=== PATIENT | male | born 1955 | race American Indian/Alaskan Native ===

== ENCOUNTER 2016-04-11 12:55 | Inpatient (IN) | payer MEDICARE ==
--- NOTE | 2016-04-11 15:21 | Admit Criteria Form ---
Admission Criteria Documentation: FEBRILE ILLNESS, WITHOUT FOCAL INFECTION Clinical Indications for Admission to Inpatient Care (Place 'X' for any and all applicable criteria): Admission is indicated for ANY ONE of the following (1)(2)(3): [ ] I. Bacteremia [ X]II. Suspected or identified specific infection requiring hospitalization (eg, meningitis, endocarditis) [ ]III. Hemodynamic instability [ ]IV. Altered mental status [ ]V. Failure or unavailability of outpatient antimicrobial treatment [ ]. Hypoxemia [ ]VII. Seizures [ ]VIII. High-risk febrile neutropenia [ ]IX. Need for parenteral antibiotic in patient who is likely to abuse vascular access device (eg, injection drug user) [A](7) [ ]X. Temperature greater than 104.9 degrees F (40.5 degrees C) (oral) [X ]XI. Inpatient admission required rather than observation care because of ANY ONE of the following: [X ]a) Specific infection identified that is too severe for outpatient treatment or observation care trial [ ]b) Metabolic disorder (eg, hypoglycemia, hyperglycemia, metabolic acidosis) that is severe or persistent [ ]c) Temperature greater than 103.1 degrees F (39.5 degrees C) ( oral) that is not responsive to observation care treatment [ ]d) IV fluid to replace significant ongoing (eg, for over 24 hours) losses (> 3 L/m2 per day) [ ]e) Supplemental oxygen or respiratory treatments for over 24 hours that is performable only in acute inpatient setting [ ]f) Parenteral nutrition regimen need that must be implemented on inpatient basis [ ]g) Strict or protective (eg, laminar flow) isolation [X ]h) Other condition, treatment or monitoring requiring inpatient admission Extended stay beyond goal length of stay may be needed for(1)(3) [ ]a) Sepsis or septic shock(22) [ ]b) Positive blood cultures [ ]c) Insufficient oral intake [ ]d) High-risk febrile neutropenia(29)(30) [ ]e) Continued fever and clinical instability [ ]f) Clinically active comorbid illness (e.g,heart failure, renal failure , diabetes) The [facility] content created by [facility] has been revised. The portions of the content which have been revised are identified through the use of italic text or in bold, and Celia Bojorquez has neither reviewed nor approved the modified material. All other unmodified content is copyright [facility]. Please see references footnoted in the original [facility] edition 2016 Admission Criteria Met: Yes
[2016-04-11] MEDS ORDERED: NACL 0.9% 1000 ML 1,000 ML IV ONE (15:35)
[2016-04-11] MEDS ORDERED: ROCEPHIN/NS 1 GM/50 ML 1 GM/50 ML BAG IV ONE (15:36)
[2016-04-11 16:07] LABS: Bacteria,Urine 1+ /HPF (Negative); Bilirubin,Urine NEG (Negative); Blood,Urine MOD (Negative); Ketones,Urine NEG (Negative); Leukocyte Esterase,Urine NEG (Negative); Nitrite,Urine NEG (Negative); Urobilinogen,Urine < 2.0 mg/dL (<2.0)
[2016-04-11 16:41] LABS: INR 1.8 (0.87-1.13)
[2016-04-11 16:42] LABS: Partial Thromboplastin Time 38.2 Sec. (24.2-36.6)
[2016-04-11] MEDS ORDERED: TYLENOL PO ONE (16:55)
--- NOTE | 2016-04-11 17:09 | XRay Report ---
PORTABLE CHEST: An AP portable view of the chest demonstrates a normal cardiac contour considering the limits of this technique. The lungs are clear with no evidence of infiltrate, fluid or failure. No change compared to November 25, 2009. IMPRESSION: Normal portable chest.
[2016-04-11 17:16] LABS: Hematocrit 36.4 % (35.5-45.6); Hemoglobin 12.4 gm/dl (11.8-15.2); Mean Corpuscular HGB Conc 34 % (32-34); Mean Corpuscular Hemoglobin 30 pg (28-32); Mean Corpuscular Volume 88 fl (84-94); Platelet Count 109 K/mm3 (140-440); Red Blood Count 4.14 M/mm3 (3.65-5.03); Red Cell Distribution Width 14.2 % (13.2-15.2); White Blood Count 27.9 K/mm3 (4.5-11.0)
[2016-04-11 17:57] LABS: Anisocytosis 1+; Blastocytes % (Manual) 0 %; Target Cells Few
[2016-04-11 17:58] LABS: Diff Status Complete; Platelet Estimate Appears Decreased
--- NOTE | 2016-04-11 18:01 | Emergency Department Report ---
ED General Adult HPI - General Chief complaint: Fall Stated complaint: FELL OUT OF BED/LAC TO HEAD Time Seen by Provider: 04/11/16 15:09 Source: patient Mode of arrival: Stretcher Limitations: No Limitations - History of Present Illness Initial comments: The patient is sent from a detention after falling and of a bed. Apparently he sustained a head avulsion. He is not complaining of any headache. He is persistently perseverating about having the nurse bring him to the bathroom. He is obviously a bit delirious. He is unable to give any significant history. However he can respond to questions. He denies any weakness or numbness in the extremities. Apparently he is on oral anticoagulation. He has a chronically swollen and somewhat deformed left leg. He is able to deny chest pain abdominal plain leg pain. Really has no specific complaints other than wanting to go to the bathroom. -: hour(s) Location: head - Related Data Home Medications Medication Instructions Recorded Confirmed Last Taken Citalopram [celeXA] 10 mg PO QDAY 04/11/16 04/11/16 Unknown Furosemide [Lasix TAB] 80 mg PO QDAY 04/11/16 04/11/16 Unknown Gabapentin [Neurontin] 800 mg PO BID 04/11/16 04/11/16 Unknown HYDROcodone/APAP 7.5-325 [Ramona 1 each PO Q8HR PRN 04/11/16 04/11/16 Unknown 7.5/325] Hydralazine HCl [Apresoline TAB] 50 mg PO Q8HR 04/11/16 04/11/16 Unknown Isosorbide Dinitrate [Isordil 20 mg PO TID 04/11/16 04/11/16 Unknown Titradose] Labetalol HCl 200 mg PO Q12H 04/11/16 04/11/16 Unknown Multivit-Min/Iron Fum/Folic AC 1 each PO DAILY 04/11/16 04/11/16 Unknown [Drsfg-Peppsji-Fiombjkg Tablet] Omeprazole 20.6 mg PO DAILY 04/11/16 04/11/16 Unknown Phenytoin [Dilantin] 100 mg PO QID 04/11/16 04/11/16 Unknown Potassium Chloride [Klor-Con 10] 10 meq PO DAILY 04/11/16 04/11/16 Unknown Protein Supplement [Promod] 30 ml PO BID 04/11/16 04/11/16 Unknown Spironolactone [Aldactone] 25 mg PO BID 04/11/16 04/11/16 Unknown Tamsulosin [Flomax] 0.4 mg PO QDAY 04/11/16 04/11/16 Unknown Warfarin Sodium [Coumadin] 4 mg PO QDAY 04/11/16 04/11/16 Unknown cloNIDine [Catapres] 0.2 mg PO QHS 04/11/16 04/11/16 Unknown Allergies Allergy/AdvReac Type Severity Reaction Status Date / Time No Known Allergies Allergy Unverified 04/04/13 21:52 ED Review of Systems ROS: Stated complaint: FELL OUT OF BED/LAC TO HEAD Other details as noted in HPI Comment: Unobtainable due to pts medical conditions ED Past Medical Hx - Past Medical History Previous Medical History?: Yes Hx Hypertension: Yes Hx CVA: Yes (IMPAIRED GAIT R/T CVA) Hx Seizures: Yes - Surgical History Past Surgical History?: Yes Additional Surgical History: hernia - Social History Smoking Status: Never Smoker Substance Use Type: None - Medications Home Medications: Home Medications Medication Instructions Recorded Confirmed Last Taken Type Citalopram [celeXA] 10 mg PO QDAY 04/11/16 04/11/16 Unknown History Furosemide [Lasix TAB] 80 mg PO QDAY 04/11/16 04/11/16 Unknown History Gabapentin [Neurontin] 800 mg PO BID 04/11/16 04/11/16 Unknown History HYDROcodone/APAP 7.5-325 [Ramona 1 each PO Q8HR PRN 04/11/16 04/11/16 Unknown History 7.5/325] Hydralazine HCl [Apresoline TAB] 50 mg PO Q8HR 04/11/16 04/11/16 Unknown History Isosorbide Dinitrate [Isordil 20 mg PO TID 04/11/16 04/11/16 Unknown History Titradose] Labetalol HCl 200 mg PO Q12H 04/11/16 04/11/16 Unknown History Multivit-Min/Iron Fum/Folic AC 1 each PO DAILY 04/11/16 04/11/16 Unknown History [Xzqfj-Csmfjna-Yjtfngmg Tablet] Omeprazole 20.6 mg PO DAILY 04/11/16 04/11/16 Unknown History Phenytoin [Dilantin] 100 mg PO QID 04/11/16 04/11/16 Unknown History Potassium Chloride [Klor-Con 10] 10 meq PO DAILY 04/11/16 04/11/16 Unknown History Protein Supplement [Promod] 30 ml PO BID 04/11/16 04/11/16 Unknown History Spironolactone [Aldactone] 25 mg PO BID 04/11/16 04/11/16 Unknown History Tamsulosin [Flomax] 0.4 mg PO QDAY 04/11/16 04/11/16 Unknown History Warfarin Sodium [Coumadin] 4 mg PO QDAY 04/11/16 04/11/16 Unknown History cloNIDine [Catapres] 0.2 mg PO QHS 04/11/16 04/11/16 Unknown History ED Physical Exam - General Limitations: No Limitations General appearance: other (febrile and somewhat agitated) - Head Head exam: Present: other (with a 2 cm anterior superficial forehead laceration) - Eye Eye exam: Absent: scleral icterus - ENT ENT exam: Present: normal exam - Neck Neck exam: Absent: tenderness, meningismus - Respiratory Respiratory exam: Present: normal lung sounds bilaterally. Absent: respiratory distress - Cardiovascular Cardiovascular Exam: Present: regular rate, normal rhythm. Absent: systolic murmur, diastolic murmur, rubs, gallop - GI/Abdominal GI/Abdominal exam: Present: soft. Absent: distended, tenderness, guarding, rebound - Extremities Exam Extremities exam: Present: other (cannot visualize patient's back substantial lymphedema of the left leg. Dressed ulcer. The right leg is wrapped tightly with an Krishna wrap. Externally rotated.). Absent: tenderness (acute tenderness to range of motion of the hip or lower extremity) - Back Exam Back exam: Present: other (cannot visualized asked nurses to inspect for decubiti) - Neurological Exam Neurological exam: Present: other (patient not moving left leg well history of functional quadriplegia). Absent: CN II-XII intact (no acute apparent cranial nerve deficit) - Psychiatric Psychiatric exam: Present: agitated - Skin Skin exam: Present: other (as above) - Other Other exam information: Popliteal pulses are present on Doppler both legs. Still pulses are negative per nurse bilaterally. ED Course Vital Signs 04/11/16 04/11/16 04/11/16 14:18 14:41 14:51 Temperature 98.1 F Pulse Rate 103 H 109 H Respiratory 16 23 Rate Blood Pressure 170/78 126/74 O2 Sat by Pulse 99 95 93 Oximetry 04/11/16 04/11/16 04/11/16 15:01 15:10 15:11 Temperature 103.1 F H Pulse Rate 111 H 113 H 116 H Respiratory 15 21 Rate Blood Pressure 126/74 106/70 O2 Sat by Pulse 86 89 Oximetry 04/11/16 04/11/16 04/11/16 15:21 15:30 15:41 Temperature Pulse Rate 110 H 107 H 106 H Respiratory 22 18 18 Rate Blood Pressure 106/70 102/46 102/46 O2 Sat by Pulse 94 90 90 Oximetry 04/11/16 04/11/16 04/11/16 15:51 16:00 16:02 Temperature Pulse Rate 107 H Respiratory 11 L 14 Rate Blood Pressure 102/46 102/46 O2 Sat by Pulse 95 93 98 Oximetry 04/11/16 04/11/16 04/11/16 16:11 16:21 16:30 Temperature Pulse Rate 104 H 102 H 101 H Respiratory 17 17 15 Rate Blood Pressure 90/51 90/51 94/51 O2 Sat by Pulse 90 94 89 Oximetry 04/11/16 04/11/16 04/11/16 16:41 16:51 16:52 Temperature 100.7 F H Pulse Rate 100 H 99 H Respiratory 13 15 Rate Blood Pressure 94/51 94/51 O2 Sat by Pulse 94 96 Oximetry 04/11/16 04/11/16 04/11/16 17:00 17:11 17:21 Temperature Pulse Rate 100 H 98 H 99 H Respiratory 14 13 16 Rate Blood Pressure 102/55 102/55 102/55 O2 Sat by Pulse 93 96 97 Oximetry 04/11/16 04/11/16 04/11/16 17:31 17:41 17:51 Temperature Pulse Rate 99 H 99 H 100 H Respiratory 15 14 18 Rate Blood Pressure 102/55 111/74 111/74 O2 Sat by Pulse 90 92 Oximetry 04/11/16 04/11/16 04/11/16 18:00 18:11 18:21 Temperature Pulse Rate 99 H 100 H 99 H Respiratory 16 14 17 Rate Blood Pressure 109/62 109/62 109/62 O2 Sat by Pulse 92 92 93 Oximetry 04/11/16 04/11/16 18:25 18:31 Temperature 100.6 F H Pulse Rate 100 H Respiratory 18 Rate Blood Pressure 109/62 O2 Sat by Pulse Oximetry - Reevaluation(s) Reevaluation #1: Currently the lab did not run the patient's chemistries. I have informed them of this. They're running now. Patient is very been admitted by Dr. Montalvo. He has had antibiotic coverage ordered. A bedside ultrasound was performed. This shows a DVT from the superficial femoral to popliteal vein of the left leg. Patient is partially anticoagulated. Dr. Montalvo is aware and will handle further anticoagulation requirements. The chest x-ray shows no acute process. EKG suggests no acute ischemia. 04/11/16 18:59 Reevaluation #2: Strays will be obtained of the lower extremities. Hospitalist was informed. 04/11/16 19:47 04/11/16 19:47 ED Medical Decision Making - Lab Data Result diagrams: 04/11/16 15:32 Laboratory Results - last 24 hr 04/11/16 04/11/16 04/11/16 15:32 15:32 15:32 WBC 27.9 H RBC 4.14 Hgb 12.4 Hct 36.4 MCV 88 MCH 30 MCHC 34 RDW 14.2 Plt Count 109 L Add Manual Diff Complete Total Counted 100 Seg Neuts % (Manual) 89.0 H Band Neutrophils % 10.0 Reactive Lymphs % (Man) 0 Monocytes % (Manual) 1.0 Metamyelocytes % 0 Myelocytes % 0 Promyelocytes % 0 Blast Cells % 0 Nucleated RBC % Not Reportable Seg Neutrophils # Man 24.8 H Band Neutrophils # 2.8 Lymphocytes # (Manual) 0.0 L Abs React Lymphs (Man) 0.0 Monocytes # (Manual) 0.3 Eosinophils # (Manual) 0.0 Basophils # (Manual) 0.0 Metamyelocytes # 0.0 Myelocytes # 0.0 Promyelocytes # 0.0 Blast Cells # 0.0 WBC Morphology Not Reportable Hypersegmented Neuts Not Reportable Hyposegmented Neuts Not Reportable Hypogranular Neuts Not Reportable Smudge Cells Not Reportable Toxic Granulation Not Reportable Toxic Vacuolation Not Reportable Dohle Bodies Not Reportable Pelger-Huet Anomaly Not Reportable Zonia Rods Not Reportable Platelet Estimate Appears decreased Clumped Platelets Not Reportable Plt Clumps, EDTA Not Reportable Large Platelets Not Reportable Giant Platelets Not Reportable Platelet Satelliting Not Reportable Plt Morphology Comment Not Reportable RBC Morphology Not Reportable Dimorphic RBCs Not Reportable Polychromasia Not Reportable Hypochromasia Not Reportable Poikilocytosis Not Reportable Anisocytosis 1+ Microcytosis Not Reportable Macrocytosis Not Reportable Spherocytes Not Reportable Pappenheimer Bodies Not Reportable Sickle Cells Not Reportable Target Cells Few Tear Drop Cells Not Reportable Ovalocytes Not Reportable Helmet Cells Not Reportable Crowell-Roca Bodies Not Reportable Gordon Rings Not Reportable [place] Cells Not Reportable Bite Cells Not Reportable Crenated Cell Not Reportable Elliptocytes Not Reportable Acanthocytes (Spur) Not Reportable Rouleaux Not Reportable Hemoglobin C Crystals Not Reportable Schistocytes Not Reportable Malaria parasites Not Reportable Wang Bodies Not Reportable Hem Pathologist Commnt No PT 20.9 H INR 1.80 H APTT 38.2 H Lactic Acid 1.9 Urine Color Urine Turbidity Urine pH Ur Specific [place] Urine Protein Urine Glucose (UA) Urine Ketones Urine Blood Urine Nitrite Urine Bilirubin Urine Urobilinogen Ur Leukocyte Esterase Urine WBC (Auto) Urine RBC (Auto) U Epithel Cells (Auto) Urine Bacteria (Auto) 04/11/16 15:38 WBC RBC Hgb Hct MCV MCH MCHC RDW Plt Count Add Manual Diff Total Counted Seg Neuts % (Manual) Band Neutrophils % Reactive Lymphs % (Man) Monocytes % (Manual) Metamyelocytes % Myelocytes % Promyelocytes % Blast Cells % Nucleated RBC % Seg Neutrophils # Man Band Neutrophils # Lymphocytes # (Manual) Abs React Lymphs (Man) Monocytes # (Manual) Eosinophils # (Manual) Basophils # (Manual) Metamyelocytes # Myelocytes # Promyelocytes # Blast Cells # WBC Morphology Hypersegmented Neuts Hyposegmented Neuts Hypogranular Neuts Smudge Cells Toxic Granulation Toxic Vacuolation Dohle Bodies Pelger-Huet Anomaly Zonia Rods Platelet Estimate Clumped Platelets Plt Clumps, EDTA Large Platelets Giant Platelets Platelet Satelliting Plt Morphology Comment RBC Morphology Dimorphic RBCs Polychromasia Hypochromasia Poikilocytosis Anisocytosis Microcytosis Macrocytosis Spherocytes Pappenheimer Bodies Sickle Cells Target Cells Tear Drop Cells Ovalocytes Helmet Cells Crowell-Roca Bodies Gordon Rings Susan Cells Bite Cells Crenated Cell Elliptocytes Acanthocytes (Spur) Rouleaux Hemoglobin C Crystals Schistocytes Malaria parasites Wang Bodies Hem Pathologist Commnt PT INR APTT Lactic Acid Urine Color Yellow Urine Turbidity Clear Urine pH 6.0 Ur Specific [place] 1.019 Urine Protein 30 mg/dl Urine Glucose (UA) Neg Urine Ketones Neg Urine Blood Mod Urine Nitrite Neg Urine Bilirubin Neg Urine Urobilinogen < 2.0 Ur Leukocyte Esterase Neg Urine WBC (Auto) 3.0 Urine RBC (Auto) 5.0 U Epithel Cells (Auto) < 1.0 Urine Bacteria (Auto) 1+ Laboratory Results - last 24 hr 04/11/16 04/11/16 04/11/16 15:32 15:32 15:32 WBC 27.9 H RBC 4.14 Hgb 12.4 Hct 36.4 MCV 88 MCH 30 MCHC 34 RDW 14.2 Plt Count 109 L Add Manual Diff Complete Total Counted 100 Seg Neuts % (Manual) 89.0 H Band Neutrophils % 10.0 Reactive Lymphs % (Man) 0 Monocytes % (Manual) 1.0 Metamyelocytes % 0 Myelocytes % 0 Promyelocytes % 0 Blast Cells % 0 Nucleated RBC % Not Reportable Seg Neutrophils # Man 24.8 H Band Neutrophils # 2.8 Lymphocytes # (Manual) 0.0 L Abs React Lymphs (Man) 0.0 Monocytes # (Manual) 0.3 Eosinophils # (Manual) 0.0 Basophils # (Manual) 0.0 Metamyelocytes # 0.0 Myelocytes # 0.0 Promyelocytes # 0.0 Blast Cells # 0.0 WBC Morphology Not Reportable Hypersegmented Neuts Not Reportable Hyposegmented Neuts Not Reportable Hypogranular Neuts Not Reportable Smudge Cells Not Reportable Toxic Granulation Not Reportable Toxic Vacuolation Not Reportable Dohle Bodies Not Reportable Pelger-Huet Anomaly Not Reportable Zonia Rods Not Reportable Platelet Estimate Appears decreased Clumped Platelets Not Reportable Plt Clumps, EDTA Not Reportable Large Platelets Not Reportable Giant Platelets Not Reportable Platelet Satelliting Not Reportable Plt Morphology Comment Not Reportable RBC Morphology Not Reportable Dimorphic RBCs Not Reportable Polychromasia Not Reportable Hypochromasia Not Reportable Poikilocytosis Not Reportable Anisocytosis 1+ Microcytosis Not Reportable Macrocytosis Not Reportable Spherocytes Not Reportable Pappenheimer Bodies Not Reportable Sickle Cells Not Reportable Target Cells Few Tear Drop Cells Not Reportable Ovalocytes Not Reportable Helmet Cells Not Reportable Crowell-Roca Bodies Not Reportable Gordon Rings Not Reportable [place] Cells Not Reportable Bite Cells Not Reportable Crenated Cell Not Reportable Elliptocytes Not Reportable Acanthocytes (Spur) Not Reportable Rouleaux Not Reportable Hemoglobin C Crystals Not Reportable Schistocytes Not Reportable Malaria parasites Not Reportable Wang Bodies Not Reportable Hem Pathologist Commnt No PT 20.9 H INR 1.80 H APTT 38.2 H Lactic Acid 1.9 Urine Color Urine Turbidity Urine pH Ur Specific [place] Urine Protein Urine Glucose (UA) Urine Ketones Urine Blood Urine Nitrite Urine Bilirubin Urine Urobilinogen Ur Leukocyte Esterase Urine WBC (Auto) Urine RBC (Auto) U Epithel Cells (Auto) Urine Bacteria (Auto) 04/11/16 15:38 WBC RBC Hgb Hct MCV MCH MCHC RDW Plt Count Add Manual Diff Total Counted Seg Neuts % (Manual) Band Neutrophils % Reactive Lymphs % (Man) Monocytes % (Manual) Metamyelocytes % Myelocytes % Promyelocytes % Blast Cells % Nucleated RBC % Seg Neutrophils # Man Band Neutrophils # Lymphocytes # (Manual) Abs React Lymphs (Man) Monocytes # (Manual) Eosinophils # (Manual) Basophils # (Manual) Metamyelocytes # Myelocytes # Promyelocytes # Blast Cells # WBC Morphology Hypersegmented Neuts Hyposegmented Neuts Hypogranular Neuts Smudge Cells Toxic Granulation Toxic Vacuolation Dohle Bodies Pelger-Huet Anomaly Zonia Rods Platelet Estimate Clumped Platelets Plt Clumps, EDTA Large Platelets Giant Platelets Platelet Satelliting Plt Morphology Comment RBC Morphology Dimorphic RBCs Polychromasia Hypochromasia Poikilocytosis Anisocytosis Microcytosis Macrocytosis Spherocytes Pappenheimer Bodies Sickle Cells Target Cells Tear Drop Cells Ovalocytes Helmet Cells Crowell-Roca Bodies Gordon Rings [place] Cells Bite Cells Crenated Cell Elliptocytes Acanthocytes (Spur) Rouleaux Hemoglobin C Crystals Schistocytes Malaria parasites Wang Bodies Hem Pathologist Commnt PT INR APTT Lactic Acid Urine Color Yellow Urine Turbidity Clear Urine pH 6.0 Ur Specific [place] 1.019 Urine Protein 30 mg/dl Urine Glucose (UA) Neg Urine Ketones Neg Urine Blood Mod Urine Nitrite Neg Urine Bilirubin Neg Urine Urobilinogen < 2.0 Ur Leukocyte Esterase Neg Urine WBC (Auto) 3.0 Urine RBC (Auto) 5.0 U Epithel Cells (Auto) < 1.0 Urine Bacteria (Auto) 1+ Laboratory Results - last 24 hr 04/11/16 04/11/16 04/11/16 15:32 15:32 15:32 WBC 27.9 H RBC 4.14 Hgb 12.4 Hct 36.4 MCV 88 MCH 30 MCHC 34 RDW 14.2 Plt Count 109 L Add Manual Diff Complete Total Counted 100 Seg Neuts % (Manual) 89.0 H Band Neutrophils % 10.0 Reactive Lymphs % (Man) 0 Monocytes % (Manual) 1.0 Metamyelocytes % 0 Myelocytes % 0 Promyelocytes % 0 Blast Cells % 0 Nucleated RBC % Not Reportable Seg Neutrophils # Man 24.8 H Band Neutrophils # 2.8 Lymphocytes # (Manual) 0.0 L Abs React Lymphs (Man) 0.0 Monocytes # (Manual) 0.3 Eosinophils # (Manual) 0.0 Basophils # (Manual) 0.0 Metamyelocytes # 0.0 Myelocytes # 0.0 Promyelocytes # 0.0 Blast Cells # 0.0 WBC Morphology Not Reportable Hypersegmented Neuts Not Reportable Hyposegmented Neuts Not Reportable Hypogranular Neuts Not Reportable Smudge Cells Not Reportable Toxic Granulation Not Reportable Toxic Vacuolation Not Reportable Dohle Bodies Not Reportable Pelger-Huet Anomaly Not Reportable Zonia Rods Not Reportable Platelet Estimate Appears decreased Clumped Platelets Not Reportable Plt Clumps, EDTA Not Reportable Large Platelets Not Reportable Giant Platelets Not Reportable Platelet Satelliting Not Reportable Plt Morphology Comment Not Reportable RBC Morphology Not Reportable Dimorphic RBCs Not Reportable Polychromasia Not Reportable Hypochromasia Not Reportable Poikilocytosis Not Reportable Anisocytosis 1+ Microcytosis Not Reportable Macrocytosis Not Reportable Spherocytes Not Reportable Pappenheimer Bodies Not Reportable Sickle Cells Not Reportable Target Cells Few Tear Drop Cells Not Reportable Ovalocytes Not Reportable Helmet Cells Not Reportable Crowell-Roca Bodies Not Reportable Gordon Rings Not Reportable Susan Cells Not Reportable Bite Cells Not Reportable Crenated Cell Not Reportable Elliptocytes Not Reportable Acanthocytes (Spur) Not Reportable Rouleaux Not Reportable Hemoglobin C Crystals Not Reportable Schistocytes Not Reportable Malaria parasites Not Reportable Wang Bodies Not Reportable Hem Pathologist Commnt No PT 20.9 H INR 1.80 H APTT 38.2 H Lactic Acid 1.9 Urine Color Urine Turbidity Urine pH Ur Specific [place] Urine Protein Urine Glucose (UA) Urine Ketones Urine Blood Urine Nitrite Urine Bilirubin Urine Urobilinogen Ur Leukocyte Esterase Urine WBC (Auto) Urine RBC (Auto) U Epithel Cells (Auto) Urine Bacteria (Auto) 04/11/16 15:38 WBC RBC Hgb Hct MCV MCH MCHC RDW Plt Count Add Manual Diff Total Counted Seg Neuts % (Manual) Band Neutrophils % Reactive Lymphs % (Man) Monocytes % (Manual) Metamyelocytes % Myelocytes % Promyelocytes % Blast Cells % Nucleated RBC % Seg Neutrophils # Man Band Neutrophils # Lymphocytes # (Manual) Abs React Lymphs (Man) Monocytes # (Manual) Eosinophils # (Manual) Basophils # (Manual) Metamyelocytes # Myelocytes # Promyelocytes # Blast Cells # WBC Morphology Hypersegmented Neuts Hyposegmented Neuts Hypogranular Neuts Smudge Cells Toxic Granulation Toxic Vacuolation Dohle Bodies Pelger-Huet Anomaly Zonia Rods Platelet Estimate Clumped Platelets Plt Clumps, EDTA Large Platelets Giant Platelets Platelet Satelliting Plt Morphology Comment RBC Morphology Dimorphic RBCs Polychromasia Hypochromasia Poikilocytosis Anisocytosis Microcytosis Macrocytosis Spherocytes Pappenheimer Bodies Sickle Cells Target Cells Tear Drop Cells Ovalocytes Helmet Cells Crowell-Roca Bodies Gordon Rings Susan Cells Bite Cells Crenated Cell Elliptocytes Acanthocytes (Spur) Rouleaux Hemoglobin C Crystals Schistocytes Malaria parasites Wang Bodies Hem Pathologist Commnt PT INR APTT Lactic Acid Urine Color Yellow Urine Turbidity Clear Urine pH 6.0 Ur Specific [place] 1.019 Urine Protein 30 mg/dl Urine Glucose (UA) Neg Urine Ketones Neg Urine Blood Mod Urine Nitrite Neg Urine Bilirubin Neg Urine Urobilinogen < 2.0 Ur Leukocyte Esterase Neg Urine WBC (Auto) 3.0 Urine RBC (Auto) 5.0 U Epithel Cells (Auto) < 1.0 Urine Bacteria (Auto) 1+ Laboratory Results - last 24 hr 04/11/16 04/11/16 04/11/16 15:32 15:32 15:32 WBC 27.9 H RBC 4.14 Hgb 12.4 Hct 36.4 MCV 88 MCH 30 MCHC 34 RDW 14.2 Plt Count 109 L Add Manual Diff Complete Total Counted 100 Seg Neuts % (Manual) 89.0 H Band Neutrophils % 10.0 Reactive Lymphs % (Man) 0 Monocytes % (Manual) 1.0 Metamyelocytes % 0 Myelocytes % 0 Promyelocytes % 0 Blast Cells % 0 Nucleated RBC % Not Reportable Seg Neutrophils # Man 24.8 H Band Neutrophils # 2.8 Lymphocytes # (Manual) 0.0 L Abs React Lymphs (Man) 0.0 Monocytes # (Manual) 0.3 Eosinophils # (Manual) 0.0 Basophils # (Manual) 0.0 Metamyelocytes # 0.0 Myelocytes # 0.0 Promyelocytes # 0.0 Blast Cells # 0.0 WBC Morphology Not Reportable Hypersegmented Neuts Not Reportable Hyposegmented Neuts Not Reportable Hypogranular Neuts Not Reportable Smudge Cells Not Reportable Toxic Granulation Not Reportable Toxic Vacuolation Not Reportable Dohle Bodies Not Reportable Pelger-Huet Anomaly Not Reportable Zonia Rods Not Reportable Platelet Estimate Appears decreased Clumped Platelets Not Reportable Plt Clumps, EDTA Not Reportable Large Platelets Not Reportable Giant Platelets Not Reportable Platelet Satelliting Not Reportable Plt Morphology Comment Not Reportable RBC Morphology Not Reportable Dimorphic RBCs Not Reportable Polychromasia Not Reportable Hypochromasia Not Reportable Poikilocytosis Not Reportable Anisocytosis 1+ Microcytosis Not Reportable Macrocytosis Not Reportable Spherocytes Not Reportable Pappenheimer Bodies Not Reportable Sickle Cells Not Reportable Target Cells Few Tear Drop Cells Not Reportable Ovalocytes Not Reportable Helmet Cells Not Reportable Crowell-Roca Bodies Not Reportable Gordon Rings Not Reportable [place] Cells Not Reportable Bite Cells Not Reportable Crenated Cell Not Reportable Elliptocytes Not Reportable Acanthocytes (Spur) Not Reportable Rouleaux Not Reportable Hemoglobin C Crystals Not Reportable Schistocytes Not Reportable Malaria parasites Not Reportable Wang Bodies Not Reportable Hem Pathologist Commnt No PT 20.9 H INR 1.80 H APTT 38.2 H Sodium Potassium Chloride Carbon Dioxide Anion Gap BUN Creatinine Estimated GFR BUN/Creatinine Ratio Glucose Lactic Acid 1.9 Calcium Urine Color Urine Turbidity Urine pH Ur Specific [place] Urine Protein Urine Glucose (UA) Urine Ketones Urine Blood Urine Nitrite Urine Bilirubin Urine Urobilinogen Ur Leukocyte Esterase Urine WBC (Auto) Urine RBC (Auto) U Epithel Cells (Auto) Urine Bacteria (Auto) 04/11/16 04/11/16 15:38 18:21 WBC RBC Hgb Hct MCV MCH MCHC RDW Plt Count Add Manual Diff Total Counted Seg Neuts % (Manual) Band Neutrophils % Reactive Lymphs % (Man) Monocytes % (Manual) Metamyelocytes % Myelocytes % Promyelocytes % Blast Cells % Nucleated RBC % Seg Neutrophils # Man Band Neutrophils # Lymphocytes # (Manual) Abs React Lymphs (Man) Monocytes # (Manual) Eosinophils # (Manual) Basophils # (Manual) Metamyelocytes # Myelocytes # Promyelocytes # Blast Cells # WBC Morphology Hypersegmented Neuts Hyposegmented Neuts Hypogranular Neuts Smudge Cells Toxic Granulation Toxic Vacuolation Dohle Bodies Pelger-Huet Anomaly Zonia Rods Platelet Estimate Clumped Platelets Plt Clumps, EDTA Large Platelets Giant Platelets Platelet Satelliting Plt Morphology Comment RBC Morphology Dimorphic RBCs Polychromasia Hypochromasia Poikilocytosis Anisocytosis Microcytosis Macrocytosis Spherocytes Pappenheimer Bodies Sickle Cells Target Cells Tear Drop Cells Ovalocytes Helmet Cells Crowell-Roca Bodies Gordon Rings Susan Cells Bite Cells Crenated Cell Elliptocytes Acanthocytes (Spur) Rouleaux Hemoglobin C Crystals Schistocytes Malaria parasites Wang Bodies Hem Pathologist Commnt PT INR APTT Sodium 141 Potassium 4.5 Chloride 102.0 Carbon Dioxide 25 Anion Gap 19 BUN 32 H Creatinine 1.8 H Estimated GFR 46 BUN/Creatinine Ratio 17.77 Glucose 71 L Lactic Acid Calcium 8.4 Urine Color Yellow Urine Turbidity Clear Urine pH 6.0 Ur Specific [place] 1.019 Urine Protein 30 mg/dl Urine Glucose (UA) Neg Urine Ketones Neg Urine Blood Mod Urine Nitrite Neg Urine Bilirubin Neg Urine Urobilinogen < 2.0 Ur Leukocyte Esterase Neg Urine WBC (Auto) 3.0 Urine RBC (Auto) 5.0 U Epithel Cells (Auto) < 1.0 Urine Bacteria (Auto) 1+ Laboratory Results - last 24 hr 04/11/16 04/11/16 04/11/16 15:32 15:32 15:32 WBC 27.9 H RBC 4.14 Hgb 12.4 Hct 36.4 MCV 88 MCH 30 MCHC 34 RDW 14.2 Plt Count 109 L Add Manual Diff Complete Total Counted 100 Seg Neuts % (Manual) 89.0 H Band Neutrophils % 10.0 Reactive Lymphs % (Man) 0 Monocytes % (Manual) 1.0 Metamyelocytes % 0 Myelocytes % 0 Promyelocytes % 0 Blast Cells % 0 Nucleated RBC % Not Reportable Seg Neutrophils # Man 24.8 H Band Neutrophils # 2.8 Lymphocytes # (Manual) 0.0 L Abs React Lymphs (Man) 0.0 Monocytes # (Manual) 0.3 Eosinophils # (Manual) 0.0 Basophils # (Manual) 0.0 Metamyelocytes # 0.0 Myelocytes # 0.0 Promyelocytes # 0.0 Blast Cells # 0.0 WBC Morphology Not Reportable Hypersegmented Neuts Not Reportable Hyposegmented Neuts Not Reportable Hypogranular Neuts Not Reportable Smudge Cells Not Reportable Toxic Granulation Not Reportable Toxic Vacuolation Not Reportable Dohle Bodies Not Reportable Pelger-Huet Anomaly Not Reportable Zonia Rods Not Reportable Platelet Estimate Appears decreased Clumped Platelets Not Reportable Plt Clumps, EDTA Not Reportable Large Platelets Not Reportable Giant Platelets Not Reportable Platelet Satelliting Not Reportable Plt Morphology Comment Not Reportable RBC Morphology Not Reportable Dimorphic RBCs Not Reportable Polychromasia Not Reportable Hypochromasia Not Reportable Poikilocytosis Not Reportable Anisocytosis 1+ Microcytosis Not Reportable Macrocytosis Not Reportable Spherocytes Not Reportable Pappenheimer Bodies Not Reportable Sickle Cells Not Reportable Target Cells Few Tear Drop Cells Not Reportable Ovalocytes Not Reportable Helmet Cells Not Reportable Crowell-[place] Bodies Not Reportable Gordon Rings Not Reportable Susan Cells Not Reportable Bite Cells Not Reportable Crenated Cell Not Reportable Elliptocytes Not Reportable Acanthocytes (Spur) Not Reportable Rouleaux Not Reportable Hemoglobin C Crystals Not Reportable Schistocytes Not Reportable Malaria parasites Not Reportable Wang Bodies Not Reportable Hem Pathologist Commnt No PT 20.9 H INR 1.80 H APTT 38.2 H Sodium Potassium Chloride Carbon Dioxide Anion Gap BUN Creatinine Estimated GFR BUN/Creatinine Ratio Glucose Lactic Acid 1.9 Calcium Urine Color Urine Turbidity Urine pH Ur Specific [place] Urine Protein Urine Glucose (UA) Urine Ketones Urine Blood Urine Nitrite Urine Bilirubin Urine Urobilinogen Ur Leukocyte Esterase Urine WBC (Auto) Urine RBC (Auto) U Epithel Cells (Auto) Urine Bacteria (Auto) 04/11/16 04/11/16 15:38 18:21 WBC RBC Hgb Hct MCV MCH MCHC RDW Plt Count Add Manual Diff Total Counted Seg Neuts % (Manual) Band Neutrophils % Reactive Lymphs % (Man) Monocytes % (Manual) Metamyelocytes % Myelocytes % Promyelocytes % Blast Cells % Nucleated RBC % Seg Neutrophils # Man Band Neutrophils # Lymphocytes # (Manual) Abs React Lymphs (Man) Monocytes # (Manual) Eosinophils # (Manual) Basophils # (Manual) Metamyelocytes # Myelocytes # Promyelocytes # Blast Cells # WBC Morphology Hypersegmented Neuts Hyposegmented Neuts Hypogranular Neuts Smudge Cells Toxic Granulation Toxic Vacuolation Dohle Bodies Pelger-Huet Anomaly Zonia Rods Platelet Estimate Clumped Platelets Plt Clumps, EDTA Large Platelets Giant Platelets Platelet Satelliting Plt Morphology Comment RBC Morphology Dimorphic RBCs Polychromasia Hypochromasia Poikilocytosis Anisocytosis Microcytosis Macrocytosis Spherocytes Pappenheimer Bodies Sickle Cells Target Cells Tear Drop Cells Ovalocytes Helmet Cells Crowell-[place] Bodies Gordon Rings Susan Cells Bite Cells Crenated Cell Elliptocytes Acanthocytes (Spur) Rouleaux Hemoglobin C Crystals Schistocytes Malaria parasites Wang Bodies Hem Pathologist Commnt PT INR APTT Sodium 141 Potassium 4.5 Chloride 102.0 Carbon Dioxide 25 Anion Gap 19 BUN 32 H Creatinine 1.8 H Estimated GFR 46 BUN/Creatinine Ratio 17.77 Glucose 71 L Lactic Acid Calcium 8.4 Urine Color Yellow Urine Turbidity Clear Urine pH 6.0 Ur Specific [place] 1.019 Urine Protein 30 mg/dl Urine Glucose (UA) Neg Urine Ketones Neg Urine Blood Mod Urine Nitrite Neg Urine Bilirubin Neg Urine Urobilinogen < 2.0 Ur Leukocyte Esterase Neg Urine WBC (Auto) 3.0 Urine RBC (Auto) 5.0 U Epithel Cells (Auto) < 1.0 Urine Bacteria (Auto) 1+ - EKG Data -: EKG Interpreted by Mn EKG shows normal: sinus rhythm, axis, intervals, ST-T waves Rate: normal - EKG Data Interpretation: other (old inferior wall qs noted nonspecific ST-T wave changes hold his oral Deltasone) - Radiology Data interpreted by me: X-ray no acute process A CT of head showed no acute process Critical care attestation.: If time is entered above; I have spent that time in minutes in the direct care of this critically ill patient, excluding procedure time. ED Disposition Clinical Impression: Febrile illness, acute, Peripheral vascular disease of lower extremity, Lymphedema of left leg, Infected stasis ulcer of left lower extremity Scalp laceration Qualifiers: Encounter type: initial encounter Qualified Code(s): S01.01XA - Laceration without foreign body of scalp, initial encounter Leukocytosis Qualifiers: Leukocytosis type: unspecified Qualified Code(s): D72.829 - Elevated white blood cell count, unspecified Acute deep vein thrombosis of left lower extremity Qualifiers: Affected thrombotic vein of extremity: femoral Qualified Code(s): I82.412 - Acute embolism and thrombosis of left femoral vein Disposition: OP ADMITTED IP TO THIS HOSP Is pt being admited?: Yes Does the pt Need Aspirin: Yes Condition: Stable Referrals: PRIMARY CARE, [Primary Care Provider] - 3-5 Days Time of Disposition: 19:04
--- NOTE | 2016-04-11 18:23 | History and Physical Report ---
History of Present Illness Date of examination: 04/11/16 Chief complaint: Fall History of present illness: Patient is a 61-year-old man from senior care with a history of functional quadriplegia, depression, Leg lymphedema, chronic venous stasis Leg ulcers, BPH , leg DVT on warfarin, seizure disorder and hypertension who presents with falling out of the causing laceration to his left upper forehead followed by confusion. He was found to be febrile in emergency department. 04/11/16 Venous leg Doppler shows CHRONIC DVT NOTED IN [employer], ACUTE DVT NOTED IN [facility], DR. BRODERICK INFORMED. pCxr: normal Past History Past Surgical History: Other (no answering) Social history: full code. denies: smoking, alcohol abuse, prescription drug abuse, IV drug use Family history: no significant family history Medications and Allergies Allergies Allergy/AdvReac Type Severity Reaction Status Date / Time No Known Allergies Allergy Unverified 04/04/13 21:52 Home Medications Medication Instructions Recorded Confirmed Last Taken Type Citalopram [celeXA] 10 mg PO QDAY 04/11/16 04/11/16 Unknown History Furosemide [Lasix TAB] 80 mg PO QDAY 04/11/16 04/11/16 Unknown History Gabapentin [Neurontin] 800 mg PO BID 04/11/16 04/11/16 Unknown History HYDROcodone/APAP 7.5-325 [[place] 1 each PO Q8HR PRN 04/11/16 04/11/16 Unknown History 7.5/325] Hydralazine HCl [Apresoline TAB] 50 mg PO Q8HR 04/11/16 04/11/16 Unknown History Isosorbide Dinitrate [Isordil 20 mg PO TID 04/11/16 04/11/16 Unknown History Titradose] Labetalol HCl 200 mg PO Q12H 04/11/16 04/11/16 Unknown History Multivit-Min/Iron Fum/Folic AC 1 each PO DAILY 04/11/16 04/11/16 Unknown History [Qjjrd-Hvxkrvj-Dikphcfm Tablet] Omeprazole 20.6 mg PO DAILY 04/11/16 04/11/16 Unknown History Phenytoin [Dilantin] 100 mg PO QID 04/11/16 04/11/16 Unknown History Potassium Chloride [Klor-Con 10] 10 meq PO DAILY 04/11/16 04/11/16 Unknown History Protein Supplement [Promod] 30 ml PO BID 04/11/16 04/11/16 Unknown History Spironolactone [Aldactone] 25 mg PO BID 04/11/16 04/11/16 Unknown History Tamsulosin [Flomax] 0.4 mg PO QDAY 04/11/16 04/11/16 Unknown History Warfarin Sodium [Coumadin] 4 mg PO QDAY 04/11/16 04/11/16 Unknown History cloNIDine [Catapres] 0.2 mg PO QHS 04/11/16 04/11/16 Unknown History Active Meds: Active Medications Acetaminophen/Hydrocodone Bitart ([place] 7.5/325) 1 each PO Q8HR PRN PRN Reason: Pain Citalopram Hydrobromide (Celexa) 10 mg PO QDAY DAVI Clonidine HCl (Catapres) 0.2 mg PO QHS [facility] Sodium Chloride (Nacl 0.9% 1000 Ml) 1,000 mls @ 125 mls/hr IV ONCE ONE Stop: 04/11/16 23:34 Last Admin: 04/11/16 16:24 Dose: 125 mls/hr Piperacillin Sod/Tazobactam Sod (Zosyn/Ns 4.5gm/100ml) 4.5 gm in 100 mls @ 200 mls/hr IV Q8H DAVI PRN Reason: Protocol Isosorbide Dinitrate (Isordil Titradose) 20 mg PO TID DAVI Miscellaneous Medication (Furosemide [Lasix Tab]) 80 mg PO QDAY [facility] Miscellaneous Medication (Gabapentin [Neurontin]) 800 mg PO BID DAVI Miscellaneous Medication (Hydralazine Hcl [Apresoline Tab]) 50 mg PO Q8HR [facility] Miscellaneous Medication (Multivit-Min/Iron Fum/Folic Ac [Multi-Vitamin- Minerals Tablet]) 1 each PO DAILY DAVI Phenytoin (Dilantin) 100 mg PO QID DAVI Tamsulosin HCl (Flomax) 0.4 mg PO QDAY DAVI Vancomycin HCl (Vancomycin Pharmacy To Dose) 1 each IV PKCONSULT DAVI PRN Reason: Protocol Review of Systems ROS unobtainable: due to mental status Exam - Physical Exam Narrative exam: GEN: WDWN, NAD, AWAKE, ALERT, ORIENTATED x 2 HEENT: No NCAT--?quarter size ulcer laceration with old blood left frontal above forehead on the hairline, PERRL, EOMI, OP CLEAR NECK: SUPPLE, NO THYROMEGALY, NO JVD, NO LAD CVS: regular tachycardia, NORMAL S1S2 LUNGS/CHEST: CTA B, NORMAL CHEST EXPANSION B, GOOD AIR ENTRY B ABD: SOFT NTND, GBS, NO REBOUND OR GUARDING EXT/SKIN: bilateral lymphedema, left leg > right leg. Both with chronic venous changes MSK: legs contracted NEURO: CN 2-12 GROSSLY INTACT, NO new FOCAL DEFICITS PSY: CALM - Constitutional Vitals: Temp Pulse Resp BP Pulse Ox 100.7 F H 99 H 16 109/62 92 04/11/16 16:52 04/11/16 18:00 04/11/16 18:00 04/11/16 18:00 04/11/16 18:00 Results - Labs CBC & Chem 7: 04/11/16 15:32 Labs: Abnormal lab results 04/11/16 04/11/16 Range/Units 15:32 15:32 WBC 27.9 H (4.5-11.0) K/mm3 Plt Count 109 L (140-440) K/mm3 Seg Neuts % (Manual) 89.0 H (40.0-70.0) % Seg Neutrophils # Man 24.8 H (1.8-7.7) K/mm3 Lymphocytes # (Manual) 0.0 L (1.2-5.4) K/mm3 PT 20.9 H (12.2-14.9) Sec. INR 1.80 H (0.87-1.13) APTT 38.2 H (24.2-36.6) Sec. Assessment and Plan Patient is a 61-year-old man from senior care with a history of functional quadriplegia, depression, Leg lymphedema, chronic venous stasis Leg ulcers, BPH , leg DVT on warfarin, seizure disorder and hypertension who presents with falling out of the causing laceration to his left upper forehead followed by confusion. He was found to be febrile in emergency department. 04/11/16 Venous leg Doppler shows CHRONIC DVT NOTED IN [employer], ACUTE DVT NOTED IN [facility] V, DR. MEGGAN GARCIA. pCxr: normal 1. Sepsis most likely from leg cellulitis: iv vanc and zosyn, consider ID consult, wound care. 2. Acute on chronic left leg DVT: He is already on Warfarin, not therapeutic, will address 3. Acute encephalopathy due to the above. 4. Fall and head trauma: get CT head, Physical therapy
[2016-04-11 18:57] LABS: BUN/Creatinine Ratio 17.77; Calcium 8.4 mg/dL (8.4-10.2); Potassium 4.5 mmol/L (3.6-5.0)
[2016-04-11] MEDS ORDERED: VANCOMYCIN PHARMACY TO DOSE IV SCH (19:00)
--- NOTE | 2016-04-11 19:16 | Cat Scan Report ---
FINAL REPORT PROCEDURE: CT HEAD/BRAIN WO CON TECHNIQUE: Computerized tomography of the head was performed without contrast material. HISTORY: head trauma pain COMPARISON: No prior studies are available for comparison. FINDINGS: Visualized portions of the paranasal sinuses and mastoid air cells are clear. No calvarial fracture is seen. Old lisa holes are seen in the frontal skull. Idiopathic calcifications are seen in the falx. Cerebral ventricles are normal in size. Moderate diffuse volume loss the brain is advanced for the patient's age. Moderate chronic small vessel ischemic changes are seen. No acute intracranial hemorrhage or mass effect is seen. IMPRESSION: Moderate chronic small vessel ischemic changes are seen without evidence of acute abnormality.
[2016-04-11 19:48] LABS: Alanine Aminotransferase 30 units/L (7-56); Albumin 3.7 g/dL (3.9-5); Albumin/Globulin Ratio 0.8 %; Alkaline Phosphatase 105 units/L (35-129); Anion Gap 20 mmol/L; BUN/Creatinine Ratio 17.22; Bilirubin,Total 0.5 mg/dL (0.1-1.2); Blood Urea Nitrogen 31 mg/dL (9-20); Calcium 8.7 mg/dL (8.4-10.2); Carbon Dioxide 25 mmol/L (22-30); Chloride 98.8 mmol/L (98-107); Glucose 71 mg/dL (75-100); Potassium 4.1 mmol/L (3.6-5.0); Sodium 140 mmol/L (137-145); Total Protein 8.1 g/dL (6.3-8.2)
[2016-04-11] MEDS ORDERED: BABY ASPIRIN PO ONE (19:48)
[2016-04-11 19:54] LABS: Bilirubin,Direct < 0.2 mg/dL (0-0.2); Bilirubin,Indirect 0.3 mg/dL
[2016-04-11 20:00] LABS: Cholesterol 135 mg/dL (50-199); Triglycerides 78 mg/dL (2-149)
[2016-04-11] MEDS ORDERED: VANCOMYCIN VIAL 1,250 MG in NACL 0.9% 250ML 250 ML IV ONE (20:00)
[2016-04-11 20:01] LABS: HDL Cholesterol 68 mg/dL (40-59); LDL Cholesterol,Direct 52 mg/dL (50-130)
[2016-04-11] MEDS ORDERED: TENIVAC IM ONE (21:00)
[2016-04-11] MEDS ORDERED: NON-FORMULARY (Hydralazine Hcl [Apresoline Tab] 50 MG) PO SCH (22:00)
[2016-04-11] MEDS ORDERED: NON-FORMULARY (Gabapentin [Neurontin] 800 MG) PO SCH (22:00)
[2016-04-11] MEDS: ISORDIL TITRADOSE PO SCH (23:07)
[2016-04-11] MEDS ORDERED: BABY ASPIRIN ONE (23:10)
[2016-04-11] MEDS: ZOSYN/NS 4.5GM/100ML 4.5 GM/100 ML VIAL IV SCH (23:14)
[2016-04-12] MEDS: CATAPRES PO SCH ×3 (04:59→23:31)
[2016-04-12] MEDS: DILANTIN PO SCH ×6 (05:00→23:30)
[2016-04-12] MEDS: APRESOLINE PO SCH ×5 (05:00→23:30)
[2016-04-12] MEDS: NEURONTIN PO SCH ×4 (05:00→23:31)
[2016-04-12] MEDS: ZOSYN/NS 4.5GM/100ML 4.5 GM/100 ML VIAL IV SCH ×3 (05:00→21:27)
[2016-04-12] MEDS: HEPARIN SUB-Q SCH ×5 (05:00→23:33)
[2016-04-12] MEDS: NORCO 7.5/325 PO PRN ×3 (05:19→23:30)
[2016-04-12 05:51] LABS: INR 2.18 (0.87-1.13)
--- NOTE | 2016-04-12 07:47 | Vascular Lab Report ---
Left Lower Extremity Venous Duplex Study: Reason for Exam: Swelling. Comments on the Right: A limited duplex study was done of the proximal veins of the right lower extremity. All veins visualized are freely compressible without evidence of internal echogenicity. Flow is spontaneous and phasic throughout. No evidence of acute or chronic thrombus is seen in any of the vessels visualized. Comments on the Left: Acute deep venous thrombosis is noted in the popliteal vein. Currently nonocclusive deep venous thrombosis noted in the femoral vein. Soft tissue changes noted in the left side. The significance of them is uncertain. If clinically warranted followup CT or MRI should be considered. The remaining veins visualized are freely compressible without evidence of internal echogenicity. Spontaneous and phasic flow is present proximally. Impression: Deep venous thrombosis in the left lower extremity.
--- NOTE | 2016-04-12 08:05 | XRay Report ---
LEFT FEMUR: History: Pain after fall, deformity. AP and lateral views of the femur demonstrate normal mineralization and contours for this patient's age. No destructive changes are noted and the adjacent soft tissues are normal. IMPRESSION: Unremarkable left femur.
--- NOTE | 2016-04-12 09:38 | XRay Report ---
LEFT TIBIA AND FIBULA, 2 VIEWS: HISTORY: Deformity, pain after fall. FINDINGS: There is severe diffuse subcutaneous edema. Bone mineralization is within normal limits. There is no evidence for fracture, periostitis or bony destruction. IMPRESSION: Diffuse subcutaneous edema. No osseous abnormality is detected.
[2016-04-12] MEDS ORDERED: NON-FORMULARY (Furosemide [Lasix Tab] 80 MG) PO SCH (10:00)
[2016-04-12] MEDS ORDERED: LASIX PO SCH (10:00)
[2016-04-12] MEDS ORDERED: NON-FORMULARY (Multivit-Min/Iron Fum/Folic Ac [Multi-Vitamin-Minerals Tablet] 1 EACH) PO SCH (10:00)
[2016-04-12] MEDS: celeXA PO SCH (11:07)
[2016-04-12] MEDS: FLOMAX PO SCH (11:07)
[2016-04-12] MEDS: ISORDIL TITRADOSE PO SCH ×3 (11:07→21:00)
[2016-04-12] MEDS: THERAGRAN Tab PO SCH (11:08)
[2016-04-12] MEDS: LASIX PO SCH ×2 (11:08→23:31)
[2016-04-12] MEDS: COUMADIN PO SCH (16:43)
[2016-04-12] MEDS ORDERED: COUMADIN PO SCH (17:00)
--- NOTE | 2016-04-12 19:27 | Progress Note ---
Assessment and Plan Assessment and plan: 1. Sepsis likely secondary to leg cellulitis - started on broad spectrum antibiotics, ivf 2. Bilateral LE lymphedema and ulcers - local wound care 3. Acute on chronic DVT LLE - INR subtherapeutic on admission, WARFARIN dose adjusted 4. Acute renal failure - likely secondary to vasomotor nephropathy; continue ivf ; monitor bun/cr and electrolytes; if further worsening, obtain renal US and urine studies 5. Acute metabolic encephalopathy - treat underlying conditions; check Dilantin level 6. Elevated troponin - likely nonspecific in the setting of acute renal failure 7. Seizure disoredr - continue Dilantin, check level 8. HTN - on Clonidine, spironolactone, labetalol, lasix; (BB, diuretic - spironolactone on hold); monitor BP and adjust regimen as needed 9. Fall - Ct head with no acute abnormality; X-rays L femur, tibia/fibula with no fracture or dislocation 10. Debility/? bedbound - evaluated by PT and is totally depended with transfers ; not a candidate for [facility] facility 11. DVT prophylaxis - anticoagulated with warfarin History Interval history: awake, alert, but confused no events overnight Hospitalist Physical - Constitutional Vitals: Temp Pulse Resp BP Pulse Ox 99.9 F H 108 H 18 94/52 92 04/12/16 15:10 04/12/16 15:10 04/12/16 15:10 04/12/16 15:10 04/12/16 13:31 General appearance: Present: no acute distress, other (thin, chronically-ill appearing, bedbound) - EENT Eyes: Present: PERRL, EOM intact - Neck Neck: Present: supple, normal ROM. Absent: masses or JVD - Respiratory Respiratory effort: normal Respiratory: bilateral: CTA, negative: rales, rhonchi - Cardiovascular Rhythm: other (tachycardic) Heart Sounds: Present: S1 & S2. Absent: systolic murmur - Extremities Extremities: no ischemia, abnormal (LE lymphedema L>R, chronic venous stasis, LLE warmth and tenderness) - Abdominal General gastrointestinal: soft, non-tender, non-distended, normal bowel sounds - Neurologic Neurologic: other (unable to assess) Results - Labs CBC & Chem 7: 04/13/16 08:51 04/13/16 08:51 Labs: Laboratory Last Values WBC 27.9 K/mm3 (4.5-11.0) H 04/11/16 15:32 RBC 4.14 M/mm3 (3.65-5.03) 04/11/16 15:32 Hgb 12.4 gm/dl (11.8-15.2) 04/11/16 15:32 Hct 36.4 % (35.5-45.6) 04/11/16 15:32 MCV 88 fl (84-94) 04/11/16 15:32 MCH 30 pg (28-32) 04/11/16 15:32 MCHC 34 % (32-34) 04/11/16 15:32 RDW 14.2 % (13.2-15.2) 04/11/16 15:32 Plt Count 109 K/mm3 (140-440) L 04/11/16 15:32 Add Manual Diff Complete 04/11/16 15:32 Total Counted 100 04/11/16 15:32 Seg Neuts % (Manual) 89.0 % (40.0-70.0) H 04/11/16 15:32 Band Neutrophils % 10.0 % 04/11/16 15:32 Reactive Lymphs % (Man) 0 % 04/11/16 15:32 Monocytes % (Manual) 1.0 % (0.0-7.3) 04/11/16 15:32 Metamyelocytes % 0 % 04/11/16 15:32 Myelocytes % 0 % 04/11/16 15:32 Promyelocytes % 0 % 04/11/16 15:32 Blast Cells % 0 % 04/11/16 15:32 Nucleated RBC % Not Reportable 04/11/16 15:32 Seg Neutrophils # Man 24.8 K/mm3 (1.8-7.7) H 04/11/16 15:32 Band Neutrophils # 2.8 K/mm3 04/11/16 15:32 Lymphocytes # (Manual) 0.0 K/mm3 (1.2-5.4) L 04/11/16 15:32 Abs React Lymphs (Man) 0.0 K/mm3 04/11/16 15:32 Monocytes # (Manual) 0.3 K/mm3 (0.0-0.8) 04/11/16 15:32 Eosinophils # (Manual) 0.0 K/mm3 (0.0-0.4) 04/11/16 15:32 Basophils # (Manual) 0.0 K/mm3 (0.0-0.1) 04/11/16 15:32 Metamyelocytes # 0.0 K/mm3 04/11/16 15:32 Myelocytes # 0.0 K/mm3 04/11/16 15:32 Promyelocytes # 0.0 K/mm3 04/11/16 15:32 Blast Cells # 0.0 K/mm3 04/11/16 15:32 WBC Morphology Not Reportable 04/11/16 15:32 Hypersegmented Neuts Not Reportable 04/11/16 15:32 Hyposegmented Neuts Not Reportable 04/11/16 15:32 Hypogranular Neuts Not Reportable 04/11/16 15:32 Smudge Cells Not Reportable 04/11/16 15:32 Toxic Granulation Not Reportable 04/11/16 15:32 Toxic Vacuolation Not Reportable 04/11/16 15:32 Dohle Bodies Not Reportable 04/11/16 15:32 Pelger-Huet Anomaly Not Reportable 04/11/16 15:32 Zonia Rods Not Reportable 04/11/16 15:32 Platelet Estimate Appears decreased 04/11/16 15:32 Clumped Platelets Not Reportable 04/11/16 15:32 Plt Clumps, EDTA Not Reportable 04/11/16 15:32 Large Platelets Not Reportable 04/11/16 15:32 Giant Platelets Not Reportable 04/11/16 15:32 Platelet Satelliting Not Reportable 04/11/16 15:32 Plt Morphology Comment Not Reportable 04/11/16 15:32 RBC Morphology Not Reportable 04/11/16 15:32 Dimorphic RBCs Not Reportable 04/11/16 15:32 Polychromasia Not Reportable 04/11/16 15:32 Hypochromasia Not Reportable 04/11/16 15:32 Poikilocytosis Not Reportable 04/11/16 15:32 Anisocytosis 1+ 04/11/16 15:32 Microcytosis Not Reportable 04/11/16 15:32 Macrocytosis Not Reportable 04/11/16 15:32 Spherocytes Not Reportable 04/11/16 15:32 Pappenheimer Bodies Not Reportable 04/11/16 15:32 Sickle Cells Not Reportable 04/11/16 15:32 Target Cells Few 04/11/16 15:32 Tear Drop Cells Not Reportable 04/11/16 15:32 Ovalocytes Not Reportable 04/11/16 15:32 Helmet Cells Not Reportable 04/11/16 15:32 [place] Bodies Not Reportable 04/11/16 15:32 [place] Rings Not Reportable 04/11/16 15:32 [place] Cells Not Reportable 04/11/16 15:32 Bite Cells Not Reportable 04/11/16 15:32 Crenated Cell Not Reportable 04/11/16 15:32 Elliptocytes Not Reportable 04/11/16 15:32 Acanthocytes (Spur) Not Reportable 04/11/16 15:32 Rouleaux Not Reportable 04/11/16 15:32 Hemoglobin C Crystals Not Reportable 04/11/16 15:32 Schistocytes Not Reportable 04/11/16 15:32 Malaria parasites Not Reportable 04/11/16 15:32 Wang Bodies Not Reportable 04/11/16 15:32 Hem Pathologist Commnt No 04/11/16 15:32 PT 24.3 Sec. (12.2-14.9) H 04/12/16 04:46 INR 2.18 (0.87-1.13) H 04/12/16 04:46 APTT 38.2 Sec. (24.2-36.6) H 04/11/16 15:32 Sodium 141 mmol/L (137-145) 04/11/16 18:21 Potassium 4.5 mmol/L (3.6-5.0) 04/11/16 18:21 Chloride 102.0 mmol/L (98-107) 04/11/16 18:21 Carbon Dioxide 25 mmol/L (22-30) 04/11/16 18:21 Anion Gap 19 mmol/L 04/11/16 18:21 BUN 32 mg/dL (9-20) H 04/11/16 18:21 Creatinine 1.8 mg/dL (0.8-1.5) H 04/11/16 18:21 Estimated GFR 46 ml/min 04/11/16 18:21 BUN/Creatinine Ratio 17.77 % 04/11/16 18:21 Glucose 71 mg/dL (75-100) L 04/11/16 18:21 POC Glucose 158 (70-105) H 04/11/16 13:05 Lactic Acid 1.9 mmol/L (0.7-2.0) 04/11/16 15:32 Calcium 8.4 mg/dL (8.4-10.2) 04/11/16 18:21 Total Bilirubin 0.5 mg/dL (0.1-1.2) 04/11/16 15:32 Direct Bilirubin < 0.2 mg/dL (0-0.2) 04/11/16 15:32 Indirect Bilirubin 0.3 mg/dL 04/11/16 15:32 AST 74 units/L (5-40) H 04/11/16 15:32 ALT 30 units/L (7-56) 04/11/16 15:32 Alkaline Phosphatase 105 units/L (35-129) 04/11/16 15:32 Troponin T 0.082 ng/mL (0.00-0.029) H 04/11/16 15:32 NT-Pro-B Natriuret Pep 623.6 pg/mL (0-900) 04/11/16 15:32 Total Protein 8.1 g/dL (6.3-8.2) 04/11/16 15:32 Albumin 3.7 g/dL (3.9-5) L 04/11/16 15:32 Albumin/Globulin Ratio 0.8 % 04/11/16 15:32 Triglycerides 78 mg/dL (2-149) 04/11/16 15:32 Cholesterol 135 mg/dL (50-199) 04/11/16 15:32 LDL Cholesterol Direct 52 mg/dL (50-130) 04/11/16 15:32 HDL Cholesterol 68 mg/dL (40-59) H 04/11/16 15:32 Cholesterol/HDL Ratio 1.98 % 04/11/16 15:32 Urine Color Yellow (Yellow) 04/11/16 15:38 Urine Turbidity Clear (Clear) 04/11/16 15:38 Urine pH 6.0 (5.0-7.0) 04/11/16 15:38 Ur Specific [place] 1.019 (1.003-1.030) 04/11/16 15:38 Urine Protein 30 mg/dl mg/dL (Negative) 04/11/16 15:38 Urine Glucose (UA) Neg mg/dL (Negative) 04/11/16 15:38 Urine Ketones Neg mg/dL (Negative) 04/11/16 15:38 Urine Blood Mod (Negative) 04/11/16 15:38 Urine Nitrite Neg (Negative) 04/11/16 15:38 Urine Bilirubin Neg (Negative) 04/11/16 15:38 Urine Urobilinogen < 2.0 mg/dL (<2.0) 04/11/16 15:38 Ur Leukocyte Esterase Neg (Negative) 04/11/16 15:38 Urine WBC (Auto) 3.0 /HPF (0.0-6.0) 04/11/16 15:38 Urine RBC (Auto) 5.0 /HPF (0.0-6.0) 04/11/16 15:38 U Epithel Cells (Auto) < 1.0 /HPF (0-13.0) 04/11/16 15:38 Urine Bacteria (Auto) 1+ /HPF (Negative) 04/11/16 15:38 - Imaging and Cardiology Chest x-ray: image reviewed CT Scan - head: report reviewed (no acute abnormality; chronoc small vessel ischemic changes)
[2016-04-12] MEDS: VANCOMYCIN VIAL 1,250 MG in NACL 0.9% 250ML 250 ML IV SCH (21:00)
[2016-04-13] MEDS: ZOSYN/NS 4.5GM/100ML 4.5 GM/100 ML VIAL IV SCH ×3 (04:13→21:28)
[2016-04-13] MEDS: HEPARIN SUB-Q SCH ×2 (06:00→13:48)
[2016-04-13] MEDS: APRESOLINE PO SCH ×3 (06:02→21:36)
[2016-04-13 09:11] LABS: Hemoglobin 10.4 gm/dl (11.8-15.2); Mean Corpuscular HGB Conc 35 % (32-34); Mean Corpuscular Hemoglobin 31 pg (28-32); Mean Corpuscular Volume 88 fl (84-94); Red Cell Distribution Width 14.2 % (13.2-15.2)
[2016-04-13 09:17] LABS: Platelet Count 80 K/mm3 (140-440)
[2016-04-13 09:21] LABS: Anion Gap 18 mmol/L; BUN/Creatinine Ratio 21.53; Blood Urea Nitrogen 28 mg/dL (9-20); Calcium 8.4 mg/dL (8.4-10.2); Carbon Dioxide 25 mmol/L (22-30); Chloride 105.7 mmol/L (98-107); Glucose 111 mg/dL (75-100); Sodium 145 mmol/L (137-145)
[2016-04-13 09:29] LABS: INR 2.29 (0.87-1.13)
[2016-04-13] MEDS: celeXA PO SCH (10:33)
[2016-04-13] MEDS: FLOMAX PO SCH (10:33)
[2016-04-13] MEDS: ISORDIL TITRADOSE PO SCH ×3 (10:33→21:37)
[2016-04-13] MEDS: LASIX PO SCH ×2 (10:33→21:36)
[2016-04-13] MEDS: NEURONTIN PO SCH ×2 (10:33→21:37)
[2016-04-13] MEDS: DILANTIN PO SCH ×4 (10:33→21:36)
[2016-04-13] MEDS: THERAGRAN Tab PO SCH (10:33)
[2016-04-13 11:26] LABS: Basophils % (Manual) 0 % (0.0-1.8); Blastocytes % (Manual) 0 %; Eosinophils % (Manual) 0 % (0.0-4.3)
[2016-04-13 11:27] LABS: Platelet Estimate Appears Decreased
[2016-04-13 11:28] LABS: Diff Status Complete; Target Cells Few
[2016-04-13] MEDS: COUMADIN PO SCH (17:18)
--- NOTE | 2016-04-13 19:11 | Progress Note ---
Assessment and Plan Assessment and plan: 1. Sepsis likely secondary to leg cellulitis - started on broad spectrum antibiotics, ivf; WBS trending down, but still febrile 2. Bilateral LE lymphedema and ulcers - local wound care 3. Acute on chronic DVT LLE - INR subtherapeutic on admission, WARFARIN dose adjusted, but >2 4. Acute renal failure - likely secondary to vasomotor nephropathy; improving with ivf 5. Acute metabolic encephalopathy - treat underlying conditions; check Dilantin level 6. Elevated troponin - likely nonspecific in the setting of acute renal failure 7. Seizure disoreder - continue Dilantin, check level 8. HTN - on Clonidine, spironolactone, labetalol, lasix; (BB, diuretic - spironolactone on hold); monitor BP and adjust regimen as needed 9. Fall - CT head with no acute abnormality; X-rays L femur, tibia/fibula with no fracture or dislocation 10. Debility/bedbound status - evaluated by PT and is totally depended with transfers; not a candidate for [facility] facility 11. DVT prophylaxis - anticoagulated with warfarin, INR therapeutic History Interval history: no new issues, mental status slightly better; still running low grade fever Hospitalist Physical - Constitutional Vitals: Temp Pulse Resp BP Pulse Ox 99.0 F 98 H 18 103/64 97 04/13/16 15:45 04/13/16 15:45 04/13/16 15:45 04/13/16 15:45 04/13/16 15:45 General appearance: Present: no acute distress, other (thin, chronically-ill appearing, bedbound) - EENT Eyes: Present: PERRL, EOM intact - Neck Neck: Present: supple, normal ROM. Absent: masses or JVD - Respiratory Respiratory effort: normal Respiratory: bilateral: diminished, negative: rales, rhonchi - Cardiovascular Rhythm: other (tachycardic) Heart Sounds: Present: S1 & S2. Absent: systolic murmur - Extremities Extremities: no ischemia, abnormal (lymphedema, venous stasis) - Abdominal General gastrointestinal: soft, non-tender, non-distended, normal bowel sounds Results - Labs CBC & Chem 7: 04/13/16 08:51 04/13/16 08:51 Labs: Laboratory Last Values WBC 17.0 K/mm3 (4.5-11.0) H 04/13/16 08:51 RBC 3.40 M/mm3 (3.65-5.03) L 04/13/16 08:51 Hgb 10.4 gm/dl (11.8-15.2) L 04/13/16 08:51 Hct 30.0 % (35.5-45.6) L D 04/13/16 08:51 MCV 88 fl (84-94) 04/13/16 08:51 MCH 31 pg (28-32) 04/13/16 08:51 MCHC 35 % (32-34) H 04/13/16 08:51 RDW 14.2 % (13.2-15.2) 04/13/16 08:51 Plt Count 80 K/mm3 (140-440) L 04/13/16 08:51 Add Manual Diff Complete 04/13/16 08:51 Total Counted 100 04/13/16 08:51 Seg Neutrophils % Veterinary Medical Officer 04/13/16 08:51 Seg Neuts % (Manual) 86.0 % (40.0-70.0) H 04/13/16 08:51 Band Neutrophils % 9.0 % 04/13/16 08:51 Lymphocytes % (Manual) 2.0 % (13.4-35.0) L 04/13/16 08:51 Reactive Lymphs % (Man) 0 % 04/13/16 08:51 Monocytes % (Manual) 3.0 % (0.0-7.3) 04/13/16 08:51 Eosinophils % (Manual) 0 % (0.0-4.3) 04/13/16 08:51 Basophils % (Manual) 0 % (0.0-1.8) 04/13/16 08:51 Metamyelocytes % 0 % 04/13/16 08:51 Myelocytes % 0 % 04/13/16 08:51 Promyelocytes % 0 % 04/13/16 08:51 Blast Cells % 0 % 04/13/16 08:51 Nucleated RBC % Not Reportable 04/13/16 08:51 Seg Neutrophils # Man 14.6 K/mm3 (1.8-7.7) H 04/13/16 08:51 Band Neutrophils # 1.5 K/mm3 04/13/16 08:51 Lymphocytes # (Manual) 0.3 K/mm3 (1.2-5.4) L 04/13/16 08:51 Abs React Lymphs (Man) 0.0 K/mm3 04/13/16 08:51 Monocytes # (Manual) 0.5 K/mm3 (0.0-0.8) 04/13/16 08:51 Eosinophils # (Manual) 0.0 K/mm3 (0.0-0.4) 04/13/16 08:51 Basophils # (Manual) 0.0 K/mm3 (0.0-0.1) 04/13/16 08:51 Metamyelocytes # 0.0 K/mm3 04/13/16 08:51 Myelocytes # 0.0 K/mm3 04/13/16 08:51 Promyelocytes # 0.0 K/mm3 04/13/16 08:51 Blast Cells # 0.0 K/mm3 04/13/16 08:51 WBC Morphology Not Reportable 04/13/16 08:51 Hypersegmented Neuts Not Reportable 04/13/16 08:51 Hyposegmented Neuts Not Reportable 04/13/16 08:51 Hypogranular Neuts Not Reportable 04/13/16 08:51 Smudge Cells Not Reportable 04/13/16 08:51 Toxic Granulation Not Reportable 04/13/16 08:51 Toxic Vacuolation Not Reportable 04/13/16 08:51 Dohle Bodies Not Reportable 04/13/16 08:51 Pelger-Huet Anomaly Not Reportable 04/13/16 08:51 Zonia Rods Not Reportable 04/13/16 08:51 Platelet Estimate Appears decreased 04/13/16 08:51 Clumped Platelets Not Reportable 04/13/16 08:51 Plt Clumps, EDTA Not Reportable 04/13/16 08:51 Large Platelets Not Reportable 04/13/16 08:51 Giant Platelets Not Reportable 04/13/16 08:51 Platelet Satelliting Not Reportable 04/13/16 08:51 Plt Morphology Comment Not Reportable 04/13/16 08:51 RBC Morphology Not Reportable 04/13/16 08:51 Dimorphic RBCs Not Reportable 04/13/16 08:51 Polychromasia Not Reportable 04/13/16 08:51 Hypochromasia Not Reportable 04/13/16 08:51 Poikilocytosis Not Reportable 04/13/16 08:51 Anisocytosis Not Reportable 04/13/16 08:51 Microcytosis Not Reportable 04/13/16 08:51 Macrocytosis Not Reportable 04/13/16 08:51 Spherocytes Not Reportable 04/13/16 08:51 Pappenheimer Bodies Not Reportable 04/13/16 08:51 Sickle Cells Not Reportable 04/13/16 08:51 Target Cells Few 04/13/16 08:51 Tear Drop Cells Not Reportable 04/13/16 08:51 Ovalocytes Not Reportable 04/13/16 08:51 Helmet Cells Not Reportable 04/13/16 08:51 [place] Bodies Not Reportable 04/13/16 08:51 [place] Rings Not Reportable 04/13/16 08:51 Susan Cells Not Reportable 04/13/16 08:51 Bite Cells Not Reportable 04/13/16 08:51 Crenated Cell Not Reportable 04/13/16 08:51 Elliptocytes Not Reportable 04/13/16 08:51 Acanthocytes (Spur) Not Reportable 04/13/16 08:51 Rouleaux Not Reportable 04/13/16 08:51 Hemoglobin C Crystals Not Reportable 04/13/16 08:51 Schistocytes Not Reportable 04/13/16 08:51 Malaria parasites Not Reportable 04/13/16 08:51 Wang Bodies Not Reportable 04/13/16 08:51 Hem Pathologist Commnt No 04/13/16 08:51 PT 25.3 Sec. (12.2-14.9) H 04/13/16 08:51 INR 2.29 (0.87-1.13) H 04/13/16 08:51 APTT 38.2 Sec. (24.2-36.6) H 04/11/16 15:32 Sodium 145 mmol/L (137-145) 04/13/16 08:51 Potassium 4.0 mmol/L (3.6-5.0) 04/13/16 08:51 Chloride 105.7 mmol/L (98-107) 04/13/16 08:51 Carbon Dioxide 25 mmol/L (22-30) 04/13/16 08:51 Anion Gap 18 mmol/L 04/13/16 08:51 BUN 28 mg/dL (9-20) H 04/13/16 08:51 Creatinine 1.3 mg/dL (0.8-1.5) 04/13/16 08:51 Estimated GFR > 60 ml/min 04/13/16 08:51 BUN/Creatinine Ratio 21.53 % 04/13/16 08:51 Glucose 111 mg/dL (75-100) H 04/13/16 08:51 POC Glucose 158 (70-105) H 04/11/16 13:05 Lactic Acid 1.9 mmol/L (0.7-2.0) 04/11/16 15:32 Calcium 8.4 mg/dL (8.4-10.2) 04/13/16 08:51 Total Bilirubin 0.5 mg/dL (0.1-1.2) 04/11/16 15:32 Direct Bilirubin < 0.2 mg/dL (0-0.2) 04/11/16 15:32 Indirect Bilirubin 0.3 mg/dL 04/11/16 15:32 AST 74 units/L (5-40) H 04/11/16 15:32 ALT 30 units/L (7-56) 04/11/16 15:32 Alkaline Phosphatase 105 units/L (35-129) 04/11/16 15:32 Troponin T 0.082 ng/mL (0.00-0.029) H 04/11/16 15:32 NT-Pro-B Natriuret Pep 623.6 pg/mL (0-900) 04/11/16 15:32 Total Protein 8.1 g/dL (6.3-8.2) 04/11/16 15:32 Albumin 3.7 g/dL (3.9-5) L 04/11/16 15:32 Albumin/Globulin Ratio 0.8 % 04/11/16 15:32 Triglycerides 78 mg/dL (2-149) 04/11/16 15:32 Cholesterol 135 mg/dL (50-199) 04/11/16 15:32 LDL Cholesterol Direct 52 mg/dL (50-130) 04/11/16 15:32 HDL Cholesterol 68 mg/dL (40-59) H 04/11/16 15:32 Cholesterol/HDL Ratio 1.98 % 04/11/16 15:32 Urine Color Yellow (Yellow) 04/11/16 15:38 Urine Turbidity Clear (Clear) 04/11/16 15:38 Urine pH 6.0 (5.0-7.0) 04/11/16 15:38 Ur Specific [place] 1.019 (1.003-1.030) 04/11/16 15:38 Urine Protein 30 mg/dl mg/dL (Negative) 04/11/16 15:38 Urine Glucose (UA) Neg mg/dL (Negative) 04/11/16 15:38 Urine Ketones Neg mg/dL (Negative) 04/11/16 15:38 Urine Blood Mod (Negative) 04/11/16 15:38 Urine Nitrite Neg (Negative) 04/11/16 15:38 Urine Bilirubin Neg (Negative) 04/11/16 15:38 Urine Urobilinogen < 2.0 mg/dL (<2.0) 04/11/16 15:38 Ur Leukocyte Esterase Neg (Negative) 04/11/16 15:38 Urine WBC (Auto) 3.0 /HPF (0.0-6.0) 04/11/16 15:38 Urine RBC (Auto) 5.0 /HPF (0.0-6.0) 04/11/16 15:38 U Epithel Cells (Auto) < 1.0 /HPF (0-13.0) 04/11/16 15:38 Urine Bacteria (Auto) 1+ /HPF (Negative) 04/11/16 15:38
[2016-04-13] MEDS: VANCOMYCIN VIAL 1,250 MG in NACL 0.9% 250ML 250 ML IV SCH (21:38)
[2016-04-13] MEDS: NORCO 7.5/325 PO PRN (21:38)
[2016-04-13] MEDS: CATAPRES PO SCH (21:38)
[2016-04-14] MEDS: ZOSYN/NS 4.5GM/100ML 4.5 GM/100 ML VIAL IV SCH ×3 (03:39→21:51)
[2016-04-14] MEDS: NORCO 7.5/325 PO PRN ×3 (04:07→22:11)
[2016-04-14 05:32] LABS: Basophils % (Auto) 0.2 % (0.0-1.8); Eosinophils % (Auto) 0.1 % (0.0-4.3); Hematocrit 28.5 % (35.5-45.6); Hemoglobin 9.8 gm/dl (11.8-15.2); Mean Corpuscular HGB Conc 35 % (32-34); Mean Corpuscular Hemoglobin 31 pg (28-32); Mean Corpuscular Volume 89 fl (84-94); Red Blood Count 3.21 M/mm3 (3.65-5.03); Red Cell Distribution Width 14.4 % (13.2-15.2); White Blood Count 16.7 K/mm3 (4.5-11.0)
[2016-04-14 05:38] LABS: Platelet Count 87 K/mm3 (140-440)
[2016-04-14 05:42] LABS: INR 2.39 (0.87-1.13)
[2016-04-14] MEDS: APRESOLINE PO SCH ×3 (05:50→21:52)
[2016-04-14 06:21] LABS: BUN/Creatinine Ratio 19.23; Blood Urea Nitrogen 25 mg/dL (9-20); Calcium 8.4 mg/dL (8.4-10.2); Carbon Dioxide 27 mmol/L (22-30); Chloride 105.7 mmol/L (98-107); Glucose 121 mg/dL (75-100); Potassium 3.5 mmol/L (3.6-5.0); Sodium 145 mmol/L (137-145)
[2016-04-14 06:25] LABS: Anion Gap 16 mmol/L
[2016-04-14] MEDS: ISORDIL TITRADOSE PO SCH ×3 (12:29→22:00)
[2016-04-14] MEDS: FLOMAX PO SCH (12:30)
[2016-04-14] MEDS: DILANTIN PO SCH ×4 (12:30→21:53)
[2016-04-14] MEDS: celeXA PO SCH (12:30)
[2016-04-14] MEDS: LASIX PO SCH ×2 (12:31→21:54)
[2016-04-14] MEDS: NEURONTIN PO SCH ×2 (12:31→21:54)
[2016-04-14] MEDS: THERAGRAN Tab PO SCH (12:31)
[2016-04-14] MEDS: COUMADIN PO SCH (18:05)
--- NOTE | 2016-04-14 18:42 | Progress Note ---
Assessment and Plan Assessment and plan: 1. Sepsis likely secondary to leg cellulitis - started on broad spectrum antibiotics, ivf; WBS still elevated, but trending down 2. Bilateral LE lymphedema and ulcers - local wound care 3. Acute on chronic DVT LLE - INR subtherapeutic on admission, WARFARIN dose adjusted now INR therapeutic 4. Acute renal failure - likely secondary to vasomotor nephropathy; resolved with ivf 5. Acute metabolic encephalopathy - treat underlying conditions; Dilantin level elevated, so will hold it 6. Elevated troponin - likely nonspecific in the setting of acute renal failure 7. Seizure disoreder -hold Dilantin as level elevated 8. HTN - on Clonidine, spironolactone, labetalol, lasix; (BB, diuretic - spironolactone on hold); monitor BP and adjust regimen as needed 9. Fall - CT head with no acute abnormality; X-rays L femur, tibia/fibula with no fracture or dislocation 10. Debility/bedbound status - evaluated by PT and is totally depended with transfers; not a candidate for [facility] 11. DVT prophylaxis - anticoagulated with warfarin, INR therapeutic History Interval history: no complaints today, mental staus likely back to baseline, afebrile Hospitalist Physical - Constitutional Vitals: Temp Pulse Resp BP Pulse Ox 98.8 F 101 H 18 152/95 98 04/14/16 08:00 04/14/16 18:09 04/14/16 08:00 04/14/16 18:09 04/14/16 08:00 General appearance: Present: no acute distress, other ( chronically-ill appearing, bedbound) - EENT Eyes: Present: PERRL, EOM intact - Neck Neck: Present: supple. Absent: enlarged thyroid, masses or JVD - Respiratory Respiratory effort: normal Respiratory: bilateral: CTA, negative: rales, rhonchi, wheezing - Cardiovascular Rhythm: regular Heart Sounds: Present: S1 & S2. Absent: systolic murmur - Extremities Extremities: no ischemia, abnormal (lymphedema, venous stasis, wounds) - Abdominal General gastrointestinal: soft, non-tender, non-distended, normal bowel sounds - Psychiatric Psychiatric: cooperative - Neurologic Neurologic: moves all extremities Results - Labs CBC & Chem 7: 04/14/16 04:59 04/14/16 04:59 Labs: Laboratory Last Values WBC 16.7 K/mm3 (4.5-11.0) H 04/14/16 04:59 RBC 3.21 M/mm3 (3.65-5.03) L 04/14/16 04:59 Hgb 9.8 gm/dl (11.8-15.2) L 04/14/16 04:59 Hct 28.5 % (35.5-45.6) L 04/14/16 04:59 MCV 89 fl (84-94) 04/14/16 04:59 MCH 31 pg (28-32) 04/14/16 04:59 MCHC 35 % (32-34) H 04/14/16 04:59 RDW 14.4 % (13.2-15.2) 04/14/16 04:59 Plt Count 87 K/mm3 (140-440) L 04/14/16 04:59 Lymph % (Auto) 3.6 % (13.4-35.0) L 04/14/16 04:59 [place] % (Auto) 7.3 % (0.0-7.3) 04/14/16 04:59 Eos % (Auto) 0.1 % (0.0-4.3) 04/14/16 04:59 Baso % (Auto) 0.2 % (0.0-1.8) 04/14/16 04:59 Lymph # 0.6 K/mm3 (1.2-5.4) L 04/14/16 04:59 [place] # 1.2 K/mm3 (0.0-0.8) H 04/14/16 04:59 Eos # 0.0 K/mm3 (0.0-0.4) 04/14/16 04:59 Baso # 0.0 K/mm3 (0.0-0.1) 04/14/16 04:59 Add Manual Diff Complete 04/13/16 08:51 Total Counted 100 04/13/16 08:51 Seg Neutrophils % 88.8 % (40.0-70.0) H 04/14/16 04:59 Seg Neuts % (Manual) 86.0 % (40.0-70.0) H 04/13/16 08:51 Band Neutrophils % 9.0 % 04/13/16 08:51 Lymphocytes % (Manual) 2.0 % (13.4-35.0) L 04/13/16 08:51 Reactive Lymphs % (Man) 0 % 04/13/16 08:51 Monocytes % (Manual) 3.0 % (0.0-7.3) 04/13/16 08:51 Eosinophils % (Manual) 0 % (0.0-4.3) 04/13/16 08:51 Basophils % (Manual) 0 % (0.0-1.8) 04/13/16 08:51 Metamyelocytes % 0 % 04/13/16 08:51 Myelocytes % 0 % 04/13/16 08:51 Promyelocytes % 0 % 04/13/16 08:51 Blast Cells % 0 % 04/13/16 08:51 Nucleated RBC % Not Reportable 04/13/16 08:51 Seg Neutrophils # 14.9 K/mm3 (1.8-7.7) H 04/14/16 04:59 Seg Neutrophils # Man 14.6 K/mm3 (1.8-7.7) H 04/13/16 08:51 Band Neutrophils # 1.5 K/mm3 04/13/16 08:51 Lymphocytes # (Manual) 0.3 K/mm3 (1.2-5.4) L 04/13/16 08:51 Abs React Lymphs (Man) 0.0 K/mm3 04/13/16 08:51 Monocytes # (Manual) 0.5 K/mm3 (0.0-0.8) 04/13/16 08:51 Eosinophils # (Manual) 0.0 K/mm3 (0.0-0.4) 04/13/16 08:51 Basophils # (Manual) 0.0 K/mm3 (0.0-0.1) 04/13/16 08:51 Metamyelocytes # 0.0 K/mm3 04/13/16 08:51 Myelocytes # 0.0 K/mm3 04/13/16 08:51 Promyelocytes # 0.0 K/mm3 04/13/16 08:51 Blast Cells # 0.0 K/mm3 04/13/16 08:51 WBC Morphology Not Reportable 04/13/16 08:51 Hypersegmented Neuts Not Reportable 04/13/16 08:51 Hyposegmented Neuts Not Reportable 04/13/16 08:51 Hypogranular Neuts Not Reportable 04/13/16 08:51 Smudge Cells Not Reportable 04/13/16 08:51 Toxic Granulation Not Reportable 04/13/16 08:51 Toxic Vacuolation Not Reportable 04/13/16 08:51 Dohle Bodies Not Reportable 04/13/16 08:51 Pelger-Huet Anomaly Not Reportable 04/13/16 08:51 Zonia Rods Not Reportable 04/13/16 08:51 Platelet Estimate Appears decreased 04/13/16 08:51 Clumped Platelets Not Reportable 04/13/16 08:51 Plt Clumps, EDTA Not Reportable 04/13/16 08:51 Large Platelets Not Reportable 04/13/16 08:51 Giant Platelets Not Reportable 04/13/16 08:51 Platelet Satelliting Not Reportable 04/13/16 08:51 Plt Morphology Comment Not Reportable 04/13/16 08:51 RBC Morphology Not Reportable 04/13/16 08:51 Dimorphic RBCs Not Reportable 04/13/16 08:51 Polychromasia Not Reportable 04/13/16 08:51 Hypochromasia Not Reportable 04/13/16 08:51 Poikilocytosis Not Reportable 04/13/16 08:51 Anisocytosis Not Reportable 04/13/16 08:51 Microcytosis Not Reportable 04/13/16 08:51 Macrocytosis Not Reportable 04/13/16 08:51 Spherocytes Not Reportable 04/13/16 08:51 Pappenheimer Bodies Not Reportable 04/13/16 08:51 Sickle Cells Not Reportable 04/13/16 08:51 Target Cells Few 04/13/16 08:51 Tear Drop Cells Not Reportable 04/13/16 08:51 Ovalocytes Not Reportable 04/13/16 08:51 Helmet Cells Not Reportable 04/13/16 08:51 Crow[place] Bodies Not Reportable 04/13/16 08:51 [place] Rings Not Reportable 04/13/16 08:51 Susan Cells Not Reportable 04/13/16 08:51 Bite Cells Not Reportable 04/13/16 08:51 Crenated Cell Not Reportable 04/13/16 08:51 Elliptocytes Not Reportable 04/13/16 08:51 Acanthocytes (Spur) Not Reportable 04/13/16 08:51 Rouleaux Not Reportable 04/13/16 08:51 Hemoglobin C Crystals Not Reportable 04/13/16 08:51 Schistocytes Not Reportable 04/13/16 08:51 Malaria parasites Not Reportable 04/13/16 08:51 Wang Bodies Not Reportable 04/13/16 08:51 Hem Pathologist Commnt No 04/13/16 08:51 PT 26.2 Sec. (12.2-14.9) H 04/14/16 04:59 INR 2.39 (0.87-1.13) H 04/14/16 04:59 APTT 38.2 Sec. (24.2-36.6) H 04/11/16 15:32 Sodium 145 mmol/L (137-145) 04/14/16 04:59 Potassium 3.5 mmol/L (3.6-5.0) L 04/14/16 04:59 Chloride 105.7 mmol/L (98-107) 04/14/16 04:59 Carbon Dioxide 27 mmol/L (22-30) 04/14/16 04:59 Anion Gap 16 mmol/L 04/14/16 04:59 BUN 25 mg/dL (9-20) H 04/14/16 04:59 Creatinine 1.3 mg/dL (0.8-1.5) 04/14/16 04:59 Estimated GFR > 60 ml/min 04/14/16 04:59 BUN/Creatinine Ratio 19.23 % 04/14/16 04:59 Glucose 121 mg/dL (75-100) H 04/14/16 04:59 POC Glucose 158 (70-105) H 04/11/16 13:05 Lactic Acid 1.9 mmol/L (0.7-2.0) 04/11/16 15:32 Calcium 8.4 mg/dL (8.4-10.2) 04/14/16 04:59 Total Bilirubin 0.5 mg/dL (0.1-1.2) 04/11/16 15:32 Direct Bilirubin < 0.2 mg/dL (0-0.2) 04/11/16 15:32 Indirect Bilirubin 0.3 mg/dL 04/11/16 15:32 AST 74 units/L (5-40) H 04/11/16 15:32 ALT 30 units/L (7-56) 04/11/16 15:32 Alkaline Phosphatase 105 units/L (35-129) 04/11/16 15:32 Troponin T 0.082 ng/mL (0.00-0.029) H 04/11/16 15:32 NT-Pro-B Natriuret Pep 623.6 pg/mL (0-900) 04/11/16 15:32 Total Protein 8.1 g/dL (6.3-8.2) 04/11/16 15:32 Albumin 3.7 g/dL (3.9-5) L 04/11/16 15:32 Albumin/Globulin Ratio 0.8 % 04/11/16 15:32 Triglycerides 78 mg/dL (2-149) 04/11/16 15:32 Cholesterol 135 mg/dL (50-199) 04/11/16 15:32 LDL Cholesterol Direct 52 mg/dL (50-130) 04/11/16 15:32 HDL Cholesterol 68 mg/dL (40-59) H 04/11/16 15:32 Cholesterol/HDL Ratio 1.98 % 04/11/16 15:32 Urine Color Yellow (Yellow) 04/11/16 15:38 Urine Turbidity Clear (Clear) 04/11/16 15:38 Urine pH 6.0 (5.0-7.0) 04/11/16 15:38 Ur Specific [place] 1.019 (1.003-1.030) 04/11/16 15:38 Urine Protein 30 mg/dl mg/dL (Negative) 04/11/16 15:38 Urine Glucose (UA) Neg mg/dL (Negative) 04/11/16 15:38 Urine Ketones Neg mg/dL (Negative) 04/11/16 15:38 Urine Blood Mod (Negative) 04/11/16 15:38 Urine Nitrite Neg (Negative) 04/11/16 15:38 Urine Bilirubin Neg (Negative) 04/11/16 15:38 Urine Urobilinogen < 2.0 mg/dL (<2.0) 04/11/16 15:38 Ur Leukocyte Esterase Neg (Negative) 04/11/16 15:38 Urine WBC (Auto) 3.0 /HPF (0.0-6.0) 04/11/16 15:38 Urine RBC (Auto) 5.0 /HPF (0.0-6.0) 04/11/16 15:38 U Epithel Cells (Auto) < 1.0 /HPF (0-13.0) 04/11/16 15:38 Urine Bacteria (Auto) 1+ /HPF (Negative) 04/11/16 15:38 Phenytoin 22.0 mg/L (10.0-20.0) H 04/14/16 04:59
[2016-04-14] MEDS: CATAPRES PO SCH (21:55)
[2016-04-14] MEDS: VANCOMYCIN VIAL 1,250 MG in NACL 0.9% 250ML 250 ML IV SCH (22:00)
[2016-04-15] MEDS: ZOSYN/NS 4.5GM/100ML 4.5 GM/100 ML VIAL IV SCH ×3 (04:31→20:28)
[2016-04-15 05:20] LABS: INR 2.9 (0.87-1.13)
[2016-04-15] MEDS: APRESOLINE PO SCH ×3 (06:00→21:08)
[2016-04-15] MEDS: NORCO 7.5/325 PO PRN (06:30)
[2016-04-15] MEDS: NEURONTIN PO SCH ×2 (10:25→21:09)
[2016-04-15] MEDS: LASIX PO SCH ×2 (10:25→21:27)
[2016-04-15] MEDS: THERAGRAN Tab PO SCH (10:25)
[2016-04-15] MEDS: DILANTIN PO SCH ×4 (10:25→21:08)
[2016-04-15] MEDS: celeXA PO SCH (10:25)
[2016-04-15] MEDS: FLOMAX PO SCH (10:26)
[2016-04-15] MEDS: ISORDIL TITRADOSE PO SCH ×3 (10:27→21:06)
--- NOTE | 2016-04-15 16:25 | Progress Note ---
Assessment and Plan Assessment and plan: 1. Sepsis secondary to leg cellulitis - started on broad spectrum antibiotics, ivf; WBS still elevated, but trending down 2. Bilateral LE lymphedema and ulcers - local wound care 3. Acute on chronic DVT LLE - INR subtherapeutic on admission, WARFARIN dose adjusted now INR therapeutic 4. Acute renal failure - likely secondary to vasomotor nephropathy; resolved with ivf 5. Acute metabolic encephalopathy - treating underlying conditions; Dilantin level elevated, so on hold now 6. Elevated troponin - likely nonspecific in the setting of acute renal failure 7. Seizure disoreder -hold Dilantin as level elevated; recheck tomorrow 8. HTN - on Clonidine, spironolactone, labetalol, lasix; (BB, diuretic - spironolactone on hold); monitor BP and adjust regimen as needed 9. Fall - CT head with no acute abnormality; X-rays L femur, tibia/fibula with no fracture or dislocation 10. Debility/bedbound status - evaluated by PT and is totally depended with transfers; not a candidate for [facility] facility 11. DVT prophylaxis - anticoagulated with warfarin, INR therapeutic History Interval history: no complaints today, mental status back to baseline, afebrile Hospitalist Physical - Constitutional Vitals: Temp Pulse Resp BP Pulse Ox 99 F 104 H 18 132/77 97 04/15/16 09:00 04/15/16 14:10 04/15/16 09:00 04/15/16 14:10 04/15/16 09:00 General appearance: Present: no acute distress, disheveled, other ( chronically- ill appearing, bedbound) - EENT Eyes: Present: PERRL, EOM intact - Neck Neck: Present: supple. Absent: enlarged thyroid, masses or JVD - Respiratory Respiratory effort: normal Respiratory: bilateral: CTA, negative: rhonchi, wheezing - Cardiovascular Rhythm: regular Heart Sounds: Present: S1 & S2. Absent: systolic murmur - Extremities Extremities: abnormal (lymphedema, chronic venous stasis changes, wounds) - Abdominal General gastrointestinal: soft, non-tender, non-distended, normal bowel sounds Results - Labs CBC & Chem 7: 04/14/16 04:59 04/14/16 04:59 Labs: Laboratory Last Values WBC 16.7 K/mm3 (4.5-11.0) H 04/14/16 04:59 RBC 3.21 M/mm3 (3.65-5.03) L 04/14/16 04:59 Hgb 9.8 gm/dl (11.8-15.2) L 04/14/16 04:59 Hct 28.5 % (35.5-45.6) L 04/14/16 04:59 MCV 89 fl (84-94) 04/14/16 04:59 MCH 31 pg (28-32) 04/14/16 04:59 MCHC 35 % (32-34) H 04/14/16 04:59 RDW 14.4 % (13.2-15.2) 04/14/16 04:59 Plt Count 87 K/mm3 (140-440) L 04/14/16 04:59 Lymph % (Auto) 3.6 % (13.4-35.0) L 04/14/16 04:59 [place] % (Auto) 7.3 % (0.0-7.3) 04/14/16 04:59 Eos % (Auto) 0.1 % (0.0-4.3) 04/14/16 04:59 Baso % (Auto) 0.2 % (0.0-1.8) 04/14/16 04:59 Lymph # 0.6 K/mm3 (1.2-5.4) L 04/14/16 04:59 [place] # 1.2 K/mm3 (0.0-0.8) H 04/14/16 04:59 Eos # 0.0 K/mm3 (0.0-0.4) 04/14/16 04:59 Baso # 0.0 K/mm3 (0.0-0.1) 04/14/16 04:59 Add Manual Diff Complete 04/13/16 08:51 Total Counted 100 04/13/16 08:51 Seg Neutrophils % 88.8 % (40.0-70.0) H 04/14/16 04:59 Seg Neuts % (Manual) 86.0 % (40.0-70.0) H 04/13/16 08:51 Band Neutrophils % 9.0 % 04/13/16 08:51 Lymphocytes % (Manual) 2.0 % (13.4-35.0) L 04/13/16 08:51 Reactive Lymphs % (Man) 0 % 04/13/16 08:51 Monocytes % (Manual) 3.0 % (0.0-7.3) 04/13/16 08:51 Eosinophils % (Manual) 0 % (0.0-4.3) 04/13/16 08:51 Basophils % (Manual) 0 % (0.0-1.8) 04/13/16 08:51 Metamyelocytes % 0 % 04/13/16 08:51 Myelocytes % 0 % 04/13/16 08:51 Promyelocytes % 0 % 04/13/16 08:51 Blast Cells % 0 % 04/13/16 08:51 Nucleated RBC % Not Reportable 04/13/16 08:51 Seg Neutrophils # 14.9 K/mm3 (1.8-7.7) H 04/14/16 04:59 Seg Neutrophils # Man 14.6 K/mm3 (1.8-7.7) H 04/13/16 08:51 Band Neutrophils # 1.5 K/mm3 04/13/16 08:51 Lymphocytes # (Manual) 0.3 K/mm3 (1.2-5.4) L 04/13/16 08:51 Abs React Lymphs (Man) 0.0 K/mm3 04/13/16 08:51 Monocytes # (Manual) 0.5 K/mm3 (0.0-0.8) 04/13/16 08:51 Eosinophils # (Manual) 0.0 K/mm3 (0.0-0.4) 04/13/16 08:51 Basophils # (Manual) 0.0 K/mm3 (0.0-0.1) 04/13/16 08:51 Metamyelocytes # 0.0 K/mm3 04/13/16 08:51 Myelocytes # 0.0 K/mm3 04/13/16 08:51 Promyelocytes # 0.0 K/mm3 04/13/16 08:51 Blast Cells # 0.0 K/mm3 04/13/16 08:51 WBC Morphology Not Reportable 04/13/16 08:51 Hypersegmented Neuts Not Reportable 04/13/16 08:51 Hyposegmented Neuts Not Reportable 04/13/16 08:51 Hypogranular Neuts Not Reportable 04/13/16 08:51 Smudge Cells Not Reportable 04/13/16 08:51 Toxic Granulation Not Reportable 04/13/16 08:51 Toxic Vacuolation Not Reportable 04/13/16 08:51 Dohle Bodies Not Reportable 04/13/16 08:51 Pelger-Huet Anomaly Not Reportable 04/13/16 08:51 Zonia Rods Not Reportable 04/13/16 08:51 Platelet Estimate Appears decreased 04/13/16 08:51 Clumped Platelets Not Reportable 04/13/16 08:51 Plt Clumps, EDTA Not Reportable 04/13/16 08:51 Large Platelets Not Reportable 04/13/16 08:51 Giant Platelets Not Reportable 04/13/16 08:51 Platelet Satelliting Not Reportable 04/13/16 08:51 Plt Morphology Comment Not Reportable 04/13/16 08:51 RBC Morphology Not Reportable 04/13/16 08:51 Dimorphic RBCs Not Reportable 04/13/16 08:51 Polychromasia Not Reportable 04/13/16 08:51 Hypochromasia Not Reportable 04/13/16 08:51 Poikilocytosis Not Reportable 04/13/16 08:51 Anisocytosis Not Reportable 04/13/16 08:51 Microcytosis Not Reportable 04/13/16 08:51 Macrocytosis Not Reportable 04/13/16 08:51 Spherocytes Not Reportable 04/13/16 08:51 Pappenheimer Bodies Not Reportable 04/13/16 08:51 Sickle Cells Not Reportable 04/13/16 08:51 Target Cells Few 04/13/16 08:51 Tear Drop Cells Not Reportable 04/13/16 08:51 Ovalocytes Not Reportable 04/13/16 08:51 Helmet Cells Not Reportable 04/13/16 08:[address] [place] Bodies Not Reportable 04/13/16 08:51 [place] Rings Not Reportable 04/13/16 08:51 [place] Cells Not Reportable 04/13/16 08:51 Bite Cells Not Reportable 04/13/16 08:51 Crenated Cell Not Reportable 04/13/16 08:51 Elliptocytes Not Reportable 04/13/16 08:51 Acanthocytes (Spur) Not Reportable 04/13/16 08:51 Rouleaux Not Reportable 04/13/16 08:51 Hemoglobin C Crystals Not Reportable 04/13/16 08:51 Schistocytes Not Reportable 04/13/16 08:51 Malaria parasites Not Reportable 04/13/16 08:51 Wang Bodies Not Reportable 04/13/16 08:51 Hem Pathologist Commnt No 04/13/16 08:51 PT 30.5 Sec. (12.2-14.9) H 04/15/16 04:45 INR 2.90 (0.87-1.13) H 04/15/16 04:45 APTT 38.2 Sec. (24.2-36.6) H 04/11/16 15:32 Sodium 145 mmol/L (137-145) 04/14/16 04:59 Potassium 3.5 mmol/L (3.6-5.0) L 04/14/16 04:59 Chloride 105.7 mmol/L (98-107) 04/14/16 04:59 Carbon Dioxide 27 mmol/L (22-30) 04/14/16 04:59 Anion Gap 16 mmol/L 04/14/16 04:59 BUN 25 mg/dL (9-20) H 04/14/16 04:59 Creatinine 1.3 mg/dL (0.8-1.5) 04/14/16 04:59 Estimated GFR > 60 ml/min 04/14/16 04:59 BUN/Creatinine Ratio 19.23 % 04/14/16 04:59 Glucose 121 mg/dL (75-100) H 04/14/16 04:59 POC Glucose 158 (70-105) H 04/11/16 13:05 Lactic Acid 1.9 mmol/L (0.7-2.0) 04/11/16 15:32 Calcium 8.4 mg/dL (8.4-10.2) 04/14/16 04:59 Total Bilirubin 0.5 mg/dL (0.1-1.2) 04/11/16 15:32 Direct Bilirubin < 0.2 mg/dL (0-0.2) 04/11/16 15:32 Indirect Bilirubin 0.3 mg/dL 04/11/16 15:32 AST 74 units/L (5-40) H 04/11/16 15:32 ALT 30 units/L (7-56) 04/11/16 15:32 Alkaline Phosphatase 105 units/L (35-129) 04/11/16 15:32 Troponin T 0.082 ng/mL (0.00-0.029) H 04/11/16 15:32 NT-Pro-B Natriuret Pep 623.6 pg/mL (0-900) 04/11/16 15:32 Total Protein 8.1 g/dL (6.3-8.2) 04/11/16 15:32 Albumin 3.7 g/dL (3.9-5) L 04/11/16 15:32 Albumin/Globulin Ratio 0.8 % 04/11/16 15:32 Triglycerides 78 mg/dL (2-149) 04/11/16 15:32 Cholesterol 135 mg/dL (50-199) 04/11/16 15:32 LDL Cholesterol Direct 52 mg/dL (50-130) 04/11/16 15:32 HDL Cholesterol 68 mg/dL (40-59) H 04/11/16 15:32 Cholesterol/HDL Ratio 1.98 % 04/11/16 15:32 Urine Color Yellow (Yellow) 04/11/16 15:38 Urine Turbidity Clear (Clear) 04/11/16 15:38 Urine pH 6.0 (5.0-7.0) 04/11/16 15:38 Ur Specific [place] 1.019 (1.003-1.030) 04/11/16 15:38 Urine Protein 30 mg/dl mg/dL (Negative) 04/11/16 15:38 Urine Glucose (UA) Neg mg/dL (Negative) 04/11/16 15:38 Urine Ketones Neg mg/dL (Negative) 04/11/16 15:38 Urine Blood Mod (Negative) 04/11/16 15:38 Urine Nitrite Neg (Negative) 04/11/16 15:38 Urine Bilirubin Neg (Negative) 04/11/16 15:38 Urine Urobilinogen < 2.0 mg/dL (<2.0) 04/11/16 15:38 Ur Leukocyte Esterase Neg (Negative) 04/11/16 15:38 Urine WBC (Auto) 3.0 /HPF (0.0-6.0) 04/11/16 15:38 Urine RBC (Auto) 5.0 /HPF (0.0-6.0) 04/11/16 15:38 U Epithel Cells (Auto) < 1.0 /HPF (0-13.0) 04/11/16 15:38 Urine Bacteria (Auto) 1+ /HPF (Negative) 04/11/16 15:38 Phenytoin 22.0 mg/L (10.0-20.0) H 04/14/16 04:59
[2016-04-15] MEDS ORDERED: COUMADIN PO SCH (17:00)
[2016-04-15] MEDS: VANCOMYCIN VIAL 1,250 MG in NACL 0.9% 250ML 250 ML IV SCH (20:33)
[2016-04-15] MEDS: CATAPRES PO SCH (21:07)
[2016-04-16] MEDS: ZOSYN/NS 4.5GM/100ML 4.5 GM/100 ML VIAL IV SCH ×3 (04:49→21:40)
[2016-04-16 05:46] LABS: Basophils % (Auto) 0.1 % (0.0-1.8); Eosinophils % (Auto) 0.5 % (0.0-4.3); Hematocrit 32.5 % (35.5-45.6); Mean Corpuscular HGB Conc 34 % (32-34); Mean Corpuscular Hemoglobin 30 pg (28-32); Mean Corpuscular Volume 89 fl (84-94); Platelet Count 122 K/mm3 (140-440); Red Blood Count 3.65 M/mm3 (3.65-5.03)
[2016-04-16] MEDS: APRESOLINE PO SCH ×3 (05:53→22:30)
[2016-04-16 05:54] LABS: INR 3.3 (0.87-1.13)
[2016-04-16] MEDS: FLOMAX PO SCH (10:59)
[2016-04-16] MEDS: DILANTIN PO SCH ×4 (10:59→22:34)
[2016-04-16] MEDS: LASIX PO SCH ×2 (10:59→22:35)
[2016-04-16] MEDS: NEURONTIN PO SCH ×2 (11:00→22:32)
[2016-04-16] MEDS: celeXA PO SCH (11:00)
[2016-04-16] MEDS: THERAGRAN Tab PO SCH (11:00)
[2016-04-16] MEDS: ISORDIL TITRADOSE PO SCH ×3 (11:01→22:43)
--- NOTE | 2016-04-16 17:42 | Progress Note ---
Assessment and Plan Assessment and plan: 1. Sepsis secondary to leg cellulitis - started on broad spectrum antibiotics, ivf; WBS still elevated, but trending down 2. Bilateral LE lymphedema and ulcers - local wound care 3. Acute on chronic DVT LLE - INR subtherapeutic on admission, WARFARIN dose adjusted now INR therapeutic 4. Acute renal failure - likely secondary to vasomotor nephropathy; resolved with ivf 5. Acute metabolic encephalopathy - treating underlying conditions; Dilantin level elevated, so on hold now; recheck level in am 6. Elevated troponin - likely nonspecific in the setting of acute renal failure 7. Seizure disoreder -hold Dilantin as level elevated; recheck tomorrow 8. HTN - on Clonidine, spironolactone, labetalol, lasix; (BB, diuretic - spironolactone on hold); monitor BP and adjust regimen as needed 9. Fall - CT head with no acute abnormality; X-rays L femur, tibia/fibula with no fracture or dislocation 10. Debility/bedbound status - evaluated by PT and is totally depended with transfers; not a candidate for senior care facility 11. DVT prophylaxis - anticoagulated with warfarin, INR therapeutic 12. Discharge planning - return to [facility] when medically stable History Interval history: no new issues, afebrile, mental status at baseline Hospitalist Physical - Constitutional Vitals: Temp Pulse Resp BP Pulse Ox 99.7 F H 99 H 18 149/87 96 04/16/16 16:17 04/16/16 16:17 04/16/16 16:17 04/16/16 16:17 04/16/16 08:00 General appearance: Present: no acute distress, disheveled, other ( chronically- ill appearing, bedbound) - EENT Eyes: Present: PERRL, EOM intact - Neck Neck: Present: supple, normal ROM. Absent: masses or JVD - Respiratory Respiratory effort: normal Respiratory: bilateral: diminished, negative: rhonchi, wheezing - Cardiovascular Rhythm: regular Heart Sounds: Present: S1 & S2. Absent: systolic murmur - Extremities Extremities: no ischemia, abnormal (lymphedema, chronic venous status changes, wounds) - Abdominal General gastrointestinal: soft, non-tender, non-distended, normal bowel sounds - Neurologic Neurologic: moves all extremities Results - Labs CBC & Chem 7: 04/16/16 05:15 04/14/16 04:59 Labs: Laboratory Last Values WBC 12.0 K/mm3 (4.5-11.0) H 04/16/16 05:15 RBC 3.65 M/mm3 (3.65-5.03) 04/16/16 05:15 Hgb 11.0 gm/dl (11.8-15.2) L 04/16/16 05:15 Hct 32.5 % (35.5-45.6) L 04/16/16 05:15 MCV 89 fl (84-94) 04/16/16 05:15 MCH 30 pg (28-32) 04/16/16 05:15 MCHC 34 % (32-34) 04/16/16 05:15 RDW 14.0 % (13.2-15.2) 04/16/16 05:15 Plt Count 122 K/mm3 (140-440) L 04/16/16 05:15 Lymph % (Auto) 7.2 % (13.4-35.0) L 04/16/16 05:15 [place] % (Auto) 7.6 % (0.0-7.3) H 04/16/16 05:15 Eos % (Auto) 0.5 % (0.0-4.3) 04/16/16 05:15 Baso % (Auto) 0.1 % (0.0-1.8) 04/16/16 05:15 Lymph # 0.9 K/mm3 (1.2-5.4) L 04/16/16 05:15 [place] # 0.9 K/mm3 (0.0-0.8) H 04/16/16 05:15 Eos # 0.1 K/mm3 (0.0-0.4) 04/16/16 05:15 Baso # 0.0 K/mm3 (0.0-0.1) 04/16/16 05:15 Add Manual Diff Complete 04/13/16 08:51 Total Counted 100 04/13/16 08:51 Seg Neutrophils % 84.6 % (40.0-70.0) H 04/16/16 05:15 Seg Neuts % (Manual) 86.0 % (40.0-70.0) H 04/13/16 08:51 Band Neutrophils % 9.0 % 04/13/16 08:51 Lymphocytes % (Manual) 2.0 % (13.4-35.0) L 04/13/16 08:51 Reactive Lymphs % (Man) 0 % 04/13/16 08:51 Monocytes % (Manual) 3.0 % (0.0-7.3) 04/13/16 08:51 Eosinophils % (Manual) 0 % (0.0-4.3) 04/13/16 08:51 Basophils % (Manual) 0 % (0.0-1.8) 04/13/16 08:51 Metamyelocytes % 0 % 04/13/16 08:51 Myelocytes % 0 % 04/13/16 08:51 Promyelocytes % 0 % 04/13/16 08:51 Blast Cells % 0 % 04/13/16 08:51 Nucleated RBC % Not Reportable 04/13/16 08:51 Seg Neutrophils # 10.2 K/mm3 (1.8-7.7) H 04/16/16 05:15 Seg Neutrophils # Man 14.6 K/mm3 (1.8-7.7) H 04/13/16 08:51 Band Neutrophils # 1.5 K/mm3 04/13/16 08:51 Lymphocytes # (Manual) 0.3 K/mm3 (1.2-5.4) L 04/13/16 08:51 Abs React Lymphs (Man) 0.0 K/mm3 04/13/16 08:51 Monocytes # (Manual) 0.5 K/mm3 (0.0-0.8) 04/13/16 08:51 Eosinophils # (Manual) 0.0 K/mm3 (0.0-0.4) 04/13/16 08:51 Basophils # (Manual) 0.0 K/mm3 (0.0-0.1) 04/13/16 08:51 Metamyelocytes # 0.0 K/mm3 04/13/16 08:51 Myelocytes # 0.0 K/mm3 04/13/16 08:51 Promyelocytes # 0.0 K/mm3 04/13/16 08:51 Blast Cells # 0.0 K/mm3 04/13/16 08:51 WBC Morphology Not Reportable 04/13/16 08:51 Hypersegmented Neuts Not Reportable 04/13/16 08:51 Hyposegmented Neuts Not Reportable 04/13/16 08:51 Hypogranular Neuts Not Reportable 04/13/16 08:51 Smudge Cells Not Reportable 04/13/16 08:51 Toxic Granulation Not Reportable 04/13/16 08:51 Toxic Vacuolation Not Reportable 04/13/16 08:51 Dohle Bodies Not Reportable 04/13/16 08:51 Pelger-Huet Anomaly Not Reportable 04/13/16 08:51 Zonia Rods Not Reportable 04/13/16 08:51 Platelet Estimate Appears decreased 04/13/16 08:51 Clumped Platelets Not Reportable 04/13/16 08:51 Plt Clumps, EDTA Not Reportable 04/13/16 08:51 Large Platelets Not Reportable 04/13/16 08:51 Giant Platelets Not Reportable 04/13/16 08:51 Platelet Satelliting Not Reportable 04/13/16 08:51 Plt Morphology Comment Not Reportable 04/13/16 08:51 RBC Morphology Not Reportable 04/13/16 08:51 Dimorphic RBCs Not Reportable 04/13/16 08:51 Polychromasia Not Reportable 04/13/16 08:51 Hypochromasia Not Reportable 04/13/16 08:51 Poikilocytosis Not Reportable 04/13/16 08:51 Anisocytosis Not Reportable 04/13/16 08:51 Microcytosis Not Reportable 04/13/16 08:51 Macrocytosis Not Reportable 04/13/16 08:51 Spherocytes Not Reportable 04/13/16 08:51 Pappenheimer Bodies Not Reportable 04/13/16 08:51 Sickle Cells Not Reportable 04/13/16 08:51 Target Cells Few 04/13/16 08:51 Tear Drop Cells Not Reportable 04/13/16 08:51 Ovalocytes Not Reportable 04/13/16 08:51 Helmet Cells Not Reportable 04/13/16 08:51 Crowell-[place] Bodies Not Reportable 04/13/16 08:51 [place] Rings Not Reportable 04/13/16 08:51 [place] Cells Not Reportable 04/13/16 08:51 Bite Cells Not Reportable 04/13/16 08:51 Crenated Cell Not Reportable 04/13/16 08:51 Elliptocytes Not Reportable 04/13/16 08:51 Acanthocytes (Spur) Not Reportable 04/13/16 08:51 Rouleaux Not Reportable 04/13/16 08:51 Hemoglobin C Crystals Not Reportable 04/13/16 08:51 Schistocytes Not Reportable 04/13/16 08:51 Malaria parasites Not Reportable 04/13/16 08:51 Wang Bodies Not Reportable 04/13/16 08:51 Hem Pathologist Commnt No 04/13/16 08:51 PT 33.8 Sec. (12.2-14.9) H 04/16/16 05:15 INR 3.30 (0.87-1.13) H 04/16/16 05:15 APTT 38.2 Sec. (24.2-36.6) H 04/11/16 15:32 Sodium 145 mmol/L (137-145) 04/14/16 04:59 Potassium 3.5 mmol/L (3.6-5.0) L 04/14/16 04:59 Chloride 105.7 mmol/L (98-107) 04/14/16 04:59 Carbon Dioxide 27 mmol/L (22-30) 04/14/16 04:59 Anion Gap 16 mmol/L 04/14/16 04:59 BUN 25 mg/dL (9-20) H 04/14/16 04:59 Creatinine 1.3 mg/dL (0.8-1.5) 04/14/16 04:59 Estimated GFR > 60 ml/min 04/14/16 04:59 BUN/Creatinine Ratio 19.23 % 04/14/16 04:59 Glucose 121 mg/dL (75-100) H 04/14/16 04:59 POC Glucose 158 (70-105) H 04/11/16 13:05 Lactic Acid 1.9 mmol/L (0.7-2.0) 04/11/16 15:32 Calcium 8.4 mg/dL (8.4-10.2) 04/14/16 04:59 Total Bilirubin 0.5 mg/dL (0.1-1.2) 04/11/16 15:32 Direct Bilirubin < 0.2 mg/dL (0-0.2) 04/11/16 15:32 Indirect Bilirubin 0.3 mg/dL 04/11/16 15:32 AST 74 units/L (5-40) H 04/11/16 15:32 ALT 30 units/L (7-56) 04/11/16 15:32 Alkaline Phosphatase 105 units/L (35-129) 04/11/16 15:32 Troponin T 0.082 ng/mL (0.00-0.029) H 04/11/16 15:32 NT-Pro-B Natriuret Pep 623.6 pg/mL (0-900) 04/11/16 15:32 Total Protein 8.1 g/dL (6.3-8.2) 04/11/16 15:32 Albumin 3.7 g/dL (3.9-5) L 04/11/16 15:32 Albumin/Globulin Ratio 0.8 % 04/11/16 15:32 Triglycerides 78 mg/dL (2-149) 04/11/16 15:32 Cholesterol 135 mg/dL (50-199) 04/11/16 15:32 LDL Cholesterol Direct 52 mg/dL (50-130) 04/11/16 15:32 HDL Cholesterol 68 mg/dL (40-59) H 04/11/16 15:32 Cholesterol/HDL Ratio 1.98 % 04/11/16 15:32 Urine Color Yellow (Yellow) 04/11/16 15:38 Urine Turbidity Clear (Clear) 04/11/16 15:38 Urine pH 6.0 (5.0-7.0) 04/11/16 15:38 Ur Specific [place] 1.019 (1.003-1.030) 04/11/16 15:38 Urine Protein 30 mg/dl mg/dL (Negative) 04/11/16 15:38 Urine Glucose (UA) Neg mg/dL (Negative) 04/11/16 15:38 Urine Ketones Neg mg/dL (Negative) 04/11/16 15:38 Urine Blood Mod (Negative) 04/11/16 15:38 Urine Nitrite Neg (Negative) 04/11/16 15:38 Urine Bilirubin Neg (Negative) 04/11/16 15:38 Urine Urobilinogen < 2.0 mg/dL (<2.0) 04/11/16 15:38 Ur Leukocyte Esterase Neg (Negative) 04/11/16 15:38 Urine WBC (Auto) 3.0 /HPF (0.0-6.0) 04/11/16 15:38 Urine RBC (Auto) 5.0 /HPF (0.0-6.0) 04/11/16 15:38 U Epithel Cells (Auto) < 1.0 /HPF (0-13.0) 04/11/16 15:38 Urine Bacteria (Auto) 1+ /HPF (Negative) 04/11/16 15:38 Vancomycin Trough 7.6 ug/mL (5.0-20.0) 04/15/16 19:24 Phenytoin 16.7 mg/L (10.0-20.0) 04/16/16 05:15
[2016-04-16] MEDS: VANCOMYCIN VIAL 1,250 MG in NACL 0.9% 250ML 250 ML IV SCH (21:00)
[2016-04-16] MEDS: CATAPRES PO SCH (22:33)
[2016-04-17] MEDS: ZOSYN/NS 4.5GM/100ML 4.5 GM/100 ML VIAL IV SCH ×2 (05:00→19:58)
[2016-04-17 05:57] LABS: Basophils % (Auto) 0.9 % (0.0-1.8); Eosinophils % (Auto) 0.6 % (0.0-4.3); Hematocrit 32.2 % (35.5-45.6); Mean Corpuscular HGB Conc 34 % (32-34); Mean Corpuscular Hemoglobin 30 pg (28-32); Mean Corpuscular Volume 88 fl (84-94); Platelet Count 153 K/mm3 (140-440); Red Blood Count 3.64 M/mm3 (3.65-5.03); Red Cell Distribution Width 14.3 % (13.2-15.2); White Blood Count 11.5 K/mm3 (4.5-11.0)
[2016-04-17 06:07] LABS: INR 3.94 (0.87-1.13)
[2016-04-17 06:12] LABS: Anion Gap 15 mmol/L; BUN/Creatinine Ratio 19.09; Blood Urea Nitrogen 21 mg/dL (9-20); Calcium 8.5 mg/dL (8.4-10.2); Carbon Dioxide 28 mmol/L (22-30); Chloride 101.3 mmol/L (98-107); Glucose 108 mg/dL (75-100); Potassium 3.5 mmol/L (3.6-5.0); Sodium 141 mmol/L (137-145)
[2016-04-17] MEDS: APRESOLINE PO SCH ×2 (11:03→14:18)
[2016-04-17] MEDS: DILANTIN PO SCH ×2 (11:04→14:19)
[2016-04-17] MEDS: ISORDIL TITRADOSE PO SCH ×2 (11:05→14:19)
[2016-04-17] MEDS: celeXA PO SCH (11:05)
[2016-04-17] MEDS: NEURONTIN PO SCH (11:05)
[2016-04-17] MEDS: THERAGRAN Tab PO SCH (11:06)
[2016-04-17] MEDS: FLOMAX PO SCH (11:06)
[2016-04-17] MEDS: LASIX PO SCH (11:07)
--- NOTE | 2016-04-17 12:09 | Discharge Summary ---
Providers - Providers Date of Admission: 04/11/16 19:33 Date of discharge: 04/17/16 Attending physician: SUNITA MOREJON Primary care physician: [facility] Hospitalization Reason for admission: dvt, cellulitis Condition: Stable Hospital course: Patient is a 61-year-old man from group home with a history of functional quadriplegia, depression, Leg lymphedema, chronic venous stasis Leg ulcers, BPH , leg DVT on warfarin, seizure disorder and hypertension who presented with falling out of the bed causing laceration to his left upper forehead followed by confusion. He was found to be febrile in emergency department. 04/11/16 Venous leg Doppler shows CHRONIC DVT NOTED IN [facility], ACUTE DVT NOTED IN [facility]. pCxr: normal. The patient was anticoagulated for 5 days doing hospitalization and found to have therapeutic Coumadin on discharge. CT scan of the head and x-rays of the femur, tibia/fibula were negative. Patient was also noted to have acute renal failure which is felt to be secondary to vasomotor nephropathy which resolved with IV fluids. The patient also had cellulitis of the left lower extremity that was treated with antibiotics. Patient also has some confusion attributed to acute toxic metabolic encephalopathy likely related to Dilantin toxicity and cellulitis. Dilantin was held and the Dilantin dose will be adjusted prior to discharge. Patient is to have a follow-up Dilantin level at the nursing facility. Patient was maintained on blood pressure medications for hypertension. Patient also was noted to have debility/bedbound status which was evaluated by PT. Patient was felt to receive maximal hospital benefit and will be discharged back to [facility]. Patient was felt to receive maximal hospital benefit and will be discharged. Dedicated discharge time 35 minutes. Disposition: [facility] Time spent for discharge: 35 - Discharge Diagnoses (1) Acute deep vein thrombosis of left lower extremity Status: Acute Qualifiers: Affected thrombotic vein of extremity: femoral Qualified Code(s): I82.412 - Acute embolism and thrombosis of left femoral vein (2) Infected stasis ulcer of left lower extremity Status: Acute (3) Peripheral vascular disease of lower extremity Status: Acute (4) Scalp laceration Status: Acute Qualifiers: Encounter type: initial encounter Qualified Code(s): S01.01XA - Laceration without foreign body of scalp, initial encounter Core Measure Documentation - Palliative Care Palliative Care/ Comfort Measures: Not Applicable - Core Measures Any of the following diagnoses?: DVT/PE - VTE Discharge Requirements Deep Vein Thrombosis/Pulmonary Embolism Present on Admission: Yes Has pt received <5 days of overlap therapy or INR<2.0: No Anticoagulant overlap therapy prescribed at discharge: No Contraindication No Overlap Therapy order at DC: Not Indicated Exam - Constitutional Vitals: Temp Pulse Resp BP Pulse Ox 99.2 F 96 H 18 138/83 96 04/17/16 08:00 04/17/16 08:00 04/17/16 08:00 04/17/16 08:00 04/17/16 08:00 General appearance: Present: no acute distress, well-nourished - EENT Eyes: Present: PERRL ENT: hearing intact, clear oral mucosa - Neck Neck: Present: supple, normal ROM - Respiratory Respiratory effort: normal Respiratory: bilateral: CTA - Cardiovascular Heart Sounds: Present: S1 & S2. Absent: rub, click - Extremities Extremities: pulses symmetrical, No edema Extremity abnormal: edema (left lymphedema) Peripheral Pulses: within normal limits - Abdominal General gastrointestinal: Present: soft, non-tender, non-distended, normal bowel sounds Male genitourinary: Present: normal - Integumentary Integumentary: Present: clear, warm, dry - Musculoskeletal Musculoskeletal: gait normal, strength equal bilaterally - Psychiatric Psychiatric: appropriate mood/affect, intact judgment & insight - Neurologic Neurologic: CNII-XII intact, moves all extremities Plan Activity: advance as tolerated Weight Bearing Status: Non-Weight Bearing Follow up with: PRIMARY CAREMD [Primary Care Provider] - 3-5 Days Forms: Warfarin Discharge Instruction
[2016-04-17] MEDS ORDERED: VANCOMYCIN VIAL 1,250 MG in NACL 0.9% 250ML 250 ML IV SCH (14:00)
[2016-04-17 16:27] VITALS: BP 130/82
[2016-04-17] MEDS ORDERED: COUMADIN NO DOSE TODAY PO ONE (17:00)
== END 2016-04-17 18:41 | DRG 871 ==
LOC: ED 12:55 → 3A 19:33
PROVIDERS: ADMIT Internal Medicine; ATTEND Hospitalist
DX: A41.9 Sepsis, unspecified organism (principal); G93.41 Metabolic encephalopathy; N17.0 Acute kidney failure with tubular necrosis; R53.2 Functional quadriplegia; L03.116 Cellulitis of left lower limb; I82.512 Chronic embolism and thrombosis of left femoral vein; I82.432 Acute embolism and thrombosis of left popliteal vein; L97.829 Non-pressure chronic ulcer of other part of left lower leg with unspecified severity; I10 Essential (primary) hypertension; F32.9 Major depressive disorder, single episode, unspecified; I87.8 Other specified disorders of veins; N40.0 Benign prostatic hyperplasia without lower urinary tract symptoms; G40.909 Epilepsy, unspecified, not intractable, without status epilepticus; S09.8XXA Other specified injuries of head, initial encounter; W18.39XA Other fall on same level, initial encounter; I89.0 Lymphedema, not elsewhere classified; I73.9 Peripheral vascular disease, unspecified; S01.01XA Laceration without foreign body of scalp, initial encounter; Z86.73 Personal history of transient ischemic attack (TIA), and cerebral infarction without residual deficits; Y93.89 Activity, other specified; Y92.89 Other specified places as the place of occurrence of the external cause; Y99.8 Other external cause status
CPT/HCPCS: 36415; 70450; 71010; 80048; 80061; 80074; 80185; 80202; 81001; 82140; 82962; 83880; 84484; 85007; 85025; 85610; 85730; 87040; 87086; 90471; 90714; 93005; 93010; 96365; 96366; 96367; J0696; J1644; J2543; J3370; J7030; J7050

== ENCOUNTER 2017-04-07 18:49 | Emergency (ER) | payer MEDICARE ==
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
[2017-04-07 20:44] LABS: Bilirubin,Urine NEG (Negative); Blood,Urine MOD (Negative); Color,Urine Yellow (Yellow); Mucus,Urine FEW /HPF; Nitrite,Urine NEG (Negative)
[2017-04-07 20:47] LABS: Amphetamine Screen,Urine PRESUMPTIVE NEGATIVE; Benzodiazepines Screen,Urine PRESUMPTIVE NEGATIVE; Cannabinoid Screen,Urine PRESUMPTIVE NEGATIVE; Cocaine Screen,Urine PRESUMPTIVE NEGATIVE; Methadone Screen,Urine PRESUMPTIVE NEGATIVE; Opiate Screen,Urine PRESUMPTIVE NEGATIVE
[2017-04-07 20:49] LABS: Basophils % (Auto) 0.2 % (0.0-1.8); Eosinophils % (Auto) 0.2 % (0.0-4.3); Hematocrit 33.1 % (35.5-45.6); Hemoglobin 11.6 gm/dl (11.8-15.2); Lymphocytes # (Auto) 0.5 K/mm3 (1.2-5.4); Lymphocytes % (Auto) 7.2 % (13.4-35.0); Mean Corpuscular HGB Conc 35 % (32-34); Mean Corpuscular Hemoglobin 32 pg (28-32); Mean Corpuscular Volume 90 fl (84-94); Monocytes # (Auto) 0.8 K/mm3 (0.0-0.8); Monocytes % (Auto) 10.8 % (0.0-7.3); Platelet Count 137 K/mm3 (140-440); Red Blood Count 3.67 M/mm3 (3.65-5.03); Red Cell Distribution Width 13.9 % (13.2-15.2)
[2017-04-07 21:06] LABS: Alanine Aminotransferase 25 units/L (7-56); Albumin 2.8 g/dL (3.9-5); BUN/Creatinine Ratio 21; Blood Urea Nitrogen 25 mg/dL (9-20); Calcium 8.2 mg/dL (8.4-10.2); Hemolysis Index 0
[2017-04-07] MEDS ORDERED: MORPHINE IM ONE (23:50)
[2017-04-07] MEDS ORDERED: ZOFRAN IM ONE (23:50)
[2017-04-07] MEDS ORDERED: MORPHINE ONE (23:57)
[2017-04-07] MEDS ORDERED: ZOFRAN ONE (23:57)
[2017-04-08 03:29] VITALS: BP 137/79
== END 2017-04-08 04:25 | disposition home or self-care (01) ==
LOC: ED 18:49
DX: R46.89 Other symptoms and signs involving appearance and behavior (principal); I10 Essential (primary) hypertension
CPT/HCPCS: 36415; 80053; 80307; 81001; 85025; 96372; 99284; G0480; J2270; J2405; 80320

== ENCOUNTER 2017-04-22 06:03 | Day surgery (SDC) | payer MEDICARE ==
[~2017-04-22 06:03] MED LIST: ANCEF/STERILE WATER 2 GM/20 ML 2 GM/20 ML SYRINGE IV NR; NACL 0.9% 1000 ML 1,000 ML IV SCH
[2017-04-22 09:02] LABS: Basophils % (Auto) 0.8 % (0.0-1.8); Eosinophils # (Auto) 0.1 K/mm3 (0.0-0.4); Eosinophils % (Auto) 1.8 % (0.0-4.3); Hematocrit 32.2 % (35.5-45.6); Hemoglobin 11.2 gm/dl (11.8-15.2); Lymphocytes # (Auto) 1.4 K/mm3 (1.2-5.4); Lymphocytes % (Auto) 21.1 % (13.4-35.0); Mean Corpuscular HGB Conc 35 % (32-34); Mean Corpuscular Hemoglobin 31 pg (28-32); Mean Corpuscular Volume 88 fl (84-94); Monocytes # (Auto) 0.6 K/mm3 (0.0-0.8); Platelet Count 301 K/mm3 (140-440); Red Blood Count 3.68 M/mm3 (3.65-5.03); Red Cell Distribution Width 13.6 % (13.2-15.2)
[2017-04-22 09:11] LABS: BUN/Creatinine Ratio 16; Blood Urea Nitrogen 13 mg/dL (9-20); Calcium 8.9 mg/dL (8.4-10.2); Hemolysis Index 0
[2017-04-22 09:12] LABS: INR 1.69 (0.87-1.13)
[2017-04-22 09:13] LABS: Partial Thromboplastin Time 43.6 Sec. (24.2-36.6)
[2017-04-22] MEDS ORDERED: D50W (25GM) Syringe IV ONE ×2 (11:37→11:40)
[2017-04-22] MEDS ORDERED: XYLOCAINE 2% INFILTRATI ONE (13:16)
[2017-04-22] MEDS ORDERED: HEPARIN/NS 5000 UNIT/500ML(CATH LAB) 1,000 ML IR ONE (13:16)
[2017-04-22] MEDS ORDERED: HEPARIN 10,000 UNITS/10 ML ONE (13:16)
[2017-04-22] MEDS ORDERED: VERSED ONE (13:17)
[2017-04-22] MEDS ORDERED: SUBLIMAZE ONE (13:17)
[2017-04-22] MEDS ORDERED: ANCEF/STERILE WATER 2 GM/20 ML 2 GM/20 ML SYRINGE IV ONE (13:18)
--- NOTE | 2017-04-22 13:54 | Short Stay Summary ---
Short Stay Documentation Date of service: 04/22/17 - History Principal diagnosis: Venous hypertension H&P: obtained from office - Allergies and Medications Current Medications: Allergies No Known Allergies Allergy (Verified 11/17/16 19:20) Home Medications Medication Instructions Recorded Confirmed Last Taken Type Citalopram [celeXA] 10 mg PO QDAY 04/11/16 04/22/17 04/21/17 History 10mg Furosemide [Lasix TAB] 80 mg PO QDAY 04/11/16 04/22/17 04/21/17 History 80mg Gabapentin [Neurontin] 800 mg PO BID 04/11/16 04/22/17 04/21/17 History 800mg Hydralazine HCl [Apresoline TAB] 50 mg PO Q8HR 04/11/16 04/22/17 04/21/17 History 50mg Isosorbide Dinitrate [Isordil 20 mg PO TID 04/11/16 04/22/17 04/21/17 History Titradose] Labetalol HCl 200 mg PO Q12H 04/11/16 04/22/17 04/21/17 History 200mg Multivit-Min/Iron Fum/Folic AC 1 each PO DAILY 04/11/16 04/22/17 04/21/17 History [Lrfwi-Jgwhjpj-Xepmoqor Tablet] 10tab Potassium Chloride [Klor-Con 10] 10 meq PO DAILY 04/11/16 04/22/17 04/21/17 History 10meq Protein Supplement [Promod] 30 ml PO BID 04/11/16 04/22/17 04/21/17 History 30ml Spironolactone [Aldactone] 25 mg PO BID 04/11/16 04/22/17 04/21/17 History 25mg Tamsulosin [Flomax] 0.4 mg PO QDAY 04/11/16 04/22/17 04/21/17 History 0.4mg Warfarin Sodium [Coumadin] 4 mg PO QDAY 04/11/16 11/17/16 Unknown History cloNIDine [Catapres] 0.2 mg PO QHS 04/11/16 04/22/17 04/21/17 History 0.2mg Phenytoin [Dilantin] 100 mg PO QID #90 04/17/16 04/22/17 04/21/17 Rx 100mg Active Medications Cefazolin Sodium (Ancef/Sterile Water 2 Gm/20 Ml) 2 gm in 20 mls @ 80 mls/hr IV PREOP NR PRN Reason: Protocol Stop: 04/22/17 23:59 Sodium Chloride (Nacl 0.9% 1000 Ml) 1,000 mls @ 42 mls/hr IV DIRECT DAVI Last Admin: 04/22/17 10:19 Dose: 42 mls/hr - Brief post op/procedure progress note Date of procedure: 04/22/17 Pre-op diagnosis: venous hypertension Post-op diagnosis: same Procedure: BLE venogram Anesthesia: local Surgeon: OTONIEL BANSAL Estimated blood loss: minimal Pathology: none Condition: stable - Disposition Condition at discharge: Good Disposition: DC-01 TO HOME OR SELFCARE Short Stay Discharge Plan Activity: advance as tolerated Weight Bearing Status: Weight Bear as Tolerated Diet: regular Wound: keep clean and dry, per your surgeon's advice Follow up with: MAGEN GOLDSMITH MD [Primary Care Provider] - 7 Days
--- NOTE | 2017-04-22 13:57 | Operative Report ---
Operative Report Operative Report: EXAM: BILATERAL LOWER EXTREMITY VENOGRAM CLINICAL INDICATION: VENOUS HYPERTENSION WITH NONHEALING BILATERAL LOWER EXTREMITY WOUNDS TO DATE: 04/22/2017 PROCEDURE: Following an expiration of the risks, benefits and alternatives; written informed consent was obtained. The patient was brought to the injury graphic suite and placed in supine position on the examination table. Initial ultrasound evaluation of the legs demonstrated patent femoral veins. Patient's legs were prepped and draped in the usual sterile fashion. 1% lidocaine was used for anesthesia. Under ultrasound guidance, the right common femoral vein was cannulated with a 7 cm 18-gauge needle. A 0.035 guidewire was advanced proximally. The needle was removed and a 5 [place] sheath placed. Access to the left femoral vein was obtained in a similar fashion and an additional 5 [place] sheath placed. Initial fluoroscopic images demonstrated a previously placed IVC filter. Contrast was injected through the sheath on the right side. This demonstrated complete occlusion of the IVC, bilateral common iliac veins, bilateral external iliac veins with extensive collateral formation. The collateral flow on the right side drains into the right subclavian vein. Contrast was injected through the sheath on the left side. 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 Bilateral common iliac veins of bilateral external iliac veins with extensive collateral formation through the katelyn-azygos systems. At this point, the guidewires and sheaths were removed and hemostasis achieved using minute compression. Sterile dressings were then applied. Conscious sedation was initiated at 13:25. Conscious sedation was terminated at 13:56. Continuous cardiopulmonary monitoring was utilized. IMPRESSION: 1) Bilateral lower extremity venogram demonstrating previously placed IVC filter with unreconstructable venous occlusion of the IVC, bilateral common iliac veins and bilateral external iliac veins with extensive collateral formation
[2017-04-22 15:39] VITALS: BP 128/79
== END 2017-04-22 16:30 | disposition home or self-care (01) ==
LOC: CATHLABREC 06:03
PROVIDERS: ATTEND Surgery Vascular Surgery
DX: I87.393 Chronic venous hypertension (idiopathic) with other complications of bilateral lower extremity (principal); I10 Essential (primary) hypertension; E78.00 Pure hypercholesterolemia, unspecified; Z79.899 Other long term (current) drug therapy; Z79.01 Long term (current) use of anticoagulants; Z86.73 Personal history of transient ischemic attack (TIA), and cerebral infarction without residual deficits
CPT/HCPCS: 36000; 36415; 75822; 80048; 82962; 85025; 85610; 85730; 96374; 99156; 99157; C1769; C1894; J0690; J1644; J2250; J3010; J7030; Q9967

== ENCOUNTER 2017-07-25 16:29 | Outpatient (CLI) | payer MEDICARE ==
[2017-07-25 17:33] LABS: Blood Urea Nitrogen 13 mg/dL (9-20)
--- NOTE | 2017-07-25 20:23 | Magnetic Resonance Report ---
FINAL REPORT PROCEDURE: MR LE NONJOINT RT WO CON TECHNIQUE: Noncontrast MRI of the right calf were obtained HISTORY: LYMPHEDEMA COMPARISON: No prior studies are available for comparison. FINDINGS: The study is limited by patient motion artifact. There is circumferential subcutaneous edema, which is nonspecific. No bone marrow edema is seen to suggest osteomyelitis. No muscle edema is identified. IMPRESSION: No bone marrow edema is seen in the imaged portions of the tibia or fibula to suggest osteomyelitis. There is nonspecific circumferential subcutaneous edema
== END 2017-07-25 16:30 | disposition home or self-care (01) ==
LOC: MRI 16:29
PROVIDERS: ATTEND Surgery Vascular Surgery
DX: R60.9 Edema, unspecified (principal)
CPT/HCPCS: 36415; 82565; 84520

== ENCOUNTER 2017-07-26 08:56 | Outpatient (CLI) | payer MEDICARE ==
[2017-07-26] MEDS ORDERED: XYLOCAINE TOPICAL 4% TP ONE ×2 (10:28→11:59)
== END 2017-07-26 08:57 | disposition home or self-care (01) ==
LOC: WOUND 08:56
PROVIDERS: ATTEND Surgery
DX: I89.0 Lymphedema, not elsewhere classified (principal); S91.302D Unspecified open wound, left foot, subsequent encounter; S91.301D Unspecified open wound, right foot, subsequent encounter; S81.802D Unspecified open wound, left lower leg, subsequent encounter; K21.9 Gastro-esophageal reflux disease without esophagitis; I12.9 Hypertensive chronic kidney disease with stage 1 through stage 4 chronic kidney disease, or unspecified chronic kidney disease; N18.9 Chronic kidney disease, unspecified; F32.9 Major depressive disorder, single episode, unspecified; Z86.718 Personal history of other venous thrombosis and embolism; Z87.891 Personal history of nicotine dependence; X58.XXXD Exposure to other specified factors, subsequent encounter
CPT/HCPCS: 11042; 11045; 29581; G0463; 99215

== ENCOUNTER 2017-08-02 09:17 | Outpatient (CLI) | payer MEDICARE | END 2017-08-02 09:18 | disposition home or self-care (01) | LOC: WOUND 09:17 | PROVIDERS: ATTEND Surgery | DX: S81.802D Unspecified open wound, left lower leg, subsequent encounter (principal); S81.801D Unspecified open wound, right lower leg, subsequent encounter; S91.302D Unspecified open wound, left foot, subsequent encounter; S31.104D Unspecified open wound of abdominal wall, left lower quadrant without penetration into peritoneal cavity, subsequent encounter; I89.0 Lymphedema, not elsewhere classified; K21.9 Gastro-esophageal reflux disease without esophagitis; N18.9 Chronic kidney disease, unspecified; I12.9 Hypertensive chronic kidney disease with stage 1 through stage 4 chronic kidney disease, or unspecified chronic kidney disease; G81.90 Hemiplegia, unspecified affecting unspecified side; F32.9 Major depressive disorder, single episode, unspecified; Z87.891 Personal history of nicotine dependence; Z86.718 Personal history of other venous thrombosis and embolism; X58.XXXD Exposure to other specified factors, subsequent encounter | CPT/HCPCS: 29581 ==

== ENCOUNTER 2017-08-09 09:04 | Outpatient (CLI) | payer MEDICARE ==
[2017-08-09] MEDS ORDERED: XYLOCAINE TOPICAL 4% TP ONE (09:24)
[2017-08-09] MEDS ORDERED: DAKIN'S FULL STRENGTH TP ONE (09:38)
[2017-08-09] MEDS ORDERED: NACL 0.9% IR ONE (09:39)
== END 2017-08-09 09:05 | disposition home or self-care (01) ==
LOC: WOUND 09:04
PROVIDERS: ATTEND Surgery
DX: I89.0 Lymphedema, not elsewhere classified (principal); K21.9 Gastro-esophageal reflux disease without esophagitis; I12.9 Hypertensive chronic kidney disease with stage 1 through stage 4 chronic kidney disease, or unspecified chronic kidney disease; N18.9 Chronic kidney disease, unspecified; G81.90 Hemiplegia, unspecified affecting unspecified side; Z86.718 Personal history of other venous thrombosis and embolism; Z87.891 Personal history of nicotine dependence
CPT/HCPCS: 87076; 87116; 87186

== ENCOUNTER 2017-09-05 12:46 | Outpatient (CLI) | payer MEDICARE ==
[2017-09-05] MEDS ORDERED: XYLOCAINE TOPICAL 4% TP ONE (13:17)
== END 2017-09-05 12:47 | disposition home or self-care (01) ==
LOC: WOUND 12:46
PROVIDERS: ATTEND Surgery
DX: T87.89 Other complications of amputation stump (principal); I89.0 Lymphedema, not elsewhere classified; K21.9 Gastro-esophageal reflux disease without esophagitis; I12.9 Hypertensive chronic kidney disease with stage 1 through stage 4 chronic kidney disease, or unspecified chronic kidney disease; N18.9 Chronic kidney disease, unspecified; G81.90 Hemiplegia, unspecified affecting unspecified side; Z86.718 Personal history of other venous thrombosis and embolism; Z87.891 Personal history of nicotine dependence; Y83.5 Amputation of limb(s) as the cause of abnormal reaction of the patient, or of later complication, without mention of misadventure at the time of the procedure

== ENCOUNTER 2017-09-12 13:29 | Outpatient (CLI) | payer MEDICARE ==
[2017-09-12] MEDS ORDERED: XYLOCAINE TOPICAL 4% TP ONE (14:11)
[2017-09-12] MEDS ORDERED: AD OINTMENT TP PRN (14:12)
== END 2017-09-12 13:30 | disposition home or self-care (01) ==
LOC: WOUND 13:29
PROVIDERS: ATTEND Surgery
DX: T87.89 Other complications of amputation stump (principal); K21.9 Gastro-esophageal reflux disease without esophagitis; I12.9 Hypertensive chronic kidney disease with stage 1 through stage 4 chronic kidney disease, or unspecified chronic kidney disease; N18.9 Chronic kidney disease, unspecified; G81.90 Hemiplegia, unspecified affecting unspecified side; F32.89 Other specified depressive episodes; Z86.718 Personal history of other venous thrombosis and embolism; Z87.891 Personal history of nicotine dependence; Y83.5 Amputation of limb(s) as the cause of abnormal reaction of the patient, or of later complication, without mention of misadventure at the time of the procedure

== ENCOUNTER 2017-09-19 12:45 | Outpatient (CLI) | payer MEDICARE ==
[2017-09-19] MEDS ORDERED: AD OINTMENT TP ONE (13:26)
[2017-09-19] MEDS ORDERED: XYLOCAINE TOPICAL 4% TP ONE (13:27)
[2017-09-20] MEDS ORDERED: AD OINTMENT TP SCH (10:00)
== END 2017-09-19 12:46 | disposition home or self-care (01) ==
LOC: WOUND 12:45
PROVIDERS: ATTEND Surgery
DX: T87.89 Other complications of amputation stump (principal); K21.9 Gastro-esophageal reflux disease without esophagitis; I12.9 Hypertensive chronic kidney disease with stage 1 through stage 4 chronic kidney disease, or unspecified chronic kidney disease; N18.9 Chronic kidney disease, unspecified; G81.90 Hemiplegia, unspecified affecting unspecified side; F32.89 Other specified depressive episodes; Z86.718 Personal history of other venous thrombosis and embolism; Z87.891 Personal history of nicotine dependence; Y83.5 Amputation of limb(s) as the cause of abnormal reaction of the patient, or of later complication, without mention of misadventure at the time of the procedure
CPT/HCPCS: 99215; A6250; G0463

== ENCOUNTER 2017-09-26 10:50 | Outpatient (CLI) | payer MEDICARE ==
[2017-09-26] MEDS ORDERED: XYLOCAINE TOPICAL 4% TP ONE ×2 (11:25→14:59)
== END 2017-09-26 10:51 | disposition home or self-care (01) ==
LOC: WOUND 10:50
PROVIDERS: ATTEND Surgery
DX: T87.89 Other complications of amputation stump (principal); K21.9 Gastro-esophageal reflux disease without esophagitis; I12.9 Hypertensive chronic kidney disease with stage 1 through stage 4 chronic kidney disease, or unspecified chronic kidney disease; N18.9 Chronic kidney disease, unspecified; G81.90 Hemiplegia, unspecified affecting unspecified side; F32.89 Other specified depressive episodes; Z86.718 Personal history of other venous thrombosis and embolism; Z87.891 Personal history of nicotine dependence; Y83.5 Amputation of limb(s) as the cause of abnormal reaction of the patient, or of later complication, without mention of misadventure at the time of the procedure

== ENCOUNTER 2017-11-25 09:45 | Outpatient (CLI) | payer MEDICARE ==
[2017-11-25] MEDS ORDERED: XYLOCAINE TOPICAL 4% TP ONE ×2 (10:25→12:00)
== END 2017-11-25 09:46 | disposition home or self-care (01) ==
LOC: WOUND 09:45
PROVIDERS: ATTEND Surgery
DX: T87.89 Other complications of amputation stump (principal); K21.9 Gastro-esophageal reflux disease without esophagitis; I12.9 Hypertensive chronic kidney disease with stage 1 through stage 4 chronic kidney disease, or unspecified chronic kidney disease; N18.9 Chronic kidney disease, unspecified; G81.90 Hemiplegia, unspecified affecting unspecified side; F32.89 Other specified depressive episodes; Z86.718 Personal history of other venous thrombosis and embolism; Z87.891 Personal history of nicotine dependence; Y83.5 Amputation of limb(s) as the cause of abnormal reaction of the patient, or of later complication, without mention of misadventure at the time of the procedure
CPT/HCPCS: 11042; G0463; 99215

== ENCOUNTER 2017-12-02 09:20 | Outpatient (CLI) | payer MEDICARE ==
[2017-12-02] MEDS ORDERED: XYLOCAINE TOPICAL 4% TP ONE ×2 (09:48→15:40)
[2017-12-02] MEDS ORDERED: SODIUM CHLORIDE FLUSH SYRINGE 10 ML IV ONE ×2 (10:00→15:40)
== END 2017-12-02 09:21 | disposition home or self-care (01) ==
LOC: WOUND 09:20
PROVIDERS: ATTEND Surgery
DX: T87.89 Other complications of amputation stump (principal); K21.9 Gastro-esophageal reflux disease without esophagitis; I12.9 Hypertensive chronic kidney disease with stage 1 through stage 4 chronic kidney disease, or unspecified chronic kidney disease; N18.9 Chronic kidney disease, unspecified; G81.90 Hemiplegia, unspecified affecting unspecified side; F32.89 Other specified depressive episodes; Z86.718 Personal history of other venous thrombosis and embolism; Z87.891 Personal history of nicotine dependence; Y83.5 Amputation of limb(s) as the cause of abnormal reaction of the patient, or of later complication, without mention of misadventure at the time of the procedure

== ENCOUNTER 2017-12-09 10:01 | Outpatient (CLI) | payer MEDICARE ==
[2017-12-09] MEDS ORDERED: XYLOCAINE TOPICAL 4% TP ONE ×2 (10:05→10:31)
[2017-12-09] MEDS ORDERED: AD OINTMENT TP ONE (10:10)
[2017-12-09] MEDS ORDERED: AD OINTMENT TP PRN (10:32)
== END 2017-12-09 10:02 | disposition home or self-care (01) ==
LOC: WOUND 10:01
PROVIDERS: ATTEND Surgery
DX: T87.89 Other complications of amputation stump (principal); K21.9 Gastro-esophageal reflux disease without esophagitis; I12.9 Hypertensive chronic kidney disease with stage 1 through stage 4 chronic kidney disease, or unspecified chronic kidney disease; N18.9 Chronic kidney disease, unspecified; G81.90 Hemiplegia, unspecified affecting unspecified side; F32.9 Major depressive disorder, single episode, unspecified; Z86.718 Personal history of other venous thrombosis and embolism; Z87.891 Personal history of nicotine dependence; Y83.5 Amputation of limb(s) as the cause of abnormal reaction of the patient, or of later complication, without mention of misadventure at the time of the procedure
CPT/HCPCS: A6250

== ENCOUNTER 2018-05-12 08:03 | Outpatient (CLI) | payer MEDICARE ==
[2018-05-12] MEDS ORDERED: XYLOCAINE TOPICAL 4% TP ONE (08:30)
[2018-05-12] MEDS ORDERED: AD OINTMENT TP SCH (08:30)
== END 2018-05-12 08:04 | disposition home or self-care (01) ==
LOC: WOUND 08:03
PROVIDERS: ATTEND Surgery
DX: T87.89 Other complications of amputation stump (principal); L97.812 Non-pressure chronic ulcer of other part of right lower leg with fat layer exposed; L84 Corns and callosities; K21.9 Gastro-esophageal reflux disease without esophagitis; I12.9 Hypertensive chronic kidney disease with stage 1 through stage 4 chronic kidney disease, or unspecified chronic kidney disease; N18.9 Chronic kidney disease, unspecified; I73.9 Peripheral vascular disease, unspecified; F32.9 Major depressive disorder, single episode, unspecified; G81.90 Hemiplegia, unspecified affecting unspecified side; Z86.73 Personal history of transient ischemic attack (TIA), and cerebral infarction without residual deficits; Z87.891 Personal history of nicotine dependence; Y83.5 Amputation of limb(s) as the cause of abnormal reaction of the patient, or of later complication, without mention of misadventure at the time of the procedure
CPT/HCPCS: 99215; A6250; G0463

== ENCOUNTER 2018-05-19 07:58 | Outpatient (CLI) | payer MEDICARE ==
[2018-05-19] MEDS ORDERED: XYLOCAINE TOPICAL 4% TP ONE (09:00)
== END 2018-05-19 07:59 | disposition home or self-care (01) ==
LOC: WOUND 07:58
PROVIDERS: ATTEND Surgery
DX: T87.89 Other complications of amputation stump (principal); L97.812 Non-pressure chronic ulcer of other part of right lower leg with fat layer exposed; K21.9 Gastro-esophageal reflux disease without esophagitis; I12.9 Hypertensive chronic kidney disease with stage 1 through stage 4 chronic kidney disease, or unspecified chronic kidney disease; N18.9 Chronic kidney disease, unspecified; F32.9 Major depressive disorder, single episode, unspecified; Z86.718 Personal history of other venous thrombosis and embolism; Z86.73 Personal history of transient ischemic attack (TIA), and cerebral infarction without residual deficits; Z87.891 Personal history of nicotine dependence; Y83.5 Amputation of limb(s) as the cause of abnormal reaction of the patient, or of later complication, without mention of misadventure at the time of the procedure
CPT/HCPCS: 87075; 87076; 87116; 87186

== ENCOUNTER 2018-05-27 20:59 | Inpatient (IN) | payer MEDICARE ==
[2018-05-27 22:46] LABS: Basophils # (Auto) 0.1 K/mm3 (0.0-0.1); Basophils % (Auto) 1.3 % (0.0-1.8); Eosinophils # (Auto) 0.1 K/mm3 (0.0-0.4); Eosinophils % (Auto) 0.9 % (0.0-4.3); Hematocrit 30.1 % (35.5-45.6); Hemoglobin 10.5 gm/dl (11.8-15.2); Lymphocytes % (Auto) 9.9 % (13.4-35.0); Mean Corpuscular HGB Conc 35 % (32-34); Mean Corpuscular Volume 89 fl (84-94); Monocytes # (Auto) 0.9 K/mm3 (0.0-0.8); Monocytes % (Auto) 8.9 % (0.0-7.3); Platelet Count 234 K/mm3 (140-440); Red Cell Distribution Width 14.6 % (13.2-15.2)
[2018-05-27] MEDS ORDERED: VANCOMYCIN/NS 1 GM/250 ML 1 GM/250 ML BAG IV ONE (22:51)
[2018-05-27] MEDS ORDERED: MAXIPIME/NS 1 GM/100 ML 1 GM/100 ML BAG IV ONE (22:52)
[2018-05-27] MEDS ORDERED: NACL 0.9% 1000 ML 1,000 ML IV ONE (22:53)
[2018-05-27 23:07] LABS: Alanine Aminotransferase 14 units/L (7-56); Albumin 2.9 g/dL (3.9-5); BUN/Creatinine Ratio 23; Blood Urea Nitrogen 30 mg/dL (9-20); Calcium 9.3 mg/dL (8.4-10.2); Hemolysis Index 37
[2018-05-27 23:33] LABS: INR 1.45 (0.87-1.13)
[2018-05-27 23:34] LABS: Partial Thromboplastin Time 33.6 Sec. (24.2-36.6)
--- NOTE | 2018-05-27 23:34 | XRay Report ---
PROCEDURE: XR ABD SERIES W CXR 1V TECHNIQUE: Abdominal series complete, including supine and upright AP views of the abdomen and front al chest. HISTORY: dizziness COMPARISONS: None . FINDINGS: Heart: Normal. Mediastinum/Vessels: Normal. Lungs/Pleural space: Normal. Bowel gas pattern: Nonobstructive . Masses or calcifications: None . Bony structures: No acute osseous abnormality . Other: No free intraperitoneal air . There is an IVC filter. IMPRESSION: No acute abnormality. This document is electronically signed by Srikanth Quiñonez MD., May 27 2018 11:31:52 PM ET
[2018-05-28 00:56] LABS: Chol/HDL Ratio 4.32 %; HDL Cholesterol 28 mg/dL (40-59); LDL Cholesterol,Direct 78 mg/dL (50-130)
--- NOTE | 2018-05-28 01:12 | Cat Scan Report ---
PROCEDURE: CT HEAD/BRAIN WO CON TECHNIQUE: Computerized tomography of the head was performed without contrast material. HISTORY: dizziness COMPARISONS: None . FINDINGS: Brain: There is no evidence of intracranial hemorrhage. No parenchymal hemorrhage is seen. No mass lesions or mass effect is identified. No abnormal extra-axial fluid collections or masses are seen. A small old lacunar infarcts seen in left thalamus. Nonspecific mineralization visualized basal gangl ia. There is some decreased density seen in the periventricular white matter without mass effect. This i s fairly symmetric and does not exhibit any mass effect consistent with gliosis probably on the basis of microvascular disease or white matter changes of aging. Ventricles: The ventricles, sulcal pattern and fissures are prominent consistent with atrophy. Bone Windows: No evidence of fracture. Paranasal sinuses: Visualized portions are clear. Mastoid air cells: Clear. IMPRESSION: There is evidence of mild atrophy and gliosis. There is also an old lacunar infarct in left thalamus. No acute intracranial abnormalities are identified. . This document is electronically signed by Sriram Serrano MD., May 28 2018 01:09:37 AM ET
--- NOTE | 2018-05-28 01:27 | Emergency Department Report ---
ED Dizziness HPI - General Chief Complaint: Dizziness Stated Complaint: DIZZINESS Time Seen by Provider: 05/27/18 21:18 Source: EMS Mode of arrival: Stretcher Limitations: Physical Limitation - History of Present Illness Initial Comments: 63-year-old male presents to the ED at [facility] with complaint of dizziness 1 day. Patient states feels that the room is spinning. Denies headache, nausea, vomiting, diarrhea, chest pain , shortness of breath, fever or chills. Patient has history of chronic right leg wound and lymphedema. States dressings are changed 3 times a week on Saturday, Saturday, Saturday. Patient states dressings were changed on yesterday, however dressings appear to be soiled with a foul-smell emanating from it. The patient denies pain. He has undergone previous left leg amputation which patient reports due to poor circulation. MD Complaint: dizziness -: days(s) (1) Description: "room spinning" History of Same: No History of Trauma: No Severity: mild Improves With: nothing Worsens With: nothing Associated Symptoms: denies: chest pain, cough, fever/chills, shortness of breath - Related Data Home Medications Medication Instructions Recorded Confirmed Last Taken Citalopram [celeXA] 10 mg PO QDAY 04/11/16 08/23/17 04/21/17 10mg Furosemide [Lasix TAB] 80 mg PO QDAY 04/11/16 08/23/17 04/21/17 80mg Gabapentin [Neurontin] 800 mg PO BID 04/11/16 08/23/17 04/21/17 800mg Hydralazine HCl [Apresoline TAB] 50 mg PO Q8HR 04/11/16 08/23/17 04/21/17 50mg Isosorbide Dinitrate [Isordil 20 mg PO TID 04/11/16 08/23/17 04/21/17 Titradose] Labetalol HCl 200 mg PO Q12H 04/11/16 08/23/17 04/21/17 200mg Multivit-Min/Iron Fum/Folic AC 1 each PO DAILY 04/11/16 08/23/17 04/21/17 [Zjuzf-Cbnrvui-Gaahotuj Tablet] 10tab Potassium Chloride [Klor-Con 10] 10 meq PO DAILY 04/11/16 08/23/17 04/21/17 10meq Protein Supplement [Promod] 30 ml PO BID 04/11/16 08/23/17 04/21/17 30ml Spironolactone [Aldactone] 25 mg PO BID 04/11/16 08/23/17 04/21/17 25mg Tamsulosin [Flomax] 0.4 mg PO QDAY 04/11/16 08/23/17 04/21/17 0.4mg cloNIDine [Catapres] 0.2 mg PO QHS 04/11/16 08/23/17 04/21/17 0.2mg Previous Rx's Medication Instructions Recorded Last Taken Type Phenytoin [Dilantin] 100 mg PO QID #90 04/17/16 04/21/17 Rx 100mg Enoxaparin [Lovenox] 100 mg SUB-Q Q12HR #10 syringe 08/25/17 Unknown Rx Furosemide [Lasix TAB] 80 mg PO DAILY@0600 #60 tablet 08/25/17 Unknown Rx Gabapentin [Neurontin] 800 mg PO BID #60 capsule 08/25/17 Unknown Rx Haloperidol Lactate [Haldol] 2 mg IV Q6H PRN #30 vial 08/25/17 Unknown Rx Multivitamin Tab W-MINERAL 1 each PO QDAY #30 tablet 08/25/17 Unknown Rx [Multiple Vitamin/Mineral (Theragran M)] Potassium Chloride [K-Dur] 10 meq PO QDAY #30 tablet 08/25/17 Unknown Rx Warfarin [Coumadin] 7.5 mg PO DAILY@1700 #30 tablet 08/25/17 Unknown Rx hydrALAZINE [Apresoline TAB] 50 mg PO Q8HR #90 tablet 08/25/17 Unknown Rx oxyCODONE /ACETAMINOPHEN [Percocet 1 tab PO Q6H PRN #60 tablet 08/25/17 Unknown Rx 5/325 mg] Allergies Allergy/AdvReac Type Severity Reaction Status Date / Time No Known Allergies Allergy Verified 11/17/16 19:20 ED Review of Systems ROS: Stated complaint: DIZZINESS Other details as noted in HPI Comment: All other systems reviewed and negative Constitutional: denies: chills, fever Respiratory: denies: shortness of breath Cardiovascular: denies: chest pain Gastrointestinal: denies: abdominal pain, nausea, vomiting Genitourinary: other (denies leg pain) Neurological: vertigo. denies: headache ED Past Medical Hx - Past Medical History Hx Hypertension: Yes Hx CVA: Yes (IMPAIRED GAIT R/T CVA) Hx Congestive Heart Failure: No Hx Diabetes: Yes Hx Deep Vein Thrombosis: No Hx Renal Disease: Yes Hx Arthritis: Yes Hx Seizures: Yes Hx Asthma: No Hx COPD: No - Surgical History Hx Pacemaker: No Hx Internal Defibrillator: No Additional Surgical History: hernia - Social History Smoking Status: Unknown if ever smoked - Medications Home Medications: Home Medications Medication Instructions Recorded Confirmed Last Taken Type Citalopram [celeXA] 10 mg PO QDAY 04/11/16 08/23/17 04/21/17 History 10mg Furosemide [Lasix TAB] 80 mg PO QDAY 04/11/16 08/23/17 04/21/17 History 80mg Gabapentin [Neurontin] 800 mg PO BID 04/11/16 08/23/17 04/21/17 History 800mg Hydralazine HCl [Apresoline TAB] 50 mg PO Q8HR 04/11/16 08/23/17 04/21/17 History 50mg Isosorbide Dinitrate [Isordil 20 mg PO TID 04/11/16 08/23/17 04/21/17 History Titradose] Labetalol HCl 200 mg PO Q12H 04/11/16 08/23/17 04/21/17 History 200mg Multivit-Min/Iron Fum/Folic AC 1 each PO DAILY 04/11/16 08/23/17 04/21/17 History [Mgrlt-Obaewke-Otufbhpe Tablet] 10tab Potassium Chloride [Klor-Con 10] 10 meq PO DAILY 04/11/16 08/23/17 04/21/17 H istory 10meq Protein Supplement [Promod] 30 ml PO BID 04/11/16 08/23/17 04/21/17 History 30ml Spironolactone [Aldactone] 25 mg PO BID 04/11/16 08/23/17 04/21/17 History 25mg Tamsulosin [Flomax] 0.4 mg PO QDAY 04/11/16 08/23/17 04/21/17 History 0.4mg cloNIDine [Catapres] 0.2 mg PO QHS 04/11/16 08/23/17 04/21/17 History 0.2mg Phenytoin [Dilantin] 100 mg PO QID #90 04/17/16 08/23/17 04/21/17 Rx 100mg Enoxaparin [Lovenox] 100 mg SUB-Q Q12HR #10 syringe 08/25/17 Unknown Rx Furosemide [Lasix TAB] 80 mg PO DAILY@0600 #60 tablet 08/25/17 Unknown Rx Gabapentin [Neurontin] 800 mg PO BID #60 capsule 08/25/17 Unknown Rx Haloperidol Lactate [Haldol] 2 mg IV Q6H PRN #30 vial 08/25/17 Unknown Rx Multivitamin Tab W-MINERAL 1 each PO QDAY #30 tablet 08/25/17 Unknown Rx [Multiple Vitamin/Mineral (Theragran M)] Potassium Chloride [K-Dur] 10 meq PO QDAY #30 tablet 08/25/17 Unknown Rx Warfarin [Coumadin] 7.5 mg PO DAILY@1700 #30 tablet 08/25/17 Unknown Rx hydrALAZINE [Apresoline TAB] 50 mg PO Q8HR #90 tablet 08/25/17 Unknown Rx oxyCODONE /ACETAMINOPHEN [Percocet 1 tab PO Q6H PRN #60 tablet 08/25/17 Unknown Rx 5/325 mg] ED Physical Exam - General Limitations: Physical Limitation General appearance: alert, in no apparent distress - Head Head exam: Present: atraumatic, normocephalic - Eye Eye exam: Present: normal appearance - ENT ENT exam: Present: mucous membranes moist - Respiratory Respiratory exam: Present: normal lung sounds bilaterally. Absent: respiratory distress - Cardiovascular Cardiovascular Exam: Present: regular rate, normal rhythm - GI/Abdominal GI/Abdominal exam: Present: soft. Absent: distended, tenderness - Extremities Exam Extremities exam: Present: other (pt s/p left leg amputation; right leg w/ lymphedema, large open wound to lateral aspect of right lower leg w/ foul- smelling, purulent discharge present) - Neurological Exam Neurological exam: Present: alert, oriented X3 - Psychiatric Psychiatric exam: Present: normal affect, normal mood - Skin Skin exam: Present: warm ED Course Vital Signs 05/27/18 05/27/18 05/27/18 22:12 22:23 22:40 Temperature 98.8 F 98.8 F Pulse Rate 110 H 110 H Respiratory 18 18 18 Rate Blood Pressure 122/69 Blood Pressure 120/86 [Right] O2 Sat by Pulse 96 Oximetry ED Medical Decision Making - Lab Data Result diagrams: 05/27/18 22:32 05/27/18 22:32 - EKG Data -: EKG Interpreted by Me EKG shows normal: sinus rhythm, axis, intervals, QRS complexes Rate: tachycardia - EKG Data Interpretation: nonspecific ST-T wave maria m - Radiology Data Radiology results: report reviewed, image reviewed - Medical Decision Making 63-year-old male [facility]. The patient initially mildly tachycardic into the 110s, with normal BP, afebrile, in no respiratory distress. CT head negative for any acute findings. Chest x-ray is negative for any infiltrates. Patient does have IVC filter in place, seen on abdominal film. Patient with infected ulcer of right lower extremity. Purulent, foul-smelling discharge present. Wbc's normal, lactic acid normal, electrolytes normal. Blood cultures and wound cultures sent. Patient given vancomycin and cefepime. Patient followed by [facility] and [facility]. I spoke with Dr. Son, gen surgeon, states will see pt tomorrow. IV fluid bolus given. Vitals stable. Spoke with Dr Barroso, hospit[facility], for admission. - Differential Diagnosis CVA, osteomyelitis, dehydration, gangrene Critical care attestation.: If time is entered above; I have spent that time in minutes in the direct care of this critically ill patient, excluding procedure time. ED Disposition Clinical Impression: Dizziness, Infected stasis ulcer of right lower extremity Disposition: OP ADMIT IP TO THIS HOSP Is pt being admited?: Yes Condition: Stable Referrals: PB BARROW MD [Primary Care Provider] - 3-5 Days Time of Disposition: 01:33
--- NOTE | 2018-05-28 02:17 | History and Physical Report ---
History of Present Illness Date of examination: 05/28/18 History of present illness: 63-year-old man with a history of hypertension, GERD, depression, seizure, CVA, lymphedema, PVD was sent to the emergency room for evaluation of dizziness. These usually wheelchair-bound, stating he gets the dizziness while using the w heelchair and a half hours. Denies associated symptoms, nausea vomiting, tinnitus. In the emergency room he was noted to have foul-smelling discharge from the right leg wound. He stated that the nurses does regular dressing changes, no fever or chills Review of systems Constitutional: no weight loss, chills, fever Ears, eyes, nose, mouth and throat: no nasal congestion, no nasal discharge, no sinus pressure, no vision change, no red eye. Neck: No neck pain or rigidity. Cardiovascular: no palpitations, chest pain Respiratory: no cough, shortness of breath Gastrointestinal: no hematochezia, abdominal pain Genitourinary : no frequency , no hematuria Musculoskeletal: no joint swelling or muscle ache Integumentary: no rash, no pruritis Neurological: no parathesias, no focal weakness Endocrine: no cold or heat intolerance, no polyuria or polydipsia Hematologic/Lymphatic: no easy bruising, no easy bleeding, no gland swelling Allergic/Immunologic: no urticaria, no angioedema. PAST MEDICAL HISTORY:hypertension, GERD, depression, seizure, CVA, lymphedema, PVD, afib PAST SURGICAL HISTORY: hernia repair,BKA SOCIAL HISTORY: Denies alcohol, drugs, tobacco FAMILY HISTORY: Hypertension Medications and Allergies Allergies Allergy/AdvReac Type Severity Reaction Status Date / Time No Known Allergies Allergy Verified 11/17/16 19:20 Home Medications Medication Instructions Recorded Confirmed Last Taken Type Citalopram [celeXA] 10 mg PO QDAY 04/11/16 05/28/18 2 Days Ago History ~05/26/18 Furosemide [Lasix TAB] 80 mg PO QDAY 04/11/16 05/28/18 2 Days Ago History ~05/26/18 Gabapentin [Neurontin] 800 mg PO BID 04/11/16 05/28/18 2 Days Ago History ~05/26/18 Hydralazine HCl [Apresoline TAB] 50 mg PO Q8HR 04/11/16 05/28/18 2 Days Ago History ~05/26/18 Isosorbide Dinitrate [Isordil 20 mg PO TID 04/11/16 05/28/18 2 Days Ago History Titradose] ~05/26/18 Labetalol HCl 200 mg PO Q12H 04/11/16 05/28/18 2 Days Ago History ~05/26/18 Multivit-Min/Iron Fum/Folic AC 1 each PO DAILY 04/11/16 05/28/18 2 Days Ago His tory [Ilggy-Jzyodyp-Gckpnngq Tablet] ~05/26/18 Potassium Chloride [Klor-Con 10] 10 meq PO DAILY 04/11/16 05/28/18 2 Days Ago History ~05/26/18 Protein Supplement [Promod] 30 ml PO BID 04/11/16 05/28/18 2 Days Ago History ~05/26/18 Spironolactone [Aldactone] 25 mg PO BID 04/11/16 05/28/18 2 Days Ago History ~05/26/18 Tamsulosin [Flomax] 0.4 mg PO QDAY 04/11/16 05/28/18 2 Days Ago History ~05/26/18 cloNIDine [Catapres] 0.2 mg PO QHS 04/11/16 05/28/18 2 Days Ago History ~05/26/18 Phenytoin [Dilantin] 100 mg PO QID #90 04/17/16 05/28/18 2 Days Ago Rx ~05/26/18 Enoxaparin [Lovenox] 100 mg SUB-Q Q12HR #10 syringe 08/25/17 05/28/18 2 Days Ago Rx ~05/26/18 Furosemide [Lasix TAB] 80 mg PO DAILY@0600 #60 tablet 08/25/17 05/28/18 2 Days A go Rx ~05/26/18 Gabapentin [Neurontin] 800 mg PO BID #60 capsule 08/25/17 05/28/18 2 Days Ago Rx ~05/26/18 Haloperidol Lactate [Haldol] 2 mg IV Q6H PRN #30 vial 08/25/17 05/28/18 2 Days Ago Rx ~05/26/18 Multivitamin Tab W-MINERAL 1 each PO QDAY #30 tablet 08/25/17 05/28/18 2 Days Ago Rx [Multiple Vitamin/Mineral ~05/26/18 (Theragran M)] Potassium Chloride [K-Dur] 10 meq PO QDAY #30 tablet 08/25/17 05/28/18 2 Days Ago Rx ~05/26/18 Warfarin [Coumadin] 7.5 mg PO DAILY@1700 #30 tablet 08/25/17 05/28/18 2 Days Ago Rx ~05/26/18 hydrALAZINE [Apresoline TAB] 50 mg PO Q8HR #90 tablet 08/25/17 05/28/18 2 Days Ago Rx ~05/26/18 oxyCODONE /ACETAMINOPHEN [Percocet 1 tab PO Q6H PRN #60 tablet 08/25/17 05/28/18 2 Days Ago Rx 5/325 mg] ~05/26/18 Exam - Physical Exam Narrative exam: General Apperance: The patient lying in bed, breathing comfortable HEENT: Normocephalic, atraumatic. Pupils equally round and reactive to light, EOMI, no sclericterus or JVD or thyromegaly or nodule. , no carotid bruit, mucous membranes moist, no exudate or erythema Heart: S1-S2, regular is rhythm Lungs: Clear to auscultation bilaterally, breathing comfortable Abdomen: Positive bowel sounds, soft, nontender, nondistended, no organomegaly Extremities: Left BKA, right leg with large ulcer, + fIbrinous material, +odor, +lymphedema, no cyanosis clubbing Skin: no rash, nodule, warm and dry Neuro: cranial nerves 2-12 intact, speech is fluent, motor/sensory intact - Constitutional Vitals: Temp Pulse Resp BP Pulse Ox 98.8 F 110 H 18 122/69 96 05/27/18 22:40 05/27/18 22:40 05/27/18 22:40 05/27/18 22:40 05/27/18 22:23 Results - Labs CBC & Chem 7: 05/27/18 22:32 05/27/18 22:32 Labs: Abnormal lab results 05/27/18 05/27/18 05/27/18 Range/Units 22:32 22:32 23:08 RBC 3.40 L (3.65-5.03) M/mm3 Hgb 10.5 L (11.8-15.2) gm/dl Hct 30.1 L (35.5-45.6) % MCHC 35 H (32-34) % Lymph % (Auto) 9.9 L (13.4-35.0) % [place] % (Auto) 8.9 H (0.0-7.3) % Lymph # 1.0 L (1.2-5.4) K/mm3 [place] # 0.9 H (0.0-0.8) K/mm3 Seg Neutrophils % 79.0 H (40.0-70.0) % Seg Neutrophils # 7.8 H (1.8-7.7) K/mm3 PT 18.6 H (12.2-14.9) Sec. INR 1.45 H (0.87-1.13) BUN 30 H (9-20) mg/dL Glucose 110 H (75-100) mg/dL Troponin T 0.087 H (0.00-0.029) ng/mL Total Protein 8.3 H (6.3-8.2) g/dL Albumin 2.9 L (3.9-5) g/dL HDL Cholesterol 28 L (40-59) mg/dL - Imaging and Cardiology CT Scan - head: report reviewed Assessment and Plan Assessment Lower extremity wound Dizziness hypertension Atrial Fib PVD GERD depression seizure CVA lymphedema pLAN Admit to medicine Start IV antibiotic, follow wound culture, surgery is consulted to see the patient Check cardiac enzymes, echo, cardiac enzymes, orthostatics Give coumadin, foloow PT/INR Continue appropriate outpatient medications DVT
[2018-05-28] MEDS ORDERED: ZOFRAN IV PRN (03:35)
[2018-05-28] MEDS ORDERED: D50W (25GM) Syringe IV PRN (03:35)
[2018-05-28] MEDS ORDERED: TYLENOL PO PRN (03:35)
[2018-05-28] MEDS ORDERED: SODIUM CHLORIDE FLUSH SYRINGE 10 ML IV PRN (03:35)
[2018-05-28] MEDS ORDERED: PERCOCET 5/325 PO PRN (06:22)
[2018-05-28] MEDS: HumaLOG SUB-Q SCH ×4 (08:00→22:18)
[2018-05-28 08:41] LABS: Basophils % (Auto) 0.2 % (0.0-1.8); Eosinophils # (Auto) 0.1 K/mm3 (0.0-0.4); Eosinophils % (Auto) 0.7 % (0.0-4.3); Hemoglobin 9.7 gm/dl (11.8-15.2); Lymphocytes # (Auto) 0.9 K/mm3 (1.2-5.4); Mean Corpuscular HGB Conc 36 % (32-34); Mean Corpuscular Volume 88 fl (84-94); Monocytes # (Auto) 0.8 K/mm3 (0.0-0.8); Monocytes % (Auto) 9.7 % (0.0-7.3); Platelet Count 218 K/mm3 (140-440); Red Blood Count 3.07 M/mm3 (3.65-5.03); Red Cell Distribution Width 14.4 % (13.2-15.2)
[2018-05-28 09:04] LABS: BUN/Creatinine Ratio 23; Blood Urea Nitrogen 27 mg/dL (9-20); Calcium 8.8 mg/dL (8.4-10.2); Hemolysis Index 2
[2018-05-28] MEDS ORDERED: NON-FORMULARY (Furosemide [Lasix Tab] 80 MG) PO SCH (10:00)
[2018-05-28] MEDS ORDERED: NON-FORMULARY (Protein Supplement [Promod] 30 ML) PO SCH (10:00)
[2018-05-28] MEDS ORDERED: LOVENOX SUB-Q SCH ×2 (10:00)
[2018-05-28] MEDS ORDERED: NON-FORMULARY (Multivit-Min/Iron Fum/Folic Ac [Multi-Vitamin-Minerals Tablet] 1 EACH) PO SCH (10:00)
[2018-05-28 10:01] LABS: Creatine Kinase MB 3.1 ng/mL (0.0-4.0)
[2018-05-28] MEDS: NORMODYNE PO SCH ×2 (10:24→22:03)
[2018-05-28] MEDS: THERAGRAN-M Tab PO SCH (10:24)
[2018-05-28] MEDS: NEURONTIN PO SCH ×2 (10:24→22:03)
[2018-05-28] MEDS: ALDACTONE PO SCH ×2 (10:24→22:03)
[2018-05-28] MEDS: LOVENOX SUB-Q SCH ×2 (10:25→22:04)
[2018-05-28] MEDS: LASIX PO SCH (10:25)
[2018-05-28] MEDS: DILANTIN PO SCH ×4 (10:25→22:03)
[2018-05-28] MEDS: SODIUM CHLORIDE FLUSH SYRINGE 10 ML IV SCH ×2 (10:26→22:07)
[2018-05-28] MEDS: ISORDIL TITRADOSE PO SCH ×3 (10:36→22:03)
[2018-05-28] MEDS: FLOMAX PO SCH (10:44)
--- NOTE | 2018-05-28 12:16 | Consultation ---
History of Present Illness Consult date: 05/28/18 Chief complaint: wound - History of present illness History of present illness: 63 yo m with multiple medical problems including PAD, RLE wound who presents from [facility] with c/o dizziness for the last several days. He states he has had nausea associated with this. No f/c, cp, sob, palpitations, lightheadedness, syncopal episodes, visual disturbances. He states the dizziness is more pronounced when he sits up. He is well known to me from the wound care center. He missed his appointment on Friday 05/26 due to his symptoms of dizziness. Wound cultures of right leg were taken on 05/19/18 which grew staph aureus, aeromonas hydrophila, and klebsiella (results are in [facility]). Past History Past Medical History: heart failure, hypertension, PVD Past Surgical History: Other (L BKA, right LE wound debridements) Social history: other (lives in [facility]) Family history: no significant family history Medications and Allergies Allergies Allergy/AdvReac Type Severity Reaction Status Date / Time No Known Allergies Allergy Verified 11/17/16 19:20 Home Medications Medication Instructions Recorded Confirmed Last Taken Type Citalopram [celeXA] 10 mg PO QDAY 04/11/16 05/28/18 2 Days Ago History ~05/26/18 Furosemide [Lasix TAB] 80 mg PO QDAY 04/11/16 05/28/18 2 Days Ago History ~05/26/18 Gabapentin [Neurontin] 800 mg PO BID 04/11/16 05/28/18 2 Days Ago History ~05/26/18 Hydralazine HCl [Apresoline TAB] 50 mg PO Q8HR 04/11/16 05/28/18 2 Days Ago History ~05/26/18 Isosorbide Dinitrate [Isordil 20 mg PO TID 04/11/16 05/28/18 2 Days Ago History Titradose] ~05/26/18 Labetalol HCl 200 mg PO Q12H 04/11/16 05/28/18 2 Days Ago History ~05/26/18 Multivit-Min/Iron Fum/Folic AC 1 each PO DAILY 04/11/16 05/28/18 2 Days Ago History [Ydvcu-Qmnmoab-Ipmcbwch Tablet] ~05/26/18 Potassium Chloride [Klor-Con 10] 10 meq PO DAILY 04/11/16 05/28/18 2 Days Ago History ~05/26/18 Protein Supplement [Promod] 30 ml PO BID 04/11/16 05/28/18 2 Days Ago History ~05/26/18 Spironolactone [Aldactone] 25 mg PO BID 04/11/16 05/28/18 2 Days Ago History ~05/26/18 Tamsulosin [Flomax] 0.4 mg PO QDAY 04/11/16 05/28/18 2 Days Ago History ~05/26/18 cloNIDine [Catapres] 0.2 mg PO QHS 04/11/16 05/28/18 2 Days Ago History ~05/26/18 Phenytoin [Dilantin] 100 mg PO QID #90 04/17/16 05/28/18 2 Days Ago Rx ~05/26/18 Enoxaparin [Lovenox] 100 mg SUB-Q Q12HR #10 syringe 08/25/17 05/28/18 2 Days Ago Rx ~05/26/18 Furosemide [Lasix TAB] 80 mg PO DAILY@0600 #60 tablet 08/25/17 05/28/18 2 Days Ago Rx ~05/26/18 Gabapentin [Neurontin] 800 mg PO BID #60 capsule 08/25/17 05/28/18 2 Days Ago Rx ~05/26/18 Haloperidol Lactate [Haldol] 2 mg IV Q6H PRN #30 vial 08/25/17 05/28/18 2 Days Ago Rx ~05/26/18 Multivitamin Tab W-MINERAL 1 each PO QDAY #30 tablet 08/25/17 05/28/18 2 Days Ago Rx [Multiple Vitamin/Mineral ~05/26/18 (Theragran M)] Potassium Chloride [K-Dur] 10 meq PO QDAY #30 tablet 08/25/17 05/28/18 2 Days Ago Rx ~05/26/18 Warfarin [Coumadin] 7.5 mg PO DAILY@1700 #30 tablet 08/25/17 05/28/18 2 Days Ago Rx ~05/26/18 hydrALAZINE [Apresoline TAB] 50 mg PO Q8HR #90 tablet 08/25/17 05/28/18 2 Days Ago Rx ~05/26/18 oxyCODONE /ACETAMINOPHEN [Percocet 1 tab PO Q6H PRN #60 tablet 08/25/17 05/28/18 2 Days Ago Rx 5/325 mg] ~05/26/18 Active Meds: Active Medications Acetaminophen (Tylenol) 650 mg PO Q4H PRN PRN Reason: Pain MILD(1-3)/Fever >100.5/VILLAFUERTE Citalopram Hydrobromide (Celexa) 10 mg PO QDAY [facility] Clonidine HCl (Catapres) 0.2 mg PO QHS [facility] Dextrose (D50w (25gm) Syringe) 50 ml IV PRN PRN PRN Reason: Hypoglycemia Enoxaparin Sodium (Lovenox) 100 mg SUB-Q Q12HR [facility] Last Admin: 05/28/18 10:25 Dose: 100 mg Documented by: Furosemide (Lasix) 80 mg PO DAILY [facility] Last Admin: 05/28/18 10:25 Dose: 80 mg Documented by: Gabapentin (Neurontin) 800 mg PO BID [facility] Last Admin: 05/28/18 10:24 Dose: 800 mg Documented by: Piperacillin Sod/Tazobactam Sod (Zosyn/Ns 3.375gm/50ml) 3.375 gm in 50 mls @ 100 mls/hr IV Q8HR [facility] Insulin Human Lispro (Humalog) 0 unit SUB-Q ACHS [facility]; Protocol Last Admin: 05/28/18 08:00 Dose: Not Given Documented by: Isosorbide Dinitrate (Isordil Titradose) 20 mg PO TID [facility] Last Admin: 05/28/18 10:36 Dose: 20 mg Documented by: Labetalol HCl (Normodyne) 200 mg PO Q12HR [facility] Last Admin: 05/28/18 10:24 Dose: 200 mg Documented by: Multivitamins/Minerals (Theragran-M Tab) 1 each PO QDAY [facility] Last Admin: 05/28/18 10:24 Dose: 1 each Documented by: Ondansetron HCl (Zofran) 4 mg IV Q4H PRN PRN Reason: Nausea And Vomiting Oxycodone/Acetaminophen (Percocet 5/325) 1 tab PO Q6H PRN PRN Reason: Pain, Moderate (4-6) Phenytoin (Dilantin) 100 mg PO QID [facility] Last Admin: 05/28/18 10:25 Dose: 100 mg Documented by: Sodium Chloride (Sodium Chloride Flush Syringe 10 Ml) 10 ml IV BID [facility] Last Admin: 05/28/18 10:26 Dose: 10 ml Documented by: Sodium Chloride (Sodium Chloride Flush Syringe 10 Ml) 10 ml IV PRN PRN PRN Reason: LINE FLUSH Spironolactone (Aldactone) 25 mg PO BID [facility] Last Admin: 05/28/18 10:24 Dose: 25 mg Documented by: Tamsulosin HCl (Flomax) 0.4 mg PO QDAY [facility] Last Admin: 05/28/18 10:44 Dose: 0.4 mg Documented by: Warfarin Sodium (Coumadin) 7.5 mg PO DAILY@1700 [facility]; Protocol Review of Systems All systems: negative (10 pt ROS performed and negative except for that listed in HPI) Exam Vital Signs Resp 18 05/27/18 22:12 Narrative exam: Gen: AAOx3. NDA CV: s1, S2+ resp; even and unlabored Ext; RLE dressing c/d/i Results - Labs 05/28/18 07:21 05/28/18 07:21 Abnormal lab results 05/27/18 05/27/18 05/27/18 Range/Units 22:32 22:32 23:08 RBC 3.40 L (3.65-5.03) M/mm3 Hgb 10.5 L (11.8-15.2) gm/dl Hct 30.1 L (35.5-45.6) % MCHC 35 H (32-34) % Lymph % (Auto) 9.9 L (13.4-35.0) % [place] % (Auto) 8.9 H (0.0-7.3) % Lymph # 1.0 L (1.2-5.4) K/mm3 [place] # 0.9 H (0.0-0.8) K/mm3 Seg Neutrophils % 79.0 H (40.0-70.0) % Seg Neutrophils # 7.8 H (1.8-7.7) K/mm3 PT 18.6 H (12.2-14.9) Sec. INR 1.45 H (0.87-1.13) BUN 30 H (9-20) mg/dL Glucose 110 H (75-100) mg/dL POC Glucose (70-105) Total Creatine Kinase (55-170) units/L Troponin T 0.087 H (0.00-0.029) ng/mL Total Protein 8.3 H (6.3-8.2) g/dL Albumin 2.9 L (3.9-5) g/dL HDL Cholesterol 28 L (40-59) mg/dL 05/28/18 05/28/18 05/28/18 Range/Units 07:21 07:21 07:21 RBC 3.07 L (3.65-5.03) M/mm3 Hgb 9.7 L (11.8-15.2) gm/dl Hct 27.0 L (35.5-45.6) % MCHC 36 H (32-34) % Lymph % (Auto) 11.0 L (13.4-35.0) % [place] % (Auto) 9.7 H (0.0-7.3) % Lymph # 0.9 L (1.2-5.4) K/mm3 [place] # (0.0-0.8) K/mm3 Seg Neutrophils % 78.4 H (40.0-70.0) % Seg Neutrophils # (1.8-7.7) K/mm3 PT (12.2-14.9) Sec. INR (0.87-1.13) BUN 27 H (9-20) mg/dL Glucose (75-100) mg/dL POC Glucose (70-105) Total Creatine Kinase 211 H (55-170) units/L Troponin T 0.086 H (0.00-0.029) ng/mL Total Protein (6.3-8.2) g/dL Albumin (3.9-5) g/dL HDL Cholesterol (40-59) mg/dL 05/28/18 05/28/18 Range/Units 09:16 12:03 RBC (3.65-5.03) M/mm3 Hgb (11.8-15.2) gm/dl Hct (35.5-45.6) % MCHC (32-34) % Lymph % (Auto) (13.4-35.0) % [place] % (Auto) (0.0-7.3) % Lymph # (1.2-5.4) K/mm3 [place] # (0.0-0.8) K/mm3 Seg Neutrophils % (40.0-70.0) % Seg Neutrophils # (1.8-7.7) K/mm3 PT (12.2-14.9) Sec. INR (0.87-1.13) BUN (9-20) mg/dL Glucose (75-100) mg/dL POC Glucose 106 H (70-105) Total Creatine Kinase 218 H (55-170) units/L Troponin T 0.085 H (0.00-0.029) ng/mL Total Protein (6.3-8.2) g/dL Albumin (3.9-5) g/dL HDL Cholesterol (40-59) mg/dL Diabetes panel 05/27/18 05/28/18 Range/Units 22:32 07:21 Sodium 138 142 (137-145) mmol/L Potassium 4.3 3.8 (3.6-5.0) mmol/L Chloride 99.9 102.3 (98-107) mmol/L Carbon Dioxide 23 26 (22-30) mmol/L BUN 30 H 27 H (9-20) mg/dL Creatinine 1.3 1.2 (0.8-1.5) mg/dL Glucose 110 H 94 (75-100) mg/dL Calcium 9.3 8.8 (8.4-10.2) mg/dL AST 19 (5-40) units/L ALT 14 (7-56) units/L Alkaline Phosphatase 89 (35-129) units/L Total Protein 8.3 H (6.3-8.2) g/dL Albumin 2.9 L (3.9-5) g/dL Triglycerides 84 (2-149) mg/dL HDL Cholesterol 28 L (40-59) mg/dL Calcium panel 05/27/18 05/28/18 Range/Units 22:32 07:21 Calcium 9.3 8.8 (8.4-10.2) mg/dL Albumin 2.9 L (3.9-5) g/dL Pituitary panel 05/27/18 05/28/18 Range/Units 22:32 07:21 Sodium 138 142 (137-145) mmol/L Potassium 4.3 3.8 (3.6-5.0) mmol/L Chloride 99.9 102.3 (98-107) mmol/L Carbon Dioxide 23 26 (22-30) mmol/L BUN 30 H 27 H (9-20) mg/dL Creatinine 1.3 1.2 (0.8-1.5) mg/dL Glucose 110 H 94 (75-100) mg/dL Calcium 9.3 8.8 (8.4-10.2) mg/dL Adrenal panel 05/27/18 05/28/18 Range/Units 22:32 07:21 Sodium 138 142 (137-145) mmol/L Potassium 4.3 3.8 (3.6-5.0) mmol/L Chloride 99.9 102.3 (98-107) mmol/L Carbon Dioxide 23 26 (22-30) mmol/L BUN 30 H 27 H (9-20) mg/dL Creatinine 1.3 1.2 (0.8-1.5) mg/dL Glucose 110 H 94 (75-100) mg/dL Calcium 9.3 8.8 (8.4-10.2) mg/dL Total Bilirubin 0.60 (0.1-1.2) mg/dL AST 19 (5-40) units/L ALT 14 (7-56) units/L Alkaline Phosphatase 89 (35-129) units/L Total Protein 8.3 H (6.3-8.2) g/dL Albumin 2.9 L (3.9-5) g/dL - Imaging Additional studies: Wound photos reviewed Assessment and Plan 63 yo M with 1. infected right lower extremity chronic wound 2. PAD 3. dizziness Plan; 1. will perform bedside debridement of wounds - consent obtained from patient 2. cultures sensitive to vancomycin - already started by hospitalist 3. patient has not up to date arterial studies - will obtain arterial duplex and meggan of right leg 4. w/u of dizziness per 1' service 5. wound care consult Thank you, please call with questions.
[2018-05-28] MEDS ORDERED: XYLOCAINE TOPICAL 4% TP ONE (13:27)
--- NOTE | 2018-05-28 13:45 | Procedure Note ---
Date of procedure: 05/28/18 Pre-op diagnosis: infected right leg wound and right foot blister Post-op diagnosis: same Procedure: excisional debridement of infected right leg wound and debridement of right foot blister Findings: Consent verified on chart. Lidocaine 4% topical applied to the wounds. The wounds were prepped with betadine. An excisional debridement involving skin and subcutanous tissue was performed to remove slough and devitalized and necrotic tissue of right lateral leg wound and right foot blister/wound. The slough and necrotic tissue of the lateral wound was sharply debrided with a curette. There was pinpoint bleeding from the wound bed which was controlled with pressure. The wound measured 6cm x 3cm x 1 cm. The wound was packed with alginate dressing, covered with 4x4 gauze, and wrapped with kerlex. The right dorsal foot blister was drained by puncturing it with an 18 G needle. A copious amount of serous fluid was evacuated. The blister was then unroofed by excising necrotic skin using a 15 blade. Slough and fibrinous exudate overlying the wound bed was sharply debrided with a curette. The wound bed was clean. The wound bed was covered using an adaptic and 4x4 gauze, and wrapped with kerlix. The patient tolerated the procedure well. All sharps disposed of appropriately. Anesthesia: local Surgeon: CRYSTAL CALLEJAS Estimated blood loss: minimal Pathology: none Condition: stable Disposition: no change
[2018-05-28] MEDS: COUMADIN PO SCH (16:24)
[2018-05-28] MEDS: ZOSYN/NS 3.375GM/50ML 3.375 GM/50 ML BAG IV SCH ×3 (18:08→22:07)
[2018-05-28] MEDS: celeXA PO SCH (18:09)
[2018-05-28] MEDS: CATAPRES PO SCH (22:03)
[2018-05-29] MEDS: PERCOCET 5/325 PO PRN (00:40)
--- NOTE | 2018-05-29 02:42 | Vascular Lab Report ---
PROCEDURE: VL CAROTID DUPLEX BILAT TECHNIQUE: Grayscale, color flow and Doppler spectral tracings obtained of the carotid and vertebral arteries bilaterally. No priors for comparison. HISTORY: dizziness COMPARISONS: No priors FINDINGS: Grayscale and color flow images of the right carotids show mild partially calcified plaque along the bulb and proximal internal carotid artery. Spectral tracings showed peak systolic velocity of 62 cm/s along the mid right internal carotid arter y. The right vertebral artery shows antegrade flow. Grayscale and color flow images of the left carotid show scattered partially calcified plaque along t he bulb and proximal internal carotid artery. Spectral tracings show a peak systolic velocity of 59 cm/s along the mid left internal carotid artery . The left vertebral artery shows antegrade flow. IMPRESSION: Mild atherosclerotic plaque bilaterally with no hemodynamically significant luminal narrowing reflect ing less than 50% diameter stenosis along the internal carotid arteries bilaterally. Vertebral arteries show antegrade flow bilaterally. Assessment performed with sonographic NASCET criteria.. This document is electronically signed by James Orta MD., May 29 2018 02:40:15 AM ET
--- NOTE | 2018-05-29 04:47 | Vascular Lab Report ---
PROCEDURE: VL ARTERIAL DUPLEX LE RT TECHNIQUE: Grayscale, color flow and Doppler tracings obtained of the arteries of the right lower ex tremity. HISTORY: RLE PAD, wound COMPARISONS: No priors FINDINGS: Ovoid mostly hypoechoic structure in the right inguinal region with central vascularity most consiste nt with enlarged inguinal node measuring approximately 2.2 cm in diameter. Abnormal monophasic tracings obtained of the right common femoral artery with a peak systolic velocit y of 122 cm/s consistent with significant more proximal inflow disease. Monophasic tracings also obta ined at the right superficial femoral, and popliteal arteries with significant spectral broadening. Below the knee arteries not evaluated. IMPRESSION: Abnormal monophasic tracings throughout the right lower extremity consistent with significant more pr oximal inflow disease. Limited evaluation with no evaluation of arteries below the knee. Hypoechoic structure in the right inguinal region with central vascularity most consistent with enlar ged inguinal node measuring approximately 2.2 cm in diameter.. This document is electronically signed by James Orta MD., May 29 2018 04:45:27 AM ET
[2018-05-29] MEDS: ZOSYN/NS 3.375GM/50ML 3.375 GM/50 ML BAG IV SCH ×3 (05:03→22:25)
[2018-05-29] MEDS ORDERED: LASIX PO SCH (06:00)
[2018-05-29 06:45] LABS: INR 1.32 (0.87-1.13)
[2018-05-29] MEDS: HumaLOG SUB-Q SCH ×4 (10:51→22:25)
[2018-05-29] MEDS: celeXA PO SCH (10:55)
[2018-05-29] MEDS: FLOMAX PO SCH (10:55)
[2018-05-29] MEDS: THERAGRAN-M Tab PO SCH (10:55)
[2018-05-29] MEDS: LASIX PO SCH (10:55)
[2018-05-29] MEDS: DILANTIN PO SCH ×4 (10:55→22:21)
[2018-05-29] MEDS: NEURONTIN PO SCH ×2 (10:55→22:21)
[2018-05-29] MEDS: ALDACTONE PO SCH ×2 (10:55→22:28)
[2018-05-29] MEDS: NORMODYNE PO SCH ×2 (10:55→22:24)
[2018-05-29] MEDS: ISORDIL TITRADOSE PO SCH ×3 (10:56→22:23)
[2018-05-29] MEDS: SODIUM CHLORIDE FLUSH SYRINGE 10 ML IV SCH ×2 (10:56→22:25)
[2018-05-29] MEDS: LOVENOX SUB-Q SCH ×2 (10:56→22:21)
--- NOTE | 2018-05-29 16:43 | Event Note ---
Date: 05/29/18 Dressing changed by animal caregiver today. Photos reviewed. Will continue dressing changes per animal caregiver. Cultures from 05/19/17 of right leg wound grew staph aureus, aeromonas, and klebsiella - all sensitive to cipro. Patient should be discharged on cipro - 14 days total since starting antibiotics. He may follow up in wound care clinic as scheduled.
[2018-05-29] MEDS: COUMADIN PO SCH (17:13)
--- NOTE | 2018-05-29 18:39 | Discharge Summary ---
Providers - Providers Date of Admission: 05/28/18 02:14 Date of discharge: 05/29/18 Attending physician: DARYL LANE 05/27/18 23:29 Consult to Physician [CONS] Stat Comment: Consulting Provider: JESSIE DING Physician Instructions: Reason For Exam: infected leg wound 05/29/18 13:18 Consult to Physician [CONS] Routine Comment: spoke with Lakisha at office at 1416 Consulting Provider: OTONIEL BANSAL Physician Instructions: Reason For Exam: PAD, nonhealing RLE wound Primary care physician: AMBER CRANDALL Hospitalization Condition: Stable Procedures: excisional debridement of infected right leg wound and debridement of right foot blister Findings: Consent verified on chart. Lidocaine 4% topical applied to the wounds. The wounds were prepped with betadine. An excisional debridement involving skin and subcutanous tissue was performed to remove slough and devitalized and necrotic tissue of right lateral leg wound and right foot blister/wound. The slough and necrotic tissue of the lateral wound was sharply debrided with a curette. There was pinpoint bleeding from the wound bed which was controlled with pressure. The wound measured 6cm x 3cm x 1 cm. The wound was packed with alginate dressing, covered with 4x4 gauze, and wrapped with kerlex. The right dorsal foot blister was drained by puncturing it with an 18 G needle. A copious amount of serous fluid was evacuated. The blister was then unroofed by excising necrotic skin using a 15 blade. Slough and fibrinous exudate overlying the wound bed was sharply debrided with a curette. The wound bed was clean. The wound bed was covered using an adaptic and 4x4 gauze, and wrapped with kerlix. The patient tolerated the procedure well. Hospital course: Lower extremity cellulitis and wound Dizziness hypertension Atrial Fib PVD GERD depression seizure CVA lymphedema pLAN Dressing changed by basket patcher today. Photos reviewed. Will continue dressing changes per basket patcher. Cultures from 05/19/17 of right leg wound grew staph aureus, aeromonas, and klebsiella - all sensitive to cipro. Patient should be discharged on cipro - 14 days total since starting antibiotics. He may follow up in wound care clinic as scheduled. Disposition: TO HOME OR SELFCARE Core Measure Documentation - Palliative Care Palliative Care/ Comfort Measures: Not Applicable - Core Measures Any of the following diagnoses?: none Exam - Constitutional Vitals: Temp Pulse Resp BP Pulse Ox 98.4 F 91 H 18 114/69 92 05/29/18 17:49 05/29/18 17:49 05/29/18 17:49 05/29/18 17:49 05/29/18 17:49 General appearance: Present: no acute distress, well-nourished - EENT Eyes: Present: PERRL ENT: hearing intact, clear oral mucosa - Neck Neck: Present: supple, normal ROM - Respiratory Respiratory effort: normal Respiratory: bilateral: CTA - Cardiovascular Heart rate: 78 Rhythm: regular Heart Sounds: Present: S1 & S2. Absent: rub, click - Extremities Extremities: no ischemia, pulses intact, pulses symmetrical, No edema, abnormal (Rt Foot wound) Extremity abnormal: other Peripheral Pulses: within normal limits - Abdominal General gastrointestinal: Present: soft, non-tender, non-distended, normal bowel sounds Male genitourinary: Present: normal - Integumentary Integumentary: Present: clear, warm, dry - Musculoskeletal Musculoskeletal: gait normal, strength equal bilaterally - Psychiatric Psychiatric: appropriate mood/affect, intact judgment & insight - Neurologic Neurologic: CNII-XII intact, moves all extremities - Additional findings Additional findings: Rt Foot The wound measured 6cm x 3cm x 1 cm - Allied Health Allied health notes reviewed: nursing, case management Plan Follow up with: PB BARROW MD [Staff Physician] - 3-5 Days Forms: Warfarin Discharge Instruction
[2018-05-29] MEDS: CATAPRES PO SCH (22:22)
[2018-05-30] MEDS: ZOSYN/NS 3.375GM/50ML 3.375 GM/50 ML BAG IV SCH (05:31)
[2018-05-30] MEDS: PERCOCET 5/325 PO PRN (05:36)
[2018-05-30 06:47] LABS: INR 1.28 (0.87-1.13)
[2018-05-30 08:51] VITALS: BP 114/80
[2018-05-30] MEDS: NEURONTIN PO SCH (10:10)
[2018-05-30] MEDS: ISORDIL TITRADOSE PO SCH (10:10)
[2018-05-30] MEDS: ALDACTONE PO SCH (10:11)
[2018-05-30] MEDS: LASIX PO SCH (10:11)
[2018-05-30] MEDS: NORMODYNE PO SCH (10:12)
[2018-05-30] MEDS: celeXA PO SCH (10:12)
[2018-05-30] MEDS: FLOMAX PO SCH (10:12)
[2018-05-30] MEDS: LOVENOX SUB-Q SCH (10:13)
[2018-05-30] MEDS: SODIUM CHLORIDE FLUSH SYRINGE 10 ML IV SCH (10:14)
[2018-05-30] MEDS: DILANTIN PO SCH (10:18)
[2018-05-30] MEDS: THERAGRAN-M Tab PO SCH (10:18)
[2018-05-30] MEDS ORDERED: COUMADIN PO SCH (17:00)
--- NOTE | 2018-05-31 02:30 | Vascular Lab Report ---
PROCEDURE: US RIGHT LOWER EXTREMITY ARTERIAL DUPLEX DOPPLER TECHNIQUE: Duplex Doppler ultrasound of either the RIGHT lower extremity arteries or arterial bypass grafts was performed with image documentation. CPT 34946-FD HISTORY: Right lower extremity peripheral artery disease/wound COMPARISONS: None . FINDINGS: Arterial waveforms: Monophasic . Thrombus/Stenosis: None . Color signal: Normal . Significant segmental velocity differential: None . Arterial bypass graft: Not present . Blood pressures are not obtainable in the lower extremities, due to the patient not tolerating the bl ood pressure cuffs IMPRESSION: No evidence of significant arterial insufficiency in the RIGHT lower extremity. This document is electronically signed by Zenaida Naranjo DO., May 31 2018 02:28:28 AM ET
== END 2018-05-30 15:57 | DRG 572 ==
LOC: ED 20:59 → 4A 05-28 02:14
PROVIDERS: ADMIT Internal Medicine; ATTEND Internal Medicine
PROC: 0JBN0ZZ Excision of Right Lower Leg Subcutaneous Tissue and Fascia, Open Approach (ICD-10-PCS; principal; 2018-05-28)
PROC: 0JBQ0ZZ Excision of Right Foot Subcutaneous Tissue and Fascia, Open Approach (ICD-10-PCS; 2018-05-28)
DX: L03.115 Cellulitis of right lower limb (principal); I48.91 Unspecified atrial fibrillation; S81.801A Unspecified open wound, right lower leg, initial encounter; M19.90 Unspecified osteoarthritis, unspecified site; S90.821A Blister (nonthermal), right foot, initial encounter; R56.9 Unspecified convulsions; I89.0 Lymphedema, not elsewhere classified; I87.2 Venous insufficiency (chronic) (peripheral); K21.9 Gastro-esophageal reflux disease without esophagitis; I10 Essential (primary) hypertension; F32.9 Major depressive disorder, single episode, unspecified; E11.51 Type 2 diabetes mellitus with diabetic peripheral angiopathy without gangrene; B95.61 Methicillin susceptible Staphylococcus aureus infection as the cause of diseases classified elsewhere; B96.1 Klebsiella pneumoniae [K. pneumoniae] as the cause of diseases classified elsewhere; X58.XXXA Exposure to other specified factors, initial encounter; Y93.89 Activity, other specified; Z16.23 Resistance to quinolones and fluoroquinolones; I69.398 Other sequelae of cerebral infarction; Y92.89 Other specified places as the place of occurrence of the external cause; Y99.8 Other external cause status; Z99.3 Dependence on wheelchair; Z89.512 Acquired absence of left leg below knee
CPT/HCPCS: 36415; 70450; 74022; 80048; 80053; 80061; 82140; 82550; 82553; 82962; 84484; 85025; 85610; 85730; 87040; 93005; 93010; 93306; 93880; 93922; G0378; J0692; J1650; J2543; J3370; J7030

== ENCOUNTER 2018-06-23 13:33 | Outpatient (CLI) | payer MEDICARE ==
[2018-06-23] MEDS ORDERED: XYLOCAINE TOPICAL 2% 5ML TP ONE (13:35)
[2018-06-23] MEDS ORDERED: XYLOCAINE TOPICAL 4% TP ONE (14:00)
[2018-06-24] MEDS ORDERED: AD OINTMENT TP SCH (10:00)
== END 2018-06-23 13:34 | disposition home or self-care (01) ==
LOC: WOUND 13:33
PROVIDERS: ATTEND Surgery
DX: L97.812 Non-pressure chronic ulcer of other part of right lower leg with fat layer exposed (principal); L97.511 Non-pressure chronic ulcer of other part of right foot limited to breakdown of skin; I87.8 Other specified disorders of veins; L95.9 Vasculitis limited to the skin, unspecified; I12.9 Hypertensive chronic kidney disease with stage 1 through stage 4 chronic kidney disease, or unspecified chronic kidney disease; N18.9 Chronic kidney disease, unspecified; I73.9 Peripheral vascular disease, unspecified; K21.9 Gastro-esophageal reflux disease without esophagitis; N40.0 Benign prostatic hyperplasia without lower urinary tract symptoms; F32.9 Major depressive disorder, single episode, unspecified; Z86.718 Personal history of other venous thrombosis and embolism; Z86.73 Personal history of transient ischemic attack (TIA), and cerebral infarction without residual deficits; Z87.891 Personal history of nicotine dependence; Z89.512 Acquired absence of left leg below knee

== ENCOUNTER 2018-06-28 22:50 | Inpatient (IN) | payer MEDICARE ==
[2018-06-28] MEDS ORDERED: NACL 0.9% 1000 ML IV ONE (23:19)
[2018-06-28] MEDS ORDERED: ZOSYN/NS 4.5GM/100ML 4.5 GM/100 ML VIAL IV ONE (23:21)
--- NOTE | 2018-06-28 23:24 | Emergency Department Report ---
ED Abdominal Pain HPI - General Chief Complaint: Abdominal Pain Stated Complaint: POSS SEPSIS Time Seen by Provider: 06/28/18 23:01 Source: patient, EMS Mode of arrival: Stretcher Limitations: Physical Limitation - History of Present Illness Initial Comments: 63-year-old male presents to ED from retirement with complaint of chills, abdominal pain. Patient reports associated dizziness, nausea and diarrhea. MD Complaint: abdominal pain -: This afternoon Location: epigastric Radiation: none Migration to: no migration Severity: mild Severity scale (0 -10): 5 Quality: aching Consistency: constant Improves With: nothing Worsens With: nothing Associated Symptoms: nausea, diarrhea, chills. denies: vomiting - Related Data Home Medications Medication Instructions Recorded Confirmed Last Taken Citalopram [celeXA] 10 mg PO QDAY 04/11/16 05/28/18 2 Days Ago ~05/26/18 Gabapentin [Neurontin] 800 mg PO BID 04/11/16 05/28/18 2 Days Ago ~05/26/18 Hydralazine HCl [Apresoline TAB] 50 mg PO Q8HR 04/11/16 05/28/18 2 Days Ago ~05/26/18 Isosorbide Dinitrate [Isordil 20 mg PO TID 04/11/16 05/28/18 2 Days Ago Titradose] ~05/26/18 Labetalol HCl 200 mg PO Q12H 04/11/16 05/28/18 2 Days Ago ~05/26/18 Multivit-Min/Iron Fum/Folic AC 1 each PO DAILY 04/11/16 05/28/18 2 Days Ago [Jahps-Zawxodz-Udajpjnn Tablet] ~05/26/18 Potassium Chloride [Klor-Con 10] 10 meq PO DAILY 04/11/16 05/28/18 2 Days Ago ~05/26/18 Protein Supplement [Promod] 30 ml PO BID 04/11/16 05/28/18 2 Days Ago ~05/26/18 cloNIDine [Catapres] 0.2 mg PO QHS 04/11/16 05/28/18 2 Days Ago ~05/26/18 Previous Rx's Medication Instructions Recorded Last Taken Type Enoxaparin [Lovenox] 100 mg SUB-Q Q12HR #10 syringe 08/25/17 2 Days Ago Rx ~05/26/18 Furosemide [Lasix TAB] 80 mg PO DAILY@0600 #60 tablet 08/25/17 2 Days Ago Rx ~05/26/18 Haloperidol Lactate [Haldol] 2 mg IV Q6H PRN #30 vial 08/25/17 2 Days Ago Rx ~05/26/18 Multivitamin Tab W-MINERAL 1 each PO QDAY #30 tablet 08/25/17 2 Days Ago Rx [Multiple Vitamin/Mineral ~05/26/18 (Theragran M)] Potassium Chloride [K-Dur] 10 meq PO QDAY #30 tablet 08/25/17 2 Days Ago Rx ~05/26/18 Warfarin [Coumadin] 7.5 mg PO DAILY@1700 #30 tablet 08/25/17 2 Days Ago Rx ~05/26/18 hydrALAZINE [Apresoline TAB] 50 mg PO Q8HR #90 tablet 08/25/17 2 Days Ago Rx ~05/26/18 oxyCODONE /ACETAMINOPHEN [Percocet 1 tab PO Q6H PRN #60 tablet 08/25/17 2 Days Ago Rx 5/325 mg] ~05/26/18 Ciprofloxacin HCl [Cipro] 500 mg PO BID #28 tablet 05/29/18 Unknown Rx Furosemide [Lasix TAB] 80 mg PO DAILY tablet 05/29/18 Unknown Rx Gabapentin [Neurontin] 800 mg PO BID capsule 05/29/18 Unknown Rx Isosorbide Dinitrate [Isordil 20 mg PO TID tablet 05/29/18 Unknown Rx Titradose] Labetalol [Normodyne TAB] 200 mg PO Q12HR tablet 05/29/18 Unknown Rx Multivitamin Tab W-MINERAL 1 each PO QDAY tablet 05/29/18 Unknown Rx [Multiple Vitamin/Mineral (Theragran M)] Phenytoin [Dilantin] 100 mg PO QID capsule.er 05/29/18 Unknown Rx Spironolactone [Aldactone] 25 mg PO BID tablet 05/29/18 Unknown Rx Tamsulosin [Flomax] 0.4 mg PO QDAY capsule 05/29/18 Unknown Rx Allergies Allergy/AdvReac Type Severity Reaction Status Date / Time No Known Allergies Allergy Verified 11/17/16 19:20 ED Review of Systems ROS: Stated complaint: POSS SEPSIS Other details as noted in HPI Comment: All other systems reviewed and negative Constitutional: chills Respiratory: denies: cough Cardiovascular: denies: chest pain Gastrointestinal: abdominal pain, nausea, diarrhea. denies: vomiting Neurological: headache ED Past Medical Hx - Past Medical History Previous Medical History?: Yes Hx Hypertension: Yes Hx CVA: Yes (IMPAIRED GAIT R/T CVA) Hx Congestive Heart Failure: No Hx Diabetes: Yes Hx Deep Vein Thrombosis: No Hx Renal Disease: Yes Hx Arthritis: Yes Hx Seizures: Yes Hx Asthma: No Hx COPD: No - Surgical History Past Surgical History?: Yes Hx Pacemaker: No Hx Internal Defibrillator: No Additional Surgical History: hernia - Social History Smoking Status: Never Smoker Substance Use Type: None - Medications Home Medications: Home Medications Medication Instructions Recorded Confirmed Last Taken Type Citalopram [celeXA] 10 mg PO QDAY 04/11/16 05/28/18 2 Days Ago History ~05/26/18 Gabapentin [Neurontin] 800 mg PO BID 04/11/16 05/28/18 2 Days Ago History ~05/26/18 Hydralazine HCl [Apresoline TAB] 50 mg PO Q8HR 04/11/16 05/28/18 2 Days Ago History ~05/26/18 Isosorbide Dinitrate [Isordil 20 mg PO TID 04/11/16 05/28/18 2 Days Ago History Titradose] ~05/26/18 Labetalol HCl 200 mg PO Q12H 04/11/16 05/28/18 2 Days Ago History ~05/26/18 Multivit-Min/Iron Fum/Folic AC 1 each PO DAILY 04/11/16 05/28/18 2 Days Ago History [Oaprz-Qplzlmu-Finnucvt Tablet] ~05/26/18 Potassium Chloride [Klor-Con 10] 10 meq PO DAILY 04/11/16 05/28/18 2 Days Ago History ~05/26/18 Protein Supplement [Promod] 30 ml PO BID 04/11/16 05/28/18 2 Days Ago History ~05/26/18 cloNIDine [Catapres] 0.2 mg PO QHS 04/11/16 05/28/18 2 Days Ago History ~05/26/18 Enoxaparin [Lovenox] 100 mg SUB-Q Q12HR #10 syringe 08/25/17 05/28/18 2 Days Ago Rx ~05/26/18 Furosemide [Lasix TAB] 80 mg PO DAILY@0600 #60 tablet 08/25/17 05/28/18 2 Days Ago Rx ~05/26/18 Haloperidol Lactate [Haldol] 2 mg IV Q6H PRN #30 vial 08/25/17 05/28/18 2 Days Ago Rx ~05/26/18 Multivitamin Tab W-MINERAL 1 each PO QDAY #30 tablet 08/25/17 05/28/18 2 Days Ago Rx [Multiple Vitamin/Mineral ~05/26/18 (Theragran M)] Potassium Chloride [K-Dur] 10 meq PO QDAY #30 tablet 08/25/17 05/28/18 2 Days Ago Rx ~05/26/18 Warfarin [Coumadin] 7.5 mg PO DAILY@1700 #30 tablet 08/25/17 05/28/18 2 Days Ago Rx ~05/26/18 hydrALAZINE [Apresoline TAB] 50 mg PO Q8HR #90 tablet 08/25/17 05/28/18 2 Days Ago Rx ~05/26/18 oxyCODONE /ACETAMINOPHEN [Percocet 1 tab PO Q6H PRN #60 tablet 08/25/17 05/28/18 2 Days Ago Rx 5/325 mg] ~05/26/18 Ciprofloxacin HCl [Cipro] 500 mg PO BID #28 tablet 05/29/18 Unknown Rx Furosemide [Lasix TAB] 80 mg PO DAILY tablet 05/29/18 Unknown Rx Gabapentin [Neurontin] 800 mg PO BID capsule 05/29/18 Unknown Rx Isosorbide Dinitrate [Isordil 20 mg PO TID tablet 05/29/18 Unknown Rx Titradose] Labetalol [Normodyne TAB] 200 mg PO Q12HR tablet 05/29/18 Unknown Rx Multivitamin Tab W-MINERAL 1 each PO QDAY tablet 05/29/18 Unknown Rx [Multiple Vitamin/Mineral (Theragran M)] Phenytoin [Dilantin] 100 mg PO QID capsule.er 05/29/18 Unknown Rx Spironolactone [Aldactone] 25 mg PO BID tablet 05/29/18 Unknown Rx Tamsulosin [Flomax] 0.4 mg PO QDAY capsule 05/29/18 Unknown Rx ED Physical Exam - General Limitations: Physical Limitation General appearance: lethargic - Head Head exam: Present: atraumatic, normocephalic - Eye Eye exam: Present: normal appearance - ENT ENT exam: Present: mucous membranes dry - Neck Neck exam: Present: normal inspection - Respiratory Respiratory exam: Present: normal lung sounds bilaterally. Absent: respiratory distress - Cardiovascular Cardiovascular Exam: Present: regular rate, normal rhythm - GI/Abdominal GI/Abdominal exam: Present: soft. 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) - Neurological Exam Neurological exam: Present: alert, oriented X3 - Psychiatric Psychiatric exam: Present: normal affect, normal mood - Skin Skin exam: Present: warm, dry, intact, normal color ED Course Vital Signs 06/28/18 06/28/18 06/29/18 23:12 23:20 01:35 Temperature 99.2 F Pulse Rate 78 77 75 Respiratory 14 12 11 L Rate Blood Pressure 88/58 Blood Pressure 88/58 107/71 96/60 [Left] O2 Sat by Pulse 93 99 98 Oximetry 06/29/18 02:36 Temperature 98.4 F Pulse Rate 76 Respiratory 13 Rate Blood Pressure Blood Pressure 93/53 [Left] O2 Sat by Pulse 98 Oximetry ED Medical Decision Making - Lab Data Result diagrams: 06/28/18 23:29 06/28/18 23:29 - EKG Data -: EKG Interpreted by Co EKG shows normal: sinus rhythm, axis, intervals, QRS complexes, ST-T waves - EKG Data Interpretation: no acute changes, other (prolonged QT) - Radiology Data Radiology results: report reviewed, image reviewed - Medical Decision Making 63-year-old male with low-grade temp, hypotension. Patient complaining of dizziness, likely due to low blood pressure. Patient was fluid resuscitated with normal saline, with improvement of blood pressure. WBC is normal, lactic acid normal. Patient reported abdominal pain, a UA shows UTI. CT scan negative for any acute abnormalities. BUN and creatinine show acute renal failure. There is mild elevation in troponin at 0.04, however patient denies chest pain and EKG shows no ST changes. Troponin elevation could be due to renal function. On exam patient also has lymphedema lower extremities with weeping wounds. Blood cultures and urine cultures sent, zosyn given. Patient admitted to hospitalist, Dr Arreola, for further evaluation. - Differential Diagnosis uti, pneumonia, cellulitis, diverticulitis, bowel obstruction Critical Care Time: Yes Critical care time in (mins) excluding proc time.: 35 Critical care attestation.: If time is entered above; I have spent that time in minutes in the direct care of this critically ill patient, excluding procedure time. Critical Care Time: 35 min ED Disposition Clinical Impression: Hypotension, Acute renal failure, UTI (urinary tract infection), Cellulitis of lower extremity Disposition: OP ADMIT IP TO THIS HOSP Is pt being admited?: Yes Condition: Stable Referrals: AMBER CRANDALL MD [Primary Care Provider] - 3-5 Days Time of Disposition: 02:07
[2018-06-28 23:49] LABS: Basophils # (Auto) 0.1 K/mm3 (0.0-0.1); Basophils % (Auto) 0.7 % (0.0-1.8); Eosinophils # (Auto) 0.1 K/mm3 (0.0-0.4); Eosinophils % (Auto) 0.9 % (0.0-4.3); Hematocrit 28.1 % (35.5-45.6); Hemoglobin 9.8 gm/dl (11.8-15.2); Lymphocytes # (Auto) 0.6 K/mm3 (1.2-5.4); Lymphocytes % (Auto) 5.6 % (13.4-35.0); Mean Corpuscular HGB Conc 35 % (32-34); Mean Corpuscular Volume 89 fl (84-94); Monocytes # (Auto) 1.1 K/mm3 (0.0-0.8); Platelet Count 151 K/mm3 (140-440); Red Blood Count 3.16 M/mm3 (3.65-5.03); Red Cell Distribution Width 15.4 % (13.2-15.2)
--- NOTE | 2018-06-29 00:03 | XRay Report ---
PROCEDURE: XR CHEST 1V AP TECHNIQUE: Chest radiograph single view. HISTORY: fever COMPARISONS: None . FINDINGS: Heart: Normal. Mediastinum/Vessels: Normal. Lungs/Pleural space: Lungs are expanded. There are no infiltrates, effusions or pneumothoraces.. Bony thorax: No acute osseous abnormality. Life support devices: None. IMPRESSION: No acute cardiopulmonary abnormality. This document is electronically signed by Srikanth Quiñonez MD., June 29 2018 12:01:45 AM ET
[2018-06-29 00:13] LABS: Albumin 2.9 g/dL (3.9-5); Calcium 9.6 mg/dL (8.4-10.2)
[2018-06-29 00:17] LABS: Amorphous Crystals,Urine 1+; Bacteria,Urine 2+ /HPF (Negative); Bilirubin,Urine NEG (Negative); Blood,Urine SM (Negative); Color,Urine Yellow (Yellow); Urobilinogen,Urine < 2.0 mg/dL (<2.0)
[2018-06-29 00:22] LABS: WBC,Urine > 182.0 /HPF (0.0-6.0)
[2018-06-29 00:50] LABS: INR 1.45 (0.87-1.13)
--- NOTE | 2018-06-29 02:04 | Cat Scan Report ---
PROCEDURE: CT ABDOMEN PELVIS WO CON TECHNIQUE: Computerized axial tomography of the abdomen and pelvis was performed without intravenous contrast. This study is performed without intravascular contrast material and its sensitivity for ab dominal and pelvic pathology, including neoplasms, inflammation, abscess, free fluid, thrombosis, art erial dissection and infarction, is reduced compared with a contrast enhanced study. CT DOSE LENGTH PRODUCT: 1443.7 mGycm HISTORY: abd pain COMPARISONS: None . FINDINGS: Visualized lower thorax: No significant abnormality. Liver: Normal size and attenuation. There are hypodense liver lesions measuring up to 2.6 cm suggesti ng cysts. Spleen: Normal size and attenuation. Gallbladder and biliary system: There is cholelithiasis. There is no cholecystitis or biliary ductal dilatation.. Pancreas: Normal. Adrenals: Normal. Kidneys: There are tiny stones in the left kidney. There is no hydronephrosis.. GI tract: There is no bowel obstruction, colitis or enteritis. The appendix is not discretely identi fied. There is no indirect evidence of appendicitis. . Lymph nodes and mesentery: Normal. Vasculature: There is an IVC filter.. Bladder: Normal. Reproductive organs: Normal. Peritoneum: There is no ascites or free air, abscess or adenopathy.. Musculoskeletal structures: No significant abnormality. Other: There are large varices in the anterior abdominal wall. This could be due to inferior vena ca va occlusion. IMPRESSION: There are hypodense liver lesions measuring up to 2.6 cm suggesting cysts. There is cholelithiasis. There is no cholecystitis or biliary ductal dilatation.. There are tiny stones in the left kidney. There is no hydronephrosis.. There is no bowel obstruction, colitis or enteritis. The appendix is not discretely identified. There is no indirect evidence of appendicitis. . There is an IVC filter.. 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 There is no ascites or free air, abscess or adenopathy.. There are large varices in the anterior abdominal wall. This could be due to inferior vena cava occlu delio. . This document is electronically signed by Srikanth Quiñonez MD., June 29 2018 02:01:29 AM ET
[2018-06-29 02:05] LABS: Chol/HDL Ratio 2.82 %
[2018-06-29] MEDS ORDERED: NACL 0.9% 1000 ML 1,000 ML IV ONE (02:38)
[2018-06-29] MEDS ORDERED: D50W (25GM) Syringe IV PRN (04:02)
[2018-06-29] MEDS ORDERED: ZOFRAN IV PRN (04:14)
[2018-06-29] MEDS ORDERED: HALDOL IV PRN (04:15)
[2018-06-29] MEDS: NACL 0.9% 1000 ML 1,000 ML IV SCH ×2 (05:54→23:16)
[2018-06-29] MEDS ORDERED: ZOSYN/NS 3.375GM/50ML 3.375 GM/50 ML BAG IV SCH (06:00)
[2018-06-29] MEDS ORDERED: ZOSYN/NS 2.25 GM/50ML 2.25 GM/50 ML BAG IV SCH (06:00)
--- NOTE | 2018-06-29 06:34 | History and Physical Report ---
CHIEF COMPLAINT: Abdominal pain. HISTORY OF PRESENT ILLNESS: The patient is a 63-year-old male [facility] because of complaint of abdominal pain. Also, there is history of chills, nausea, but no vomiting. Also, the patient complained of diarrhea and dizziness. There is no history of chest pain and no history of fever. The patient also complained of swelling in the right lower extremity. PAST MEDICAL HISTORY: The patient's past medical history is pertinent for hypertension, cerebrovascular accident with impairment in gait, also the patient has a past history of diabetes mellitus, arthritis, seizure disorder. PAST SURGICAL HISTORY: Pertinent for hernia repair. FAMILY HISTORY: Family history is noncontributory. SOCIAL HISTORY: The [facility] the [facility]. Does not smoke, does not drink alcohol and does not use illicit drugs. MEDICATIONS: The patient is on citalopram 10 mg by mouth daily, gabapentin 800 mg by mouth twice daily, Apresoline 50 mg by mouth every 8 hours, isosorbide dinitrate 20 mg by mouth 3 times daily, labetalol 200 mg by mouth every 12 hours, multivitamin with folic acid and minerals 1 by mouth daily, potassium chloride 10 mEq by mouth daily, potassium supplement ____ 30 mL by mouth twice daily, Catapres or clonidine 0.2 mg by mouth at bedtime. ALLERGIES: There are no known drug allergies. REVIEW OF SYSTEMS: CONSTITUTIONAL: There is no fever. There is chills and no diaphoresis. HEENT: There is no headache or sore throat. CARDIOVASCULAR SYSTEM: There is no chest pain or orthopnea. RESPIRATORY SYSTEM: There is no shortness of breath or cough. GASTROINTESTINAL SYSTEM: There is abdominal pain, nausea with no vomiting, but there is diarrhea and no constipation. NEUROLOGICAL SYSTEM: There is no numbness, but there is dizziness and low altered mental status. MUSCULOSKELETAL SYSTEM: There is swelling in the right lower extremity and there is right lower extremity joint pain. DERMATOLOGIC SYSTEM: There is swelling of the right lower extremity. There is excoriation of the skin of the right lower extremity. GENITOURINARY SYSTEM: There is no dysuria, no hematuria and no flank pain. Rest of system review is normal. PHYSICAL EXAMINATION: GENERAL: At the time of exam, the patient was found to be alert, oriented x 3 and not in acute distress. VITAL SIGNS: At the initial time of presentation showed temperature of 99.2 degrees Fahrenheit, pulse of 78, respirations 14, blood pressure 88/58, O2 sat of 93% on room air. HEENT: Showed pupils to be equal, round, reactive to light and accommodating. Extraocular muscles are intact. NECK: Supple with no JVD or carotid bruit. CARDIOVASCULAR SYSTEM: Show normal first and second heart sounds with no gallop or murmur. RESPIRATORY SYSTEM: Show good air entry in both sides of the lung with no abnormal breath sounds. GASTROINTESTINAL SYSTEM: Show abdomen to be full, soft, nontender with no organomegaly or rigidity. NEUROLOGIC: Shows no focal deficits. MUSCULOSKELETAL SYSTEM: Show swelling of the right lower extremity. DERMATOLOGIC SYSTEM: Show redness of the right lower extremity with excoriation of the skin. GENITOURINARY SYSTEM: Show no costovertebral angle tenderness. PERTINENT LABORATORY DATA AND IMAGING STUDIES: The patient had CT of the abdomen and pelvis without contrast done show hypodense liver lesions, measuring up to 2.6 cm suggesting cyst. Also, the patient has cholelithiasis with no evidence of cholecystitis or biliary duct dilatation. The patient has tiny stools in the left kidney with no hydronephrosis. There is no bowel obstruction, colitis or enteritis. Appendix is not discretely identified according to the radiologist and there is no indirect evidence of appendicitis. Also, there is finding of an IVC filter. 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 There is no ascites or free air or finding of abscess or adenopathy. Otherwise, there is report of large varices in the anterior abdominal wall, which the radiology states that could be due to inferior vena cava occlusion. Lab results: The patient has CBC done with normal white count with low hemoglobin of 9.8 and low hematocrit of 28.1 with CBC differential showing elevated segmental neutrophil count of 81.8%. The patient's coagulation studies show elevated PT of 18.6 and elevated INR of 1.45. The patient's chemistry show high BUN of 48 and high creatinine of 1.9 and the patient's troponin level is also elevated with a value of 0.046, albumin level is low with a value of 2.9. The patient's urinalysis shows yellow turbid urine with large urine leukocyte esterase and high urine wbc's of greater than 182 with 2+ bacteria. DIAGNOSES: 1. Acute kidney injury. 2. Urinary tract infection. 3. Cellulitis of the right lower extremity. 4. Hypertension. 5. Abdominal pain. 6. Elevated troponin level. PLAN OF CARE: 1. The patient will be admitted to [facility] on remote telemetry. 2. The patient will be on IV normal saline running at 125 mL an hour. 3. The patient will be on IV Zosyn 3.375 grams q. 8 hours. 4. The patient will have nephrology consult with Dr. Nicole for acute kidney injury and will have wound care nurse consult this morning for cellulitis of the lower extremity. 5. The patient will be on Accu-Chek a.c. and at bedtime followed by low dose sliding scale using regular insulin for coverage. 6. The patient will be on IV morphine 2 mg every 3 hours as needed for pain and IV Zofran 4 mg every 8 hours as needed for nausea and vomiting. 7. The patient's diet will be consistent carbohydrate 2 g sodium diet. 8. The patient will be on Tylenol 650 mg by mouth every 4 hours for fever and headache and will be on his home medications as shown in the medication reconciliation section. 9. The patient will be on heparin 5000 units subcutaneous q. 12 hours for DVT prophylaxis. JOB# [id number] OCN/NTS
[2018-06-29 06:54] LABS: Creatine Kinase MB 11.2 ng/mL (0.0-4.0)
[2018-06-29] MEDS: HumuLIN R SUB-Q SCH ×4 (07:52→23:54)
[2018-06-29] MEDS: NEURONTIN PO SCH ×2 (10:00→22:16)
[2018-06-29] MEDS: THERAGRAN-M Tab PO SCH (10:00)
[2018-06-29] MEDS: HEPARIN SUB-Q SCH ×2 (10:14→22:16)
[2018-06-29] MEDS ORDERED: ANTIVERT PO PRN (10:22)
--- NOTE | 2018-06-29 10:24 | Progress Note ---
Assessment and Plan Assessment and plan: Sepsis. Etiology secondary to UTI and right lower extremity cellulitis. Continue IV antibiotics and follow-up blood and urine cultures. Right lower extremity cellulitis/chronic wounds. Continue IV antibiotics. Patient with previous hospitalization in May of this year for infected right lower extremity chronic wounds. Consult surgery. UTI. Follow up urine and blood cultures. Acute kidney injury. Etiology likely secondary to ATN/sepsis. CT of abdomen and pelvis did not reveal any stones or obstruction. Check renal ultrasound. Nephrology consult. Baseline creatinine 1.10 May 2018. Abdominal pain. Etiology likely secondary to UTI. CT scan of the abdomen reveals hypodense liver lesions suggesting cysts. Cholelithiasis but no cholecystitis or biliary ductal dilatation. Hypertension. Resume antihypertensive medications. Elevated troponin. Patient denies chest pain. Etiology likely secondary to renal insufficiency and ? Type II WA from sepsis. Consider Cardiology consult ation. Patient has had chronically elevated troponin noted on previous hospitalizations as far back as 2016. Vertigo. Trial of meclizine. Lymphedema. Patient with chronic right lower extremity lymphedema. History of A. fib. Continue Coumadin. INR subtherapeutic. Coumadin protocol. Seizure disorder. Seizure precautions and continue AEDs. ? Peripheral vascular disease. BINH completed May 2018 revealed no evidence of significant arterial insufficiency in the right lower extremity. History Interval history: Patient reports dizziness but no abdominal pain. Hospitalist Physical - Constitutional Vitals: Temp Pulse Resp BP Pulse Ox 98.4 F 70 16 87/56 98 06/29/18 02:36 06/29/18 08:59 06/29/18 08:59 06/29/18 08:59 06/29/18 08:59 General appearance: Present: no acute distress, well-nourished - EENT Eyes: Present: PERRL, EOM intact ENT: hearing intact, clear oral mucosa, dentition normal - Neck Neck: Present: supple, normal ROM - Respiratory Respiratory effort: normal Respiratory: bilateral: CTA - Cardiovascular Rhythm: regular Heart Sounds: Present: S1 & S2. Absent: gallop, rub - Extremities Extremities: no ischemia, No edema, Full ROM - Abdominal General gastrointestinal: soft, non-tender, non-distended, normal bowel sounds - Integumentary Integumentary: Present: clear, warm, dry - Neurologic Neurologic: CNII-XII intact, moves all extremities Results - Labs CBC & Chem 7: 04/20/19 23:29 06/28/18 23: Labs: Laboratory Last Values WBC 9.9 K/mm3 (4.5-11.0) 06/28/18: RBC 3.16 M/mm3 (3.65-5.03) L 06/28/18 23: Hgb 9.8 gm/dl (11.8-15.2) L 06/28/18: Hct 28.1 % (35.5-45.6) L 06/28/18: MCV 89 fl (84-94) 06/28/18 23: MCH 31 pg (28-32) 06/28/18: MCHC 35 % (32-34) H 06/28/18: RDW 15.4 % (13.2-15.2) H 06/28/18: Plt Count 151 K/mm3 (140-440) 06/28/18: Lymph % (Auto) 5.6 % (13.4-35.0) L 06/28/18: Major % (Auto) 11.0 % (0.0-7.3) H 06/28/18: Eos % (Auto) 0.9 % (0.0-4.3) 06/28/18: Baso % (Auto) 0.7 % (0.0-1.8) 06/28/18: Lymph # 0.6 K/mm3 (1.2-5.4) L 06/28/18: Major # 1.1 K/mm3 (0.0-0.8) H 06/28/18: Eos # 0.1 K/mm3 (0.0-0.4) 06/28/18: Baso # 0.1 K/mm3 (0.0-0.1) 06/28/18: Seg Neutrophils % 81.8 % (40.0-70.0) H 06/28/18: Seg Neutrophils # 8.1 K/mm3 (1.8-7.7) H 06/28/18: PT 18.6 Sec. (12.2-14.9) H 04/20/19 23:29 INR 1.45 (0.87-1.13) H 06/28/18 23:29 APTT 41.7 Sec. (24.2-36.6) H 06/28/18 23:29 Sodium 136 mmol/L (137-145) L 06/28/18 23:29 Potassium 4.5 mmol/L (3.6-5.0) 06/28/18 23:29 Chloride 98.5 mmol/L (98-107) 06/28/18 23:29 Carbon Dioxide 22 mmol/L (22-30) 06/28/18 23:29 Anion Gap 20 mmol/L 06/28/18 23:29 BUN 48 mg/dL (9-20) H 06/28/18 23:29 Creatinine 1.9 mg/dL (0.8-1.5) H 06/28/18 23:29 Estimated GFR 43 ml/min 06/28/18 23:29 BUN/Creatinine Ratio 25 % 06/28/18 23:29 Glucose 103 mg/dL (75-100) H 06/28/18 23:29 POC Glucose 99 (70-105) 06/29/18 07:52 Lactic Acid 0.80 mmol/L (0.7-2.0) 06/29/18 02:19 Calcium 9.6 mg/dL (8.4-10.2) 06/28/18 23:29 Total Bilirubin 0.60 mg/dL (0.1-1.2) 06/28/18 23:29 AST 26 units/L (5-40) 06/28/18 23:29 ALT 13 units/L (7-56) 06/28/18 23:29 Alkaline Phosphatase 127 units/L (35-129) 06/28/18 23:29 Total Creatine Kinase 1080 units/L (55-170) H 06/29/18 05:57 CK-MB (CK-2) 11.2 ng/mL (0.0-4.0) H 06/29/18 05:57 CK-MB (CK-2) Rel Index 1.0 (0-4) 06/29/18 05:57 Troponin T 0.038 ng/mL (0.00-0.029) H 06/29/18 05:57 Total Protein 8.0 g/dL (6.3-8.2) 06/28/18 23:29 Albumin 2.9 g/dL (3.9-5) L 06/28/18 23:29 Albumin/Globulin Ratio 0.6 % 06/28/18 23:29 Triglycerides 93 mg/dL (2-149) 06/28/18 23:29 Cholesterol 110 mg/dL (50-199) 06/28/18 23:29 LDL Cholesterol Direct 57 mg/dL (50-130) 06/28/18 23: HDL Cholesterol 39 mg/dL (40-59) L 06/28/18 23: Cholesterol/HDL Ratio 2.82 % 06/28/18 23: Lipase 15 units/L (13-60) 06/28/18 23:29 Urine Color Yellow (Yellow) 06/28/18 23:40 Urine Turbidity Turbid (Clear) 06/28/18 23:40 Urine pH 5.0 (5.0-7.0) 06/28/18 23:40 Ur Specific Mcclure 1.023 (1.003-1.030) 06/28/18 23:40 Urine Protein 30 mg/dl mg/dL (Negative) 06/28/18 23:40 Urine Glucose (UA) Neg mg/dL (Negative) 06/28/18 23:40 Urine Ketones Neg mg/dL (Negative) 06/28/18 23:40 Urine Blood Sm (Negative) 06/28/18 23:40 Urine Nitrite Pos (Negative) 06/28/18 23:40 Urine Bilirubin Neg (Negative) 06/28/18 23:40 Urine Urobilinogen < 2.0 mg/dL (<2.0) 06/28/18 23:40 Ur Leukocyte Esterase Lg (Negative) 06/28/18 23:40 Urine WBC (Auto) > 182.0 /HPF (0.0-6.0) H 06/28/18 23:40 Urine RBC (Auto) 13.0 /HPF (0.0-6.0) 06/28/18 23:40 U Epithel Cells (Auto) 1.0 /HPF (0-13.0) 06/28/18 23:40 Urine Bacteria (Auto) 2+ /HPF (Negative) 06/28/18 23:40 Urine WBC Clumps 3+ /HPF 06/28/18 23:40 Amorphous Crystals 1+ 06/28/18 23:40 Active Medications - Current Medications Current Medications: Generic Name Dose Route Start Last Admin Trade Name Freq PRN Reason Stop Dose Admin Acetaminophen 650 mg 06/29/18 04:06 Tylenol PO Q4H PRN Fever >101 Citalopram Hydrobromide 10 mg 06/29/18 10:00 Celexa PO QDAY [facility] Clonidine HCl 0.2 mg 06/29/18 22:00 Catapres PO QHS [facility] Dextrose 50 ml 06/29/18 04:02 D50w (25gm) Syringe IV PRN PRN Hypoglycemia Gabapentin 800 mg 06/29/18 10:00 Neurontin PO BID [facility] Haloperidol Lactate 2 mg 06/29/18 04:15 Haldol IV Q6H PRN Agitation Heparin Sodium (Porcine) 5,000 unit 06/29/18 10:00 Heparin SUB-Q Q12HR [facility] Sodium Chloride 1,000 mls @ 125 mls/hr 06/29/18 05:00 06/29/18 05:54 Nacl 0.9% 1000 Ml IV 125 mls/hr DIRECT [facility] Administration Piperacillin Sod/Tazobactam Sod 4.5 gm in 100 mls @ 200 mls/hr 06/29/18 14:00 Zosyn/Ns 4.5gm/100ml IV Q8HR [facility] Insulin Human Regular 0 units 06/29/18 07:30 06/29/18 07:52 Humulin R SUB-Q Not Given [facility] Protocol Insulin Human Regular 0 units 06/29/18 22:00 Humulin R SUB-Q QHS [facility] Protocol Morphine Sulfate 2 mg 06/29/18 04:40 Morphine IV Q3H PRN Pain, Moderate (4-6) Multivitamins/Minerals 1 each 06/29/18 10:00 Theragran-M Tab PO DAILY [facility] Ondansetron HCl 4 mg 06/29/18 04:14 Zofran IV Q8H PRN Nausea And Vomiting
[2018-06-29] MEDS ORDERED: celeXA ONE (10:37)
[2018-06-29] MEDS ORDERED: NEURONTIN ONE (10:37)
[2018-06-29] MEDS ORDERED: THERAGRAN Tab PO ONE (10:37)
[2018-06-29] MEDS ORDERED: HEPARIN ONE (10:38)
--- NOTE | 2018-06-29 12:34 | Consultation ---
History of Present Illness - Reason for Consult Consult date: 06/29/18 acute renal failure Requesting physician: CARLOS A GONSALEZ - History of Present Illness This is a 63 y/o M with PMH of AFib on warfarin per pt, HTN, hx of CVA, Left BKA, and RLE lymphedema who presented to [facility] with c/o dizziness, fever, RLE pain, and hypotension. 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 CXR showed no acute cardiopulmonary findings. Pt started on IV fluids and on antibiotics for possible UTI and right lower extremity cellulitis. We were consulted to evaluate this pt who has abnormal renal function. Pt states he takes lasix at home. Pt reports taking ibuprofen (two tablets) once a day for about 1 month for RLE pain. Pt states having RLE wound for about 3 months, but hasn't sought treatment until this admission. Pt denies antibiotics prior to this admission.Pt seen in the ED. . Past History Past Medical History: atrial fib, hypertension, stroke Past Surgical History: Other (Left BKA) Medications and Allergies Allergies Allergy/AdvReac Type Severity Reaction Status Date / Time No Known Allergies Allergy Verified 11/17/16 19:20 Home Medications Medication Instructions Recorded Confirmed Last Taken Type Citalopram [celeXA] 10 mg PO QDAY 04/11/16 06/29/18 2 Days Ago History ~05/26/18 Isosorbide Dinitrate [Isordil 20 mg PO TID 04/11/16 06/29/18 2 Days Ago History Titradose] ~05/26/18 cloNIDine [Catapres] 0.2 mg PO QHS 04/11/16 06/29/18 2 Days Ago History ~05/26/18 Potassium Chloride [K-Dur] 10 meq PO QDAY #30 tablet 08/25/17 06/29/18 2 Days Ago Rx ~05/26/18 hydrALAZINE [Apresoline TAB] 50 mg PO Q8HR #90 tablet 08/25/17 06/29/18 2 Days Ago Rx ~05/26/18 oxyCODONE /ACETAMINOPHEN [Percocet 1 tab PO Q6H PRN #60 tablet 08/25/17 06/29/18 2 Days Ago Rx 5/325 mg] ~05/26/18 Furosemide [Lasix TAB] 80 mg PO DAILY tablet 05/29/18 06/29/18 Unknown Rx Gabapentin [Neurontin] 800 mg PO BID capsule 05/29/18 06/29/18 Unknown Rx Labetalol [Normodyne TAB] 200 mg PO Q12HR tablet 05/29/18 06/29/18 Unknown Rx Multivitamin Tab W-MINERAL 1 each PO QDAY tablet 05/29/18 06/29/18 Unknown Rx [Multiple Vitamin/Mineral (Theragran M)] Spironolactone [Aldactone] 25 mg PO BID tablet 05/29/18 06/29/18 Unknown Rx Tamsulosin [Flomax] 0.4 mg PO QDAY capsule 05/29/18 06/29/18 Unknown Rx Apixaban [Eliquis] 2.5 mg PO BID 06/29/18 06/29/18 Unknown History Active Meds: Active Medications Acetaminophen (Tylenol) 650 mg PO Q4H PRN PRN Reason: Fever >101 Citalopram Hydrobromide (Celexa) 10 mg PO QDAY [facility] Clonidine HCl (Catapres) 0.2 mg PO QHS [facility] Dextrose (D50w (25gm) Syringe) 50 ml IV PRN PRN PRN Reason: Hypoglycemia Gabapentin (Neurontin) 800 mg PO BID [facility] Haloperidol Lactate (Haldol) 2 mg IV Q6H PRN PRN Reason: Agitation Heparin Sodium (Porcine) (Heparin) 5,000 unit SUB-Q Q12HR [facility] Sodium Chloride (Nacl 0.9% 1000 Ml) 1,000 mls @ 125 mls/hr IV DIRECT [facility] Last Admin: 06/29/18 05:54 Dose: 125 mls/hr Documented by: Piperacillin Sod/Tazobactam Sod (Zosyn/Ns 4.5gm/100ml) 4.5 gm in 100 mls @ 200 mls/hr IV Q8HR [facility] Insulin Human Regular (Humulin R) 0 units SUB-Q AC [facility]; Protocol Last Admin: 06/29/18 07:52 Dose: Not Given Documented by: Insulin Human Regular (Humulin R) 0 units SUB-Q QHS [facility]; Protocol Meclizine HCl (Antivert) 25 mg PO Q8H PRN PRN Reason: Vertigo Morphine Sulfate (Morphine) 2 mg IV Q3H PRN PRN Reason: Pain, Moderate (4-6) Multivitamins/Minerals (Theragran-M Tab) 1 each PO DAILY [facility] Ondansetron HCl (Zofran) 4 mg IV Q8H PRN PRN Reason: Nausea And Vomiting Warfarin Sodium (Coumadin) 7.5 mg PO DAILY@1700 [facility] Review of Systems Constitutional: fever, fatigue, weakness Cardiovascular: leg edema, no chest pain, no shortness of breath Respiratory: no shortness of breath, no dyspnea on exertion Gastrointestinal: abdominal pain, nausea, vomiting, diarrhea, no constipation, no melena Genitourinary Male: no dysuria, no hematuria Musculoskeletal: shooting leg pain, prior amputations Integumentary: sores, wounds Neurological: weakness, vertigo, other (dizziness) Endocrine: fatigue Exam - Vital Signs Vital signs: Vital Signs Temp Pulse Resp BP Pulse Ox 99.2 F 78 14 88/58 93 06/28/18 23:12 06/28/18 23:12 06/28/18 23:12 06/28/18 23:12 06/28/18 23:12 - General Appearance General appearance: other (awake) EENT: ATNC Neck: Present: neck supple Respiratory: Decreased Breath Sounds Heart: regular, S1S2 Gastrointestinal: Present: normoactive bowel sounds Integumentary: other (right lower extremity wounds noted) Neurologic: alert and oriented x3, other (Pt reports hx of CVA, moves all 4 ext remities, but left upper and lower extremities are weaker than right) Musculoskeletal: Present: other (Right lower extremity skin wounds noted; Left BKA) Psychiatric: cooperative Results - Lab Results 06/29/18 13:34 06/28/18 23:29 Most recent lab results Calcium 9.6 mg/dL (8.4-10.2) 06/28/18 23:29 Assessment and Plan Sepsis: Possible Right Lower Extremity Cellulitis: - Possible UTI - Started on IV fluids and antibiotics - Follow cultures - Gen Surgery consulted, f/u recs Acute Kidney Injury possibly secondary to prerenal/ATN, vomiting, diarrhea, diuretics, hypotension, questionable underlying CKD process, questionable AIN from NSAIDs, no hydronephrosis: Left Kidney Nephrolithiasis: -Renal function reviewed, SCr level was 1.9 today -Review of labs from [id number] showed SCr level between 0.8-1.3 -No obstruction noted on CT scan -Started on 0.9% NS infusion at 125 ml/hr -D/C clonidine 0.2 mg at bedtime for now given hypotension -Check PTH and phosphorus -Obtain urine lytes/protein -Check urine eosinophils -Avoid NSAIDs -Renally dose meds -Holding lasix for now -Paz Catheter: No -Renal plan d/w Dr Floyd Hypotension: Hx of Hypertension: - Hold all BP medications for now - Monitor blood pressure closely - Started on 0.9% NS infusion at 125 ml/hr Anemia: - Obtain iron studies - Monitor History of Atrial Fibrillation: - On warfarin - As per primary Vertigo: - On Meclizine Hx of CVA with residual left sided weakness: - As per primary
[2018-06-29] MEDS: celeXA PO SCH (13:14)
[2018-06-29 13:40] LABS: Hematocrit 28.8 % (35.5-45.6); Hemoglobin 9.8 gm/dl (11.8-15.2); Mean Corpuscular HGB Conc 34 % (32-34); Mean Corpuscular Volume 90 fl (84-94); Platelet Count 160 K/mm3 (140-440); Red Blood Count 3.21 M/mm3 (3.65-5.03); Red Cell Distribution Width 15.1 % (13.2-15.2)
[2018-06-29] MEDS ORDERED: ZOSYN/NS 4.5GM/100ML 4.5 GM/100 ML VIAL IV ONE (13:49)
[2018-06-29] MEDS ORDERED: NACL 0.9% 1000 ML 1,000 ML ONE (13:49)
[2018-06-29] MEDS: ZOSYN/NS 4.5GM/100ML 4.5 GM/100 ML VIAL IV SCH ×2 (13:50→22:15)
[2018-06-29 13:59] LABS: Creatine Kinase MB 7.6 ng/mL (0.0-4.0)
[2018-06-29 14:42] LABS: Calcium 8.9 mg/dL (8.4-10.2)
[2018-06-29] MEDS ORDERED: PNEUMOVAX 23 IM ONE (16:00)
[2018-06-29] MEDS ORDERED: AFLURIA QUAD 2018-2019 SYRINGE IM ONE (16:00)
[2018-06-29] MEDS: COUMADIN PO SCH (18:39)
[2018-06-29] MEDS: TYLENOL PO PRN (18:39)
[2018-06-29] MEDS ORDERED: VANCOMYCIN/NS 1 GM/250 ML 1 GM/250 ML BAG IV SCH (20:00)
[2018-06-29] MEDS ORDERED: VANCOMYCIN 1,500 MG in NACL 0.9% 500 ML 500 ML IV ONE (20:00)
[2018-06-29 20:34] LABS: Chloride, Urine 73.9 mmolL (110-250)
[2018-06-29 22:00] LABS: Microalbumin/Creatinine Ratio 37.3 ug/mg
[2018-06-29] MEDS ORDERED: CATAPRES PO SCH (22:00)
[2018-06-30] MEDS: MORPHINE IV PRN ×2 (04:49→22:50)
[2018-06-30] MEDS: ZOSYN/NS 4.5GM/100ML 4.5 GM/100 ML VIAL IV SCH ×3 (05:00→21:49)
[2018-06-30 06:05] LABS: Basophils % (Auto) 0.5 % (0.0-1.8); Eosinophils # (Auto) 0.1 K/mm3 (0.0-0.4); Eosinophils % (Auto) 1.5 % (0.0-4.3); Hematocrit 27.8 % (35.5-45.6); Hemoglobin 9.6 gm/dl (11.8-15.2); Lymphocytes # (Auto) 0.7 K/mm3 (1.2-5.4); Lymphocytes % (Auto) 10.5 % (13.4-35.0); Mean Corpuscular HGB Conc 35 % (32-34); Mean Corpuscular Volume 90 fl (84-94); Monocytes # (Auto) 0.8 K/mm3 (0.0-0.8); Monocytes % (Auto) 12.4 % (0.0-7.3); Platelet Count 165 K/mm3 (140-440); Red Blood Count 3.09 M/mm3 (3.65-5.03); Red Cell Distribution Width 15.2 % (13.2-15.2)
[2018-06-30 06:10] LABS: INR 1.34 (0.87-1.13)
[2018-06-30] MEDS: TYLENOL PO PRN (06:18)
[2018-06-30 06:42] LABS: BUN/Creatinine Ratio 20; Blood Urea Nitrogen 22 mg/dL (9-20); Calcium 8.6 mg/dL (8.4-10.2); Hemolysis Index 0
[2018-06-30] MEDS: HumuLIN R SUB-Q SCH ×4 (08:00→22:09)
[2018-06-30] MEDS ORDERED: TUMS PO PRN ×2 (08:40→11:00)
[2018-06-30] MEDS ORDERED: TUMS PO ONE (09:15)
[2018-06-30] MEDS: NEURONTIN PO SCH ×2 (09:51→21:49)
[2018-06-30] MEDS: THERAGRAN-M Tab PO SCH (09:52)
[2018-06-30] MEDS: HEPARIN SUB-Q SCH ×2 (09:52→21:50)
[2018-06-30] MEDS: celeXA PO SCH (09:52)
--- NOTE | 2018-06-30 10:41 | Progress Note ---
Assessment and Plan Assessment and plan: Sepsis. Etiology secondary to UTI and right lower extremity cellulitis. Continue IV antibiotics and follow-up blood and urine cultures. Right lower extremity cellulitis/chronic wounds. Continue IV antibiotics. Patient with previous hospitalization in May of this year for infected right lower extremity chronic wounds. Consulted surgery. UTI. Follow up urine and blood cultures. Acute kidney injury. Etiology likely secondary to ATN/sepsis. CT of abdomen and pelvis did not reveal any stones or obstruction. Check renal ultrasound. Nephrology consulted. Baseline creatinine 1.10 May 2018. Abdominal pain. Etiology likely secondary to UTI. CT scan of the abdomen reveals hypodense liver lesions suggesting cysts. Cholelithiasis but no cholecystitis or biliary ductal dilatation. Hypertension. Resume antihypertensive medications. Elevated troponin. Patient denies chest pain. Etiology likely secondary to renal insufficiency and ? Type II SD from sepsis. Consider Cardiology con sultation. Patient has had chronically elevated troponin noted on previous hospitalizations as far back as 2017. Vertigo. Trial of meclizine. Lymphedema. Patient with chronic right lower extremity lymphedema. History of A. fib. Continue Coumadin. INR subtherapeutic. Coumadin protocol. Seizure disorder. Seizure precautions and continue AEDs. ? Peripheral vascular disease. BINH completed May 2018 revealed no evidence of significant arterial insufficiency in the right lower extremity. History Interval history: Patient reports dizziness but no abdominal pain. Hospitalist Physical - Constitutional Vitals: Temp Pulse Resp BP Pulse Ox 99.1 F 78 18 119/70 95 06/30/18 04:20 06/30/18 04:20 06/30/18 04:20 06/30/18 04:20 06/30/18 04:20 General appearance: Present: no acute distress, well-nourished - EENT Eyes: Present: PERRL, EOM intact ENT: hearing intact, clear oral mucosa, dentition normal - Neck Neck: Present: supple, normal ROM - Respiratory Respiratory effort: normal Respiratory: bilateral: CTA - Cardiovascular Rhythm: regular Heart Sounds: Present: S1 & S2. Absent: gallop, rub - Extremities Extremities: no ischemia, No edema, Full ROM - Abdominal General gastrointestinal: soft, non-tender, non-distended, normal bowel sounds - Integumentary Integumentary: Present: clear, warm, dry - Neurologic Neurologic: CNII-XII intact, moves all extremities Results - Labs CBC & Chem 7: 04/22/19 05:45 06/30/18 05:45 Labs: Laboratory Last Values WBC 6.7 K/mm3 (4.5-11.0) 06/30/18 05:45 RBC 3.09 M/mm3 (3.65-5.03) L 06/30/18 05:45 Hgb 9.6 gm/dl (11.8-15.2) L 06/30/18 05:45 Hct 27.8 % (35.5-45.6) L 06/30/18 05:45 MCV 90 fl (84-94) 06/30/18 05:45 MCH 31 pg (28-32) 06/30/18 05:45 MCHC 35 % (32-34) H 06/30/18 05:45 RDW 15.2 % (13.2-15.2) 06/30/18 05:45 Plt Count 165 K/mm3 (140-440) 06/30/18 05:45 Lymph % (Auto) 10.5 % (13.4-35.0) L 06/30/18 05:45 [place] % (Auto) 12.4 % (0.0-7.3) H 06/30/18 05:45 Eos % (Auto) 1.5 % (0.0-4.3) 06/30/18 05:45 Baso % (Auto) 0.5 % (0.0-1.8) 06/30/18 05:45 Lymph # 0.7 K/mm3 (1.2-5.4) L 06/30/18 05:45 [place] # 0.8 K/mm3 (0.0-0.8) 06/30/18 05:45 Eos # 0.1 K/mm3 (0.0-0.4) 06/30/18 05:45 Baso # 0.0 K/mm3 (0.0-0.1) 06/30/18 05:45 Seg Neutrophils % 75.1 % (40.0-70.0) H 06/30/18 05:45 Seg Neutrophils # 5.0 K/mm3 (1.8-7.7) 06/30/18 05:45 PT 17.4 Sec. (12.2-14.9) H 06/30/18 05:45 INR 1.34 (0.87-1.13) H 06/30/18 05:45 APTT 41.7 Sec. (24.2-36.6) H 06/28/18 23:29 Sodium 141 mmol/L (137-145) 06/30/18 05:45 Potassium 4.2 mmol/L (3.6-5.0) 06/30/18 05:45 Chloride 108.4 mmol/L (98-107) H 06/30/18 05:45 Carbon Dioxide 21 mmol/L (22-30) L 06/30/18 05:45 Anion Gap 16 mmol/L 06/30/18 05:45 BUN 22 mg/dL (9-20) H 06/30/18 05:45 Creatinine 1.1 mg/dL (0.8-1.5) 06/30/18 05:45 Estimated GFR > 60 ml/min 06/30/18 05:45 BUN/Creatinine Ratio 20 % 06/30/18 05:45 Glucose 81 mg/dL (75-100) 06/30/18 05:45 POC Glucose 95 (70-105) 06/30/18 07:37 Lactic Acid 0.80 mmol/L (0.7-2.0) 06/29/18 02:19 Calcium 8.6 mg/dL (8.4-10.2) 06/30/18 05:45 Total Bilirubin 0.60 mg/dL (0.1-1.2) 06/28/18 23:29 AST 26 units/L (5-40) 06/28/18 23:29 ALT 13 units/L (7-56) 06/28/18 23:29 Alkaline Phosphatase 127 units/L (35-129) 06/28/18 23:29 Total Creatine Kinase 877 units/L (55-170) H 06/29/18 13:21 CK-MB (CK-2) 7.6 ng/mL (0.0-4.0) H 06/29/18 13:21 CK-MB (CK-2) Rel Index 0.8 (0-4) 06/29/18 13:21 Troponin T 0.035 ng/mL (0.00-0.029) H 06/29/18 13:21 Total Protein 8.0 g/dL (6.3-8.2) 06/28/18 23:29 Albumin 2.9 g/dL (3.9-5) L 06/28/18 23:29 Albumin/Globulin Ratio 0.6 % 06/28/18 23:29 Triglycerides 93 mg/dL (2-149) 06/28/18 23:29 Cholesterol 110 mg/dL (50-199) 06/28/18 23:29 LDL Cholesterol Direct 57 mg/dL (50-130) 06/28/18 23: HDL Cholesterol 39 mg/dL (40-59) L 06/28/18 23: Cholesterol/HDL Ratio 2.82 % 06/28/18 23: Lipase 15 units/L (13-60) 06/28/18 23:29 Urine Color Yellow (Yellow) 06/28/18 23:40 Urine Turbidity Turbid (Clear) 06/28/18 23:40 Urine pH 5.0 (5.0-7.0) 06/28/18 23:40 Ur Specific [place] 1.023 (1.003-1.030) 06/28/18 23:40 Urine Protein 30 mg/dl mg/dL (Negative) 06/28/18 23:40 Urine Glucose (UA) Neg mg/dL (Negative) 06/28/18 23:40 Urine Ketones Neg mg/dL (Negative) 06/28/18 23:40 Urine Blood Sm (Negative) 06/28/18 23:40 Urine Nitrite Pos (Negative) 06/28/18 23:40 Urine Bilirubin Neg (Negative) 06/28/18 23:40 Urine Urobilinogen < 2.0 mg/dL (<2.0) 06/28/18 23:40 Ur Leukocyte Esterase Lg (Negative) 06/28/18 23:40 Urine WBC (Auto) > 182.0 /HPF (0.0-6.0) H 06/28/18 23:40 Urine RBC (Auto) 13.0 /HPF (0.0-6.0) 06/28/18 23:40 U Epithel Cells (Auto) 1.0 /HPF (0-13.0) 06/28/18 23:40 Urine Bacteria (Auto) 2+ /HPF (Negative) 06/28/18 23:40 Urine WBC Clumps 3+ /HPF 06/28/18 23:40 Amorphous Crystals 1+ 06/28/18 23:40 Urine Eosinophils None seen (None Seen) 06/29/18 Unknown Urine Creatinine 83.0 mg/dL (0.1-20.0) H 06/29/18 Unknown Urine Microalbumin 3.1 mg/dL (0.1-34.0) 06/29/18 Unknown Microalb/Creat Ratio 37.3 ug/mg 06/29/18 Unknown Urine Sodium 93 mmol/L 06/29/18 Unknown Urine Chloride 73.9 mmolL (110-250) L 06/29/18 Unknown Urine Total Protein 71 mg/dL (5-11.8) H 06/29/18 Unknown Active Medications - Current Medications Current Medications: Generic Name Dose Route Start Last Admin Trade Name Freq PRN Reason Stop Dose Admin Acetaminophen 650 mg 06/29/18 04:06 06/30/18 06:18 Tylenol PO 650 mg Q4H PRN Administration Fever >101 Calcium Carbonate/Glycine 500 mg 06/30/18 11:00 Tums PO Q4H PRN Indigestion Citalopram Hydrobromide 10 mg 06/29/18 10:00 06/30/18 09:52 Celexa PO 10 mg QDAY [facility]I Administration Dextrose 50 ml 06/29/18 04:02 D50w (25gm) Syringe IV PRN PRN Hypoglycemia Gabapentin 800 mg 06/29/18 10:00 06/30/18 09:51 Neurontin PO 800 mg BID DAVI Administration Haloperidol Lactate 2 mg 06/29/18 04:15 Haldol IV Q6H PRN Agitation Heparin Sodium (Porcine) 5,000 unit 06/29/18 10:00 06/30/18 09:52 Heparin SUB-Q 5,000 unit Q12HR DAVI Administration Sodium Chloride 1,000 mls @ 125 mls/hr 06/29/18 05:00 06/29/18 23:16 Nacl 0.9% 1000 Ml IV 125 mls/hr DIRECT DAVI Administration Piperacillin Sod/Tazobactam Sod 4.5 gm in 100 mls @ 200 mls/hr 06/29/18 14:00 06/30/18 05:00 Zosyn/Ns 4.5gm/100ml IV 200 mls/hr Q8HR [facility]I Administration Vancomycin HCl 1 gm in 250 mls @ 166.667 mls/hr 06/30/18 12:00 Vancomycin/Ns 1 Gm/250 Ml IV Q12H [facility] Insulin Human Regular 0 units 06/29/18 07:30 06/30/18 08:00 Humulin R SUB-Q Not Given AC [facility] Protocol Insulin Human Regular 0 units 06/29/18 22:00 06/29/18 23:54 Humulin R SUB-Q Not Given QHS [facility] Protocol Meclizine HCl 25 mg 06/29/18 10:22 Antivert PO Q8H PRN Vertigo Morphine Sulfate 2 mg 06/29/18 04:40 06/30/18 04:49 Morphine IV 2 mg Q3H PRN Administration Pain, Moderate (4-6) Multivitamins/Minerals 1 each 06/29/18 10:00 06/30/18 09:52 Theragran-M Tab PO 1 each DAILY [facility] Administration Ondansetron HCl 4 mg 06/29/18 04:14 Zofran IV Q8H PRN Nausea And Vomiting Warfarin Sodium 7.5 mg 06/29/18 17:00 06/29/18 18:39 Coumadin PO 7.5 mg DAILY@1700 [facility] Administration
[2018-06-30] MEDS: NACL 0.9% 1000 ML 1,000 ML IV SCH ×2 (11:00→20:23)
--- NOTE | 2018-06-30 12:14 | Progress Note ---
Assessment and Plan Sepsis: Possible Right Lower Extremity Cellulitis: - Possible UTI - Started on IV fluids and antibiotics - Follow cultures - Gen Surgery consulted, f/u recs Acute Kidney Injury possibly secondary to prerenal/ATN, vomiting, diarrhea, diuretics, hypotension, questionable underlying CKD process, questionable AIN from NSAIDs, no hydronephrosis: Left Kidney Nephrolithiasis: -Renal function reviewed, SCr level was 1.1 today, yesterday's SCr level was 1.5 -Review of labs from [id number] showed SCr level between 0.8-1.3 -No obstruction noted on CT scan -Started on 0.9% NS infusion at 125 ml/hr -D/C clonidine 0.2 mg at bedtime for now given hypotension -Urine eosinophils showed none seen -Avoid NSAIDs -Renally dose meds -Holding lasix for now -Paz Catheter: No -Renal plan d/w Dr Floyd Hypotension: Hx of Hypertension: - Hold all BP medications for now - Monitor blood pressure closely - On 0.9% NS infusion at 125 ml/hr Anemia: - Check iron studies - Monitor History of Atrial Fibrillation: - On warfarin - As per primary Vertigo: - On Meclizine Hx of CVA with residual left sided weakness: - As per primary Subjective Date of service: 06/30/18 Interval history: Pt seen in bed, currently getting wound care to RLE wounds. Pt denies shortness of breath or pain at this time. No family at bedside Objective - Vital Signs Vital signs: Vital Signs - 12hr 06/30/18 06/30/18 02:18 04:20 Temperature 99.1 F Pulse Rate 78 Pulse Rate [ 78 Right Radial] Respiratory 20 18 Rate Blood Pressure 119/70 O2 Sat by Pulse 96 95 Oximetry - General Appearance General appearance: well-developed EENT: ATNC Neck: no JVD Respiratory: Present: Decreased Breath Sounds Cardiology: S1S2 Gastrointestinal: normoactive bowel sounds, no tenderness Integumentary: skin tear, other (RLE skin wounds noted) Neurologic: other (awake, oriented to person, place, but not time, follows simple commands) Musculoskeletal: other (Left BKA; Right lower extremity skin wounds) Psychiatric: cooperative - Lab 06/30/18 05:45 06/30/18 05:45 Most recent lab results Calcium 8.6 mg/dL (8.4-10.2) 06/30/18 05:45 Urine Creatinine 83.0 mg/dL (0.1-20.0) H 06/29/18 Unknown Urine Sodium 93 mmol/L 06/29/18 Unknown Urine Total Protein 71 mg/dL (5-11.8) H 06/29/18 Unknown Medications & Allergies - Medications Allergies/Adverse Reactions: Allergies No Known Allergies Allergy (Verified 11/17/16 19:20) Home Medications: Home Medications Medication Instructions Recorded Confirmed Last Taken Type Citalopram [celeXA] 10 mg PO QDAY 04/11/16 06/29/18 2 Days Ago History ~05/26/18 Isosorbide Dinitrate [Isordil 20 mg PO TID 04/11/16 06/29/18 2 Days Ago History Titradose] ~05/26/18 cloNIDine [Catapres] 0.2 mg PO QHS 04/11/16 06/29/18 2 Days Ago History ~05/26/18 Potassium Chloride [K-Dur] 10 meq PO QDAY #30 tablet 08/25/17 06/29/18 2 Days Ago Rx ~05/26/18 hydrALAZINE [Apresoline TAB] 50 mg PO Q8HR #90 tablet 08/25/17 06/29/18 2 Days Ago Rx ~05/26/18 oxyCODONE /ACETAMINOPHEN [Percocet 1 tab PO Q6H PRN #60 tablet 08/25/17 06/29/18 2 Days Ago Rx 5/325 mg] ~05/26/18 Furosemide [Lasix TAB] 80 mg PO DAILY tablet 05/29/18 06/29/18 Unknown Rx Gabapentin [Neurontin] 800 mg PO BID capsule 05/29/18 06/29/18 Unknown Rx Labetalol [Normodyne TAB] 200 mg PO Q12HR tablet 05/29/18 06/29/18 Unknown Rx Multivitamin Tab W-MINERAL 1 each PO QDAY tablet 05/29/18 06/29/18 Unknown Rx [Multiple Vitamin/Mineral (Theragran M)] Spironolactone [Aldactone] 25 mg PO BID tablet 05/29/18 06/29/18 Unknown Rx Tamsulosin [Flomax] 0.4 mg PO QDAY capsule 05/29/18 06/29/18 Unknown Rx Apixaban [Eliquis] 2.5 mg PO BID 06/29/18 06/29/18 Unknown History Active Medications: Generic Name Dose Route Start Last Admin Trade Name Freq PRN Reason Stop Dose Admin Acetaminophen 650 mg 06/29/18 04:06 06/30/18 06:18 Tylenol PO 650 mg Q4H PRN Administration Fever >101 Calcium Carbonate/Glycine 500 mg 06/30/18 11:00 Tums PO Q4H PRN Indigestion Citalopram Hydrobromide 10 mg 06/29/18 10:00 06/30/18 09:52 Celexa PO 10 mg QDAY DAVI Administration Dextrose 50 ml 06/29/18 04:02 D50w (25gm) Syringe IV PRN PRN Hypoglycemia Gabapentin 800 mg 06/29/18 10:00 06/30/18 09:51 Neurontin PO 800 mg BID [facility] Administration Haloperidol Lactate 2 mg 06/29/18 04:15 Haldol IV Q6H PRN Agitation Heparin Sodium (Porcine) 5,000 unit 06/29/18 10:00 06/30/18 09:52 Heparin SUB-Q 5,000 unit Q12HR [facility] Administration Sodium Chloride 1,000 mls @ 125 mls/hr 06/29/18 05:00 06/30/18 11:00 Nacl 0.9% 1000 Ml IV 125 mls/hr DIRECT [facility] Administration Piperacillin Sod/Tazobactam Sod 4.5 gm in 100 mls @ 200 mls/hr 06/29/18 14:00 06/30/18 05:00 Zosyn/Ns 4.5gm/100ml IV 200 mls/hr Q8HR [facility] Administration Vancomycin HCl 1 gm in 250 mls @ 166.667 mls/hr 06/30/18 12:00 Vancomycin/Ns 1 Gm/250 Ml IV Q12H [facility] Insulin Human Regular 0 units 06/29/18 07:30 06/30/18 08:00 Humulin R SUB-Q Not Given AC [facility] [place] Protocol Insulin Human Regular 0 units 06/29/18 22:00 06/29/18 23:54 Humulin R SUB-Q Not Given QHS [facility] Protocol Meclizine HCl 25 mg 06/29/18 10:22 Antivert PO Q8H PRN Vertigo Morphine Sulfate 2 mg 06/29/18 04:40 06/30/18 04:49 Morphine IV 2 mg Q3H PRN Administration Pain, Moderate (4-6) Multivitamins/Minerals 1 each 06/29/18 10:00 06/30/18 09:52 Theragran-M Tab PO 1 each DAILY [facility] Administration Ondansetron HCl 4 mg 06/29/18 04:14 Zofran IV Q8H PRN Nausea And Vomiting Warfarin Sodium 7.5 mg 06/29/18 17:00 06/29/18 18:39 Coumadin PO 7.5 mg DAILY@1700 [facility] Administration
[2018-06-30] MEDS: VANCOMYCIN/NS 1 GM/250 ML 1 GM/250 ML BAG IV SCH (12:38)
[2018-06-30] MEDS ORDERED: DAKIN'S HALF STRENGTH TP PRN (13:00)
--- NOTE | 2018-06-30 18:18 | Consultation ---
History of Present Illness Consult date: 06/30/18 Reason for consult: wound care Requesting physician: SUNITA MOREJON Chief complaint: abdominal pain - History of present illness History of present illness: 63yo M who is well-known to our service was admitted for abdominal pain. We have been asked to see him for wound care. Patient did not give much history. He reports that he is feeling better compared to admission. Past History Past Medical History: atrial fib, hypertension, stroke Past Surgical History: Other (Left BKA) Medications and Allergies Allergies Allergy/AdvReac Type Severity Reaction Status Date / Time No Known Allergies Allergy Verified 11/17/16 19:20 Home Medications Medication Instructions Recorded Confirmed Last Taken Type Citalopram [celeXA] 10 mg PO QDAY 04/11/16 06/29/18 2 Days Ago History ~05/26/18 Isosorbide Dinitrate [Isordil 20 mg PO TID 04/11/16 06/29/18 2 Days Ago History Titradose] ~05/26/18 cloNIDine [Catapres] 0.2 mg PO QHS 04/11/16 06/29/18 2 Days Ago History ~05/26/18 Potassium Chloride [K-Dur] 10 meq PO QDAY #30 tablet 08/25/17 06/29/18 2 Days Ago Rx ~05/26/18 hydrALAZINE [Apresoline TAB] 50 mg PO Q8HR #90 tablet 08/25/17 06/29/18 2 Days Ago Rx ~05/26/18 oxyCODONE /ACETAMINOPHEN [Percocet 1 tab PO Q6H PRN #60 tablet 08/25/17 06/29/18 2 Days Ago Rx 5/325 mg] ~05/26/18 Furosemide [Lasix TAB] 80 mg PO DAILY tablet 05/29/18 06/29/18 Unknown Rx Gabapentin [Neurontin] 800 mg PO BID capsule 05/29/18 06/29/18 Unknown Rx Labetalol [Normodyne TAB] 200 mg PO Q12HR tablet 05/29/18 06/29/18 Unknown Rx Multivitamin Tab W-MINERAL 1 each PO QDAY tablet 05/29/18 06/29/18 Unknown Rx [Multiple Vitamin/Mineral (Theragran M)] Spironolactone [Aldactone] 25 mg PO BID tablet 05/29/18 06/29/18 Unknown Rx Tamsulosin [Flomax] 0.4 mg PO QDAY capsule 05/29/18 06/29/18 Unknown Rx Apixaban [Eliquis] 2.5 mg PO BID 06/29/18 06/29/18 Unknown History Active Meds: Active Medications Acetaminophen (Tylenol) 650 mg PO Q4H PRN PRN Reason: Fever >101 Last Admin: 06/30/18 06:18 Dose: 650 mg Documented by: Calcium Carbonate/Glycine (Tums) 500 mg PO Q4H PRN PRN Reason: Indigestion Citalopram Hydrobromide (Celexa) 10 mg PO QDAY [facility] Last Admin: 06/30/18 09:52 Dose: 10 mg Documented by: Dextrose (D50w (25gm) Syringe) 50 ml IV PRN PRN PRN Reason: Hypoglycemia Gabapentin (Neurontin) 800 mg PO BID [facility] Last Admin: 06/30/18 09:51 Dose: 800 mg Documented by: Haloperidol Lactate (Haldol) 2 mg IV Q6H PRN PRN Reason: Agitation Heparin Sodium (Porcine) (Heparin) 5,000 unit SUB-Q Q12HR [facility] Last Admin: 06/30/18 09:52 Dose: 5,000 unit Documented by: Sodium Chloride (Nacl 0.9% 1000 Ml) 1,000 mls @ 125 mls/hr IV DIRECT [facility] Last Admin: 06/30/18 11:00 Dose: 125 mls/hr Documented by: Piperacillin Sod/Tazobactam Sod (Zosyn/Ns 4.5gm/100ml) 4.5 gm in 100 mls @ 200 mls/hr IV Q8HR [facility] Last Admin: 06/30/18 13:50 Dose: 200 mls/hr Documented by: Vancomycin HCl (Vancomycin/Ns 1 Gm/250 Ml) 1 gm in 250 mls @ 166.667 mls/hr IV Q12H [facility] Last Admin: 06/30/18 12:38 Dose: 166.667 mls/hr Documented by: Insulin Human Regular (Humulin R) 0 units SUB-Q AC [facility]; Protocol Last Admin: 06/30/18 12:40 Dose: Not Given Documented by: Insulin Human Regular ([facility]ulin R) [id number] Last Admin: 06/29/18 23:54 Dose: Not Given Documented by: Meclizine HCl (Antivert) 25 mg PO Q8H PRN PRN Reason: Vertigo Morphine Sulfate (Morphine) 2 mg IV Q3H PRN PRN Reason: Pain, Moderate (4-6) Last Admin: 06/30/18 04:49 Dose: 2 mg Documented by: Multivitamins/Minerals (Theragran-M Tab) 1 each PO DAILY [facility] Last Admin: 06/30/18 09:52 Dose: 1 each Documented by: Ondansetron HCl (Zofran) 4 mg IV Q8H PRN PRN Reason: Nausea And Vomiting Sodium Hypochlorite (Dakin's Half Strength) 1 applic TP Q12H PRN PRN Reason: Wound Care Warfarin Sodium (Coumadin) 7.5 mg PO DAILY@1700 [facility] Last Admin: 06/29/18 18:39 Dose: 7.5 mg Documented by: Review of Systems - Constitutional fever, chills, weakness, chronic pain - Cardiovascular no chest pain - Respiratory no cough - Gastrointestinal abdominal pain - Muskuloskeletal prior amputations - Integumentary wounds, color changes, foot/leg ulcers Exam Vital Signs Temp Pulse Resp BP Pulse Ox 99.2 F 78 14 88/58 93 06/28/18 23:12 06/28/18 23:12 06/28/18 23:12 06/28/18 23:12 06/28/18 23:12 - General physical appearance Positive: no distress, no pain - Respiratory Positive: normal expansion, normal respiratory effort - Extremities Extremity abnormal: edema, ulceration, other (extensive necrosis of the sup erficial skin. Multiple small ulcers seen. one large ulcer noted on posterior right leg. Pt has a Left BKA. ) - Psychiatric Psychiatric: appropriate mood/affect, cooperative Results - Labs 06/30/18 05:45 06/30/18 05:45 Abnormal lab results 06/29/18 06/30/18 06/30/18 Range/Units Unknown 05:45 05:45 RBC 3.09 L (3.65-5.03) M/mm3 Hgb 9.6 L (11.8-15.2) gm/dl Hct 27.8 L (35.5-45.6) % MCHC 35 H (32-34) % Lymph % (Auto) 10.5 L (13.4-35.0) % [place] % (Auto) 12.4 H (0.0-7.3) % Lymph # 0.7 L (1.2-5.4) K/mm3 Seg Neutrophils % 75.1 H (40.0-70.0) % PT (12.2-14.9) Sec. INR (0.87-1.13) Chloride 108.4 H (98-107) mmol/L Carbon Dioxide 21 L (22-30) mmol/L BUN 22 H (9-20) mg/dL Urine Creatinine 83.0 H (0.1-20.0) mg/dL Urine Chloride 73.9 L (110-250) mmolL Urine Total Protein 71 H (5-11.8) mg/dL 06/30/18 Range/Units 05:45 RBC (3.65-5.03) M/mm3 Hgb (11.8-15.2) gm/dl Hct (35.5-45.6) % MCHC (32-34) % Lymph % (Auto) (13.4-35.0) % [place] % (Auto) (0.0-7.3) % Lymph # (1.2-5.4) K/mm3 Seg Neutrophils % (40.0-70.0) % PT 17.4 H (12.2-14.9) Sec. INR 1.34 H (0.87-1.13) Chloride (98-107) mmol/L Carbon Dioxide (22-30) mmol/L BUN (9-20) mg/dL Urine Creatinine (0.1-20.0) mg/dL Urine Chloride (110-250) mmolL Urine Total Protein (5-11.8) mg/dL Diabetes panel 06/30/18 Range/Units 05:45 Sodium 141 (137-145) mmol/L Potassium 4.2 (3.6-5.0) mmol/L Chloride 108.4 H (98-107) mmol/L Carbon Dioxide 21 L (22-30) mmol/L BUN 22 H (9-20) mg/dL Creatinine 1.1 (0.8-1.5) mg/dL Glucose 81 (75-100) mg/dL Calcium 8.6 (8.4-10.2) mg/dL Calcium panel 06/30/18 Range/Units 05:45 Calcium 8.6 (8.4-10.2) mg/dL Pituitary panel 06/30/18 Range/Units 05:45 Sodium 141 (137-145) mmol/L Potassium 4.2 (3.6-5.0) mmol/L Chloride 108.4 H (98-107) mmol/L Carbon Dioxide 21 L (22-30) mmol/L BUN 22 H (9-20) mg/dL Creatinine 1.1 (0.8-1.5) mg/dL Glucose 81 (75-100) mg/dL Calcium 8.6 (8.4-10.2) mg/dL Adrenal panel 06/30/18 Range/Units 05:45 Sodium 141 (137-145) mmol/L Potassium 4.2 (3.6-5.0) mmol/L Chloride 108.4 H (98-107) mmol/L Carbon Dioxide 21 L (22-30) mmol/L BUN 22 H (9-20) mg/dL Creatinine 1.1 (0.8-1.5) mg/dL Glucose 81 (75-100) mg/dL Calcium 8.6 (8.4-10.2) mg/dL Assessment and Plan - Patient Problems (1) Chronic ulcer of right lower extremity Current Visit: Yes Status: Acute Qualifiers: Non-pressure ulcer stage: with fat layer exposed Qualified Code(s): L97.912 - Non-pressure chronic ulcer of unspecified part of right lower leg with fat layer exposed Plan to address problem: Pt stable. Extensive epidermolysis was seen in RLE. large amount of skin was peeled off or excised. leg was cleaned by Wound Care nurse and dressings appl ied. Pt appears to be following the same path as the LLE. He is at high risk of losing this leg as well. Will follow peripherally. Please call with questions. Time=40min
--- NOTE | 2018-06-30 18:42 | Procedure Note ---
Date of procedure: 06/30/18 Pre-op diagnosis: Right leg ulcers and epidermolysis Post-op diagnosis: same Procedure: debridement of RLE skin with blunt and sharp excisional dissection with scissors. Findings: extensive epidermolysis Anesthesia: none Surgeon: JESSIE DING Estimated blood loss: none Pathology: none Condition: stable Disposition: floor
[2018-06-30] MEDS: COUMADIN PO SCH (18:48)
[2018-06-30] MEDS ORDERED: VANCOMYCIN/NS 1 GM/250 ML 1 GM/250 ML BAG IV SCH (20:00)
[2018-07-01] MEDS: VANCOMYCIN/NS 1 GM/250 ML 1 GM/250 ML BAG IV SCH ×2 (00:08→12:00)
[2018-07-01] MEDS: NACL 0.9% 1000 ML 1,000 ML IV SCH (03:31)
[2018-07-01 05:00] VITALS: BP 135/87
[2018-07-01] MEDS: ZOSYN/NS 4.5GM/100ML 4.5 GM/100 ML VIAL IV SCH ×2 (05:25→13:55)
[2018-07-01 07:13] LABS: Basophils % (Auto) 0.3 % (0.0-1.8); Eosinophils # (Auto) 0.1 K/mm3 (0.0-0.4); Eosinophils % (Auto) 1.8 % (0.0-4.3); Hematocrit 27.7 % (35.5-45.6); Hemoglobin 9.5 gm/dl (11.8-15.2); Lymphocytes # (Auto) 0.6 K/mm3 (1.2-5.4); Mean Corpuscular HGB Conc 34 % (32-34); Mean Corpuscular Volume 89 fl (84-94); Monocytes # (Auto) 0.7 K/mm3 (0.0-0.8); Monocytes % (Auto) 10.6 % (0.0-7.3); Platelet Count 185 K/mm3 (140-440); Red Blood Count 3.11 M/mm3 (3.65-5.03); Red Cell Distribution Width 15.2 % (13.2-15.2)
[2018-07-01 07:28] LABS: INR 1.41 (0.87-1.13)
[2018-07-01 07:55] LABS: BUN/Creatinine Ratio 16; Blood Urea Nitrogen 14 mg/dL (9-20); Calcium 8.3 mg/dL (8.4-10.2); Hemolysis Index 2
[2018-07-01] MEDS: HumuLIN R SUB-Q SCH ×2 (08:12→11:30)
[2018-07-01] MEDS: THERAGRAN-M Tab PO SCH (10:04)
[2018-07-01] MEDS: NEURONTIN PO SCH (10:04)
[2018-07-01] MEDS: celeXA PO SCH (10:04)
[2018-07-01] MEDS: HEPARIN SUB-Q SCH (10:05)
--- NOTE | 2018-07-01 10:54 | Progress Note ---
Assessment and Plan Sepsis: Possible Right Lower Extremity Cellulitis: - Possible UTI - On IV fluids and antibiotics - Follow cultures - Gen Surgery evaluated pt, s/p debridement of RLE skin with blunt and sharp excisional dissection with scissors. Acute Kidney Injury possibly secondary to prerenal/ATN, vomiting, diarrhea, diuretics, hypotension, questionable underlying CKD process, questionable AIN from NSAIDs, no hydronephrosis: Left Kidney Nephrolithiasis: -Renal function reviewed, SCr level was 0.9 today, yesterday's SCr level was 1.1 -JAY resolved -Review of labs from [id number] showed SCr level between 0.8-1.3 -No obstruction noted on CT scan -Decrease 0.9% NS infusion to 50 ml/hr -D/C clonidine 0.2 mg at bedtime for now given hypotension -Urine eosinophils showed none seen -Avoid NSAIDs -Renally dose meds -Holding lasix for now -Paz Catheter: No -Renal plan d/w Dr Floyd Hypotension: Hx of Hypertension: - Hold all BP medications for now - Monitor blood pressure closely - On IV fluids Anemia: - Monitor History of Atrial Fibrillation: - On warfarin - As per primary Vertigo: - On Meclizine Hx of CVA with residual left sided weakness: - As per primary Subjective Date of service: 07/01/18 Interval history: Pt seen in bed, denies shortness of breath, no complaints voiced. No family at bedside Objective - Vital Signs Vital signs: Vital Signs - 12hr 06/30/18 06/30/18 07/01/18 22:58 23:20 04:58 Temperature 98.7 F 98.8 F Pulse Rate 84 84 Respiratory 18 17 20 Rate Blood Pressure 155/53 135/87 O2 Sat by Pulse 95 96 Oximetry - General Appearance General appearance: well-developed EENT: ATNC Neck: no JVD Respiratory: Present: Decreased Breath Sounds Cardiology: S1S2 Gastrointestinal: normoactive bowel sounds, no tenderness Integumentary: other (right lower extremity wound with dressing in place) Neurologic: other (awake, oriented to person, place, but not time, follows simple commands) Musculoskeletal: other (Left BKA noted; RLE wound with dressing in place) Psychiatric: cooperative - Lab 07/01/18 06:31 07/01/18 06:31 Most recent lab results Calcium 8.3 mg/dL (8.4-10.2) L 07/01/18 06:31 Urine Creatinine 83.0 mg/dL (0.1-20.0) H 06/29/18 Unknown Urine Sodium 93 mmol/L 06/29/18 Unknown Urine Total Protein 71 mg/dL (5-11.8) H 06/29/18 Unknown Medications & Allergies - Medications Allergies/Adverse Reactions: Allergies No Known Allergies Allergy (Verified 11/17/16 19:20) Home Medications: Home Medications Medication Instructions Recorded Confirmed Last Taken Type Citalopram [celeXA] 10 mg PO QDAY 04/11/16 06/29/18 2 Days Ago History ~05/26/18 Isosorbide Dinitrate [Isordil 20 mg PO TID 04/11/16 06/29/18 2 Days Ago History Titradose] ~05/26/18 cloNIDine [Catapres] 0.2 mg PO QHS 04/11/16 06/29/18 2 Days Ago History ~05/26/18 Potassium Chloride [K-Dur] 10 meq PO QDAY #30 tablet 08/25/17 06/29/18 2 Days Ago Rx ~05/26/18 hydrALAZINE [Apresoline TAB] 50 mg PO Q8HR #90 tablet 08/25/17 06/29/18 2 Days Ago Rx ~05/26/18 oxyCODONE /ACETAMINOPHEN [Percocet 1 tab PO Q6H PRN #60 tablet 08/25/17 06/29/18 2 Days Ago Rx 5/325 mg] ~05/26/18 Furosemide [Lasix TAB] 80 mg PO DAILY tablet 05/29/18 06/29/18 Unknown Rx Gabapentin [Neurontin] 800 mg PO BID capsule 05/29/18 06/29/18 Unknown Rx Labetalol [Normodyne TAB] 200 mg PO Q12HR tablet 05/29/18 06/29/18 Unknown Rx Multivitamin Tab W-MINERAL 1 each PO QDAY tablet 05/29/18 06/29/18 Unknown Rx [Multiple Vitamin/Mineral (Theragran M)] Spironolactone [Aldactone] 25 mg PO BID tablet 05/29/18 06/29/18 Unknown Rx Tamsulosin [Flomax] 0.4 mg PO QDAY capsule 05/29/18 06/29/18 Unknown Rx Apixaban [Eliquis] 2.5 mg PO BID 06/29/18 06/29/18 Unknown History Active Medications: Generic Name Dose Route Start Last Admin Trade Name Freq PRN Reason Stop Dose Admin Acetaminophen 650 mg 06/29/18 04:06 06/30/18 06:18 Tylenol PO 650 mg Q4H PRN Administration Fever >101 Calcium Carbonate/Glycine 500 mg 06/30/18 11:00 Tums PO Q4H PRN Indigestion Citalopram Hydrobromide 10 mg 06/29/18 10:00 07/01/18 10:04 Celexa PO 10 mg QDAY DAVI Administration Dextrose 50 ml 06/29/18 04:02 D50w (25gm) Syringe IV PRN PRN Hypoglycemia Gabapentin 800 mg 06/29/18 10:00 07/01/18 10:04 Neurontin PO 800 mg BID DAVI Administration Haloperidol Lactate 2 mg 06/29/18 04:15 Haldol IV Q6H PRN Agitation Heparin Sodium (Porcine) 5,000 unit 06/29/18 10:00 07/01/18 10:05 Heparin SUB-Q 5,000 unit Q12HR DAVI Administration Sodium Chloride 1,000 mls @ 125 mls/hr 06/29/18 05:00 07/01/18 03:31 Nacl 0.9% 1000 Ml IV 125 mls/hr DIRECT DAVI Administration Piperacillin Sod/Tazobactam Sod 4.5 gm in 100 mls @ 200 mls/hr 06/29/18 14:00 07/01/18 05:25 Zosyn/Ns 4.5gm/100ml IV 200 mls/hr Q8HR DAVI Administration Vancomycin HCl 1 gm in 250 mls @ 166.667 mls/hr 06/30/18 12:00 07/01/18 00:08 Vancomycin/Ns 1 Gm/250 Ml IV 166.667 mls/hr Q12H DAVI Administration Insulin Human Regular 0 units 06/29/18 07:30 07/01/18 08:12 Humulin R SUB-Q Not Given AC DAVI Protocol Insulin Human Regular 0 units 06/29/18 22:00 06/30/18 22:09 Humulin R SUB-Q Not Given QHS DAVI Protocol Meclizine HCl 25 mg 06/29/18 10:22 Antivert PO Q8H PRN Vertigo Morphine Sulfate 2 mg 06/29/18 04:40 06/30/18 22:50 Morphine IV 2 mg Q3H PRN Administration Pain, Moderate (4-6) Multivitamins/Minerals 1 each 06/29/18 10:00 07/01/18 10:04 Theragran-M Tab PO 1 each DAILY DAVI Administration Ondansetron HCl 4 mg 06/29/18 04:14 Zofran IV Q8H PRN Nausea And Vomiting Sodium Hypochlorite 1 applic 06/30/18 13:00 Dakin's Half Strength TP Q12H PRN Wound Care Warfarin Sodium 7.5 mg 06/29/18 17:00 06/30/18 18:48 Coumadin PO 7.5 mg DAILY@1700 DAVI Administration
[2018-07-01] MEDS ORDERED: NACL 0.9% 1000 ML 1,000 ML IV SCH (12:00)
--- NOTE | 2018-07-01 12:04 | Discharge Summary ---
Providers - Providers Date of Admission: 06/29/18 04:18 Attending physician: DONNA GRACE MD 06/29/18 06:00 Consult to Physician [CONS] Routine Comment: Dr. Floyd notified @ 0810 Consulting Provider: ROBERT RODRIGUEZ Physician Instructions: Reason For Exam: JAY Consult to Wound/ET Nurse [CONS] Routine Reason For Exam: wound eval 06/29/18 10:22 Consult to Physician [CONS] Routine Comment: set up on worklist for Dr. Callejas for the Consulting Provider: CRYSTAL CALLEJAS Physician Instructions: Reason For Exam: LE chronic wound Primary care physician: AMBER CRANDALL Hospitalization Reason for admission: UTI, Hypotension, acute renal failure Condition: Stable Hospital course: 63 y/o M with PMH of AFib on warfarin per pt, HTN, hx of CVA, Left BKA, and RLE lymphedema who presented to [facility] with c/o dizziness, fever, RLE pain, and hypotension. 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 CXR showed no acute cardiopulmonary findings. Pt started on IV fluids and on antibiotics for possible UTI and right lower extremity cellulitis. Pt states he takes lasix at home. Pt reports taking ibuprofen (two tablets) once a day for about 1 month for RLE pain. Pt states having RLE wound for about 3 months, but hasn't sought treatment until this admission. Pt denies antibiotics prior to this admission.Pt seen in the ED. Sepsis. Etiology secondary to UTI and right lower extremity cellulitis. Treated with IV antibiotics and continued with PO antibiotic. Urine culture grew E.coli. Right lower extremity cellulitis/chronic wounds; surgery consulted and did debridement and recommend to follow at wound clinic and F/U appointment arranged. Acute kidney injury; resolved with IV fluids. Abdominal pain resolved. CT scan of the abdomen reveals hypodense liver lesions suggesting cysts. Cholelithiasis but no cholecystitis or biliary ductal dilatation. Hypertension; controlled with home meds. Elevated troponin;Patient has had chronically elevated troponin noted on previous hospitalizations as far back as 2017. Vertigo improved with meclizine. Lymphedema; Patient with chronic right lower extremity lymphedema, advised to have follow up as an O/P History of A. fib. Continue Coumadin. Seizure disorder. Seizure precautions and continue AEDs. Peripheral vascular disease. BINH completed May 2018 revealed no evidence of significant arterial insufficiency in the right lower extremity. LTt BKA. Advised to have F/U with PCP for f/u of INR. Wound care f/u appointment arranged. Disposition: - TO HOME OR SELFCARE Time spent for discharge: 32 minutes - Discharge Diagnoses (1) Acute renal failure Status: Acute Qualifiers: Acute renal failure type: with acute tubular necrosis Qualified Code(s): N17.0 - Acute kidney failure with tubular necrosis (2) Cellulitis of lower extremity Status: Acute (3) Chronic ulcer of right lower extremity Status: Acute Qualifiers: Non-pressure ulcer stage: with fat layer exposed Qualified Code(s): L97.912 - Non-pressure chronic ulcer of unspecified part of right lower leg with fat layer exposed (4) Hypotension Status: Acute (5) UTI (urinary tract infection) Status: Acute (6) DVT (deep venous thrombosis) Status: Acute Qualifiers: Chronicity: chronic (7) Sepsis Status: Acute Qualifiers: Sepsis type: sepsis due to unspecified organism Qualified Code(s): A41.9 - Sepsis, unspecified organism Comment: Patient with infected left abscess and chronic lymphedema. Did not tolerate IV antibiotics status post BKA. Wound looks good continued daily dressing change in the half-way facility setting. Core Measure Documentation - Palliative Care Palliative Care/ Comfort Measures: Not Applicable - Core Measures Any of the following diagnoses?: none Exam - Physical Exam Narrative exam: Not in cardiopulmonary distress. The patient appeared well nourished and normally developed. Vital signs as documented. Head exam is unremarkable. No scleral icterus . Neck is without jugular venous distension, thyromegaly, or carotid bruits. Lungs are clear to auscultation. Cardiac exam reveals regular rate and Rhythm. Abdominal exam reveals normal bowel sounds, no masses, no organomegaly and no aortic enlargement. Extremities left BKA, right LE clean dressing. DRAFTER ELECTRICAL: Alert and oriented 3. No focal weakness. - Constitutional Vitals: Temp Pulse Resp BP Pulse Ox 98.8 F 84 20 135/87 96 07/01/18 04:58 07/01/18 04:58 07/01/18 04:58 07/01/18 04:58 07/01/18 04:58 Plan Activity: no restrictions Weight Bearing Status: Non-Weight Bearing Diet: low salt Follow up with: AMBER CRANDALL MD [Primary Care Provider] - 3-5 Days Forms: Warfarin Discharge Instruction Prescriptions: cefUROXime [Ceftin] 250 mg PO Q12H #10 tablet
[2018-07-01] MEDS ORDERED: COUMADIN PO SCH (17:00)
== END 2018-07-01 16:01 | DRG 871 ==
LOC: ED 22:50 → 4A 06-29 04:18 → 3A 06-29 06:10
PROVIDERS: ADMIT Internal Medicine; ATTEND Internal Medicine
PROC: 0HBKXZZ Excision of Right Lower Leg Skin, External Approach (ICD-10-PCS; principal; 2018-06-30)
DX: A41.9 Sepsis, unspecified organism (principal); N17.0 Acute kidney failure with tubular necrosis; N39.0 Urinary tract infection, site not specified; L03.115 Cellulitis of right lower limb; L97.912 Non-pressure chronic ulcer of unspecified part of right lower leg with fat layer exposed; I69.354 Hemiplegia and hemiparesis following cerebral infarction affecting left non-dominant side; L51.2 Toxic epidermal necrolysis [Lyell]; G40.909 Epilepsy, unspecified, not intractable, without status epilepticus; D64.9 Anemia, unspecified; K76.89 Other specified diseases of liver; N20.0 Calculus of kidney; K80.20 Calculus of gallbladder without cholecystitis without obstruction; E11.51 Type 2 diabetes mellitus with diabetic peripheral angiopathy without gangrene; I48.91 Unspecified atrial fibrillation; I10 Essential (primary) hypertension; Z89.512 Acquired absence of left leg below knee; Z79.01 Long term (current) use of anticoagulants; Z79.899 Other long term (current) drug therapy; Z79.84 Long term (current) use of oral hypoglycemic drugs
CPT/HCPCS: 36415; 71045; 74176; 80048; 80053; 80061; 81001; 82043; 82140; 82436; 82550; 82553; 82962; 83690; 84156; 84300; 84484; 85025; 85027; 85610; 85730; 87040; 87076; 87086; 87116; 87186; 89050; 90471; 90686; 90732; 93005; 93010; G0378; A6260; G0008; G0009; J1644; J2270; J2543; J3370; J7030; J7040

== ENCOUNTER 2018-07-09 11:30 | Day surgery (SDC) | payer MEDICARE ==
[2018-07-09 12:51] LABS: Hematocrit 28.3 % (35.5-45.6); Hemoglobin 9.6 gm/dl (11.8-15.2); Mean Corpuscular HGB Conc 34 % (32-34); Mean Corpuscular Volume 89 fl (84-94); Platelet Count 338 K/mm3 (140-440); Red Blood Count 3.18 M/mm3 (3.65-5.03); Red Cell Distribution Width 15.1 % (13.2-15.2)
[2018-07-09 12:53] LABS: INR 1.29 (0.87-1.13)
[2018-07-09 12:54] LABS: Partial Thromboplastin Time 34.2 Sec. (24.2-36.6)
[2018-07-09] MEDS ORDERED: HEPARIN/NS 5000 UNIT/500ML(CATH LAB) 1,000 ML IR ONE (13:04)
[2018-07-09] MEDS ORDERED: NACL 0.9% 500 ML 500 ML ONE ×2 (13:04→13:07)
[2018-07-09] MEDS ORDERED: ANCEF/STERILE WATER 2 GM/20 ML 2 GM/20 ML SYRINGE IV ONE (13:04)
[2018-07-09 13:33] LABS: Total Cells Counted 100
[2018-07-09 13:34] LABS: Basophils % (Manual) 0 % (0.0-1.8); Platelet Estimate Consistent w Auto; RBC Morphology Normal
[2018-07-09] MEDS ORDERED: NACL 0.9% 500 ML 500 ML IV SCH (14:00)
[2018-07-09 14:06] LABS: BUN/Creatinine Ratio 11; Blood Urea Nitrogen 15 mg/dL (9-20); Calcium 8.8 mg/dL (8.4-10.2); Hemolysis Index 4
[2018-07-09] MEDS: VERSED ONE ×5 (14:12→15:34)
[2018-07-09] MEDS: SUBLIMAZE ONE ×5 (14:12→15:34)
[2018-07-09] MEDS: XYLOCAINE 1%/ EPI 1:100,000 INFILTRATI ONE ×2 (14:16→14:18)
[2018-07-09] MEDS: HEPARIN 10,000 UNITS/10 ML ONE ×2 (14:37→15:22)
[2018-07-09] MEDS ORDERED: TRIDIL DRIP 50MG/250ML 50 MG/250 ML BOTTLE ONE (15:14)
[2018-07-09] MEDS ORDERED: NACL 0.9% 1000 ML 1,000 ML ONE (15:14)
[2018-07-09] MEDS ORDERED: CALAN ONE (15:15)
--- NOTE | 2018-07-09 16:48 | Short Stay Summary ---
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 - History Principal diagnosis: CLI right lower extremity H&P: obtained from office - Allergies and Medications Current Medications: Allergies No Known Allergies Allergy (Verified 11/17/16 19:20) Home Medications Medication Instructions Recorded Confirmed Last Taken Type Citalopram [celeXA] 10 mg PO QDAY 04/11/16 07/09/18 1 Day Ago History ~07/08/18 10mg Isosorbide Dinitrate [Isordil 20 mg PO TID 04/11/16 07/09/18 1 Day Ago History Titradose] ~07/08/18 20mg cloNIDine [Catapres] 0.2 mg PO QHS 04/11/16 07/09/18 1 Day Ago History ~07/08/18 0.2mg Potassium Chloride [K-Dur] 10 meq PO QDAY #30 tablet 08/25/17 07/09/18 1 Day Ago Rx ~07/08/18 10meq hydrALAZINE [Apresoline TAB] 50 mg PO Q8HR #90 tablet 08/25/17 07/09/18 1 Day Ago Rx ~07/08/18 50mg oxyCODONE /ACETAMINOPHEN [Percocet 1 tab PO Q6H PRN #60 tablet 08/25/17 07/09/18 1 Day Ago Rx 5/325 mg] ~07/08/18 1 tab Furosemide [Lasix TAB] 80 mg PO DAILY tablet 05/29/18 07/09/18 1 Day Ago Rx ~07/08/18 80mg Gabapentin [Neurontin] 800 mg PO BID capsule 05/29/18 07/09/18 1 Day Ago Rx ~07/08/18 800mg Labetalol [Normodyne TAB] 200 mg PO Q12HR tablet 05/29/18 07/09/18 1 Day Ago Rx ~07/08/18 200mg Multivitamin Tab W-MINERAL 1 each PO QDAY tablet 05/29/18 07/09/18 1 Day Ago Rx [Multiple Vitamin/Mineral ~07/08/18 (Theragran M)] 1 tab Spironolactone [Aldactone] 25 mg PO BID tablet 05/29/18 07/09/18 1 Day Ago Rx ~07/08/18 25mg Tamsulosin [Flomax] 0.4 mg PO QDAY capsule 05/29/18 07/09/18 1 Day Ago Rx ~07/08/18 .4mg Apixaban [Eliquis] 2.5 mg PO BID 06/29/18 07/09/18 2 Days Ago History ~07/07/18 2.5 Calcium Carbonate [Hung-Gest] 2 tab PO PRN PRN 07/09/18 07/09/18 1 Day Ago History ~07/08/18 2 tab Active Medications Sodium Chloride (Nacl 0.9% 500 Ml) 500 mls @ 50 mls/hr IV DIRECT DAVI - Physical exam General appearance: no acute distress Lungs: Normal air movement Gastrointestinal: normal Extremities: normal temperature, normal color, abnormal (L BKA, R foot and leg wounds) - Brief post op/procedure progress note Date of procedure: 07/09/18 Pre-op diagnosis: CLI RLE Post-op diagnosis: same Procedure: revasc RLE Anesthesia: local (w/ conscious sedation) Surgeon: OTONIEL ESCALONA Estimated blood loss: minimal Condition: stable - Hospital course Hospital course: Ready for discharge in 4 hrs - Disposition Condition at discharge: Stable Disposition: [id number] [facility] CERT - Discharge Diagnoses (1) Critical ischemia of lower extremity Status: Acute (2) Atherosclerosis of right lower extremity with ulceration of calf Status: Acute (3) Atherosclerosis of right lower extremity with ulceration of midfoot Status: Acute (4) Chronic ulcer of right lower extremity Status: Acute Qualifiers: (5) Infected stasis ulcer of right lower extremity Status: Acute (6) Lymphedema of both lower extremities Status: Acute Comment: Chronic lymphedema. post BKA. Short Stay Discharge Plan Activity: advance as tolerated Weight Bearing Status: Weight Bear as Tolerated Diet: advance as tolerated Wound: keep clean and dry, other (remove pressure dressing 07/10/18 ; restart Eliquis on 07/11/18 ; start plavix 07/10/18) Follow up with: AMBER CRANDALL MD [Primary Care Provider] - 7 Days
--- NOTE | 2018-07-09 17:01 | Operative Report ---
Operative Report Operative Report: EXAM: 1. Ultrasound-guided access of the left common femoral artery. 2. Angiography of the left lower extremity. 3. Selection of the abdominal aorta with CO2 angiography 4. Selection of the right external iliac artery, superficial femoral artery and popliteal artery with CO2 angiography 5. Selection of the right anterior tibial artery with angiography 6. Selection of the right posterior tibial artery with angiography 7. Atherectomy of the right posterior tibial artery with a 1.5 mm CSI solid atherectomy with angioplasty with a 3-3.5 mm x 210 mm nanocross balloon 8. Closure of the left common femoral artery with a 6 [place] Angio-Seal DATE: 07/09/18 ASSISTANT PROFESSOR OF GEOGRAPHY: OTONIEL ESCALONA MD INDICATION: Critical limb ischemia of the right lower extremity with lymphedema, nonpalpable pulses, monophasic abnormal ultrasound and ulceration of the foot and calf MEDICATIONS: Please see nursing report for full details. DEVICES: 1.5 mm CSI solid atherectomy device 3-3.5 mm 210 mm none across balloon CONTRAST: 43.5 mL of nonionic contrast PROCEDURE: The risks, benefits, and alternatives were discussed with the patient; written informed consent was obtained. The groins were prepped and draped in a sterile fashion. The left common femoral artery was assessed with ultrasound was patent. Under direct ultrasound guidance, the left common femoral artery was accessed with a 21-gauge micropuncture needle. 0.018 inch wire was passed into the aorta. Needle was exchanged for transitional dilator. Wire was exchanged for 0.035 inch wire. Transitional dilators exchanged for a 5 [place] sheath. Digital subtraction angiography was performed demonstrating patency of the left external iliac artery, common femoral artery, proximal superficial femoral artery, and profunda femoral artery. Flush catheter was advanced into the abdominal aorta and CO2 angiography was performed demonstrating patency of the infrarenal abdominal aorta, bilateral common iliac arteries, bilateral external iliac arteries, with poor opacification of the internal iliac arteries. The right external iliac artery was selected and CO2 angiography was performed demonstrating patency of the right common femoral artery, profunda femoral artery, proximal superficial femoral artery, and subsequently the right superficial femoral artery was selected and CO2 angiography was performed demonstrating patency of the entirety of the superficial femoral artery and popliteal artery. The right popliteal artery was selected and digital subtraction angiography was performed demonstrating patency of the proximal 10 cm of the anterior tibial artery with subsequent long segment occlusion until 10 cm above the ankle. The tibioperoneal trunk was patent. The proximal 10 cm of the peroneal artery was patent, but afterwards, the peroneal artery was severely narrowed with multifocal 99 and 90% narrowings. The distal peroneal artery was occluded. The posterior tibial artery was patent for the first 5-10 cm and subsequently became atretic and severely narrowed until it became occluded at the mid calf with reconstitution approximately 10 cm above the ankle. There is extensive collaterals consistent with long-standing chronic occlusions below the knee. The patient was heparinized. Sheath was exchanged for 6 [place] 90 cm [place] destination position in the right popliteal artery. The anterior tibial artery was selected. A variety of wires and catheters were used in an attempt across the anterior tibial artery occlusion which was ultimately unsuccessful. The right posterior tibial artery was selected and a variety of wires in catheters were used to successfully cross the posterior tibial artery. Digital subtraction angiography was performed confirming position. Viperwire was passed into the common plantar artery. CSI atherectomy 1.5 mm solid device was then used at low and medium settings through the posterior tibial artery. Afterwards, 3-3.5 mm x 210 mm angioplasty balloon was used to perform angioplasty throughout the posterior tibial artery. Digital subtraction angiography was performed demonstrating no residual narrowing of the posterior tibial artery with unchanged runoff of the anterior tibial and peroneal artery. There is now prompt flown to the foot to the posterior tibial artery. At this point all wires, catheters, and she is retracted to the left external iliac artery. Sheath was exchanged for 6 [place] Angio-Seal which was deployed, but despite the successful deployment there is still bleeding. Pressure was held for 5 minutes at which point the bleeding stopped. Ultrasound was used to identify the artery which demonstrated that the footplate was along the anterior wall of the vessel, which is appropriate. There is a palpable pulse above and below the artery and in the popliteal artery. Pressure dressing was applied. Patient tolerated the procedure well. No immediate postprocedure complication. FINDINGS: Please see procedure note above IMPRESSION: 1. Successful atherectomy and angioplasty of the right posterior tibial artery.
[2018-07-09] MEDS ORDERED: PLAVIX PO ONE (18:23)
[2018-07-09 18:52] VITALS: BP 98/65
== END 2018-07-09 19:15 ==
LOC: CATHLABREC 11:30
PROVIDERS: ATTEND Radiology Diagnostic Radiology
DX: I70.235 Atherosclerosis of native arteries of right leg with ulceration of other part of foot (principal); I89.0 Lymphedema, not elsewhere classified; D72.829 Elevated white blood cell count, unspecified; I25.10 Atherosclerotic heart disease of native coronary artery without angina pectoris; I70.232 Atherosclerosis of native arteries of right leg with ulceration of calf; I70.234 Atherosclerosis of native arteries of right leg with ulceration of heel and midfoot; I10 Essential (primary) hypertension; M19.90 Unspecified osteoarthritis, unspecified site; F30.9 Manic episode, unspecified; F41.9 Anxiety disorder, unspecified; Z91.81 History of falling; Z79.899 Other long term (current) drug therapy; Z87.440 Personal history of urinary (tract) infections; Z98.890 Other specified postprocedural states; Z86.2 Personal history of diseases of the blood and blood-forming organs and certain disorders involving the immune mechanism; Z86.73 Personal history of transient ischemic attack (TIA), and cerebral infarction without residual deficits
CPT/HCPCS: 36415; 37229; 75710; 76937; 80048; 85007; 85025; 85610; 85730; 99156; 99157; C1724; C1725; C1760; C1769; C1887; J0690; J1644; J2250; J3010; J7030; J7040; Q9967

== ENCOUNTER 2018-07-21 06:19 | Day surgery (SDC) | payer MEDICARE ==
--- NOTE | 2018-07-21 07:18 | Anesthesia Consultation ---
Anesthesia Consult and Med Hx Date of service: 07/21/18 - Airway Anesthetic Teeth Evaluation: Poor ROM Head & Neck: Adequate Mental/Hyoid Distance: Adequate Mallampati Class: Class III Intubation Access Assessment: Probably Good - Pulmonary Exam CTA: Yes - Cardiac Exam Cardiac Exam: RRR - Pre-Operative Health Status ASA Pre-Surgery Classification: ASA3 Proposed Anesthetic Plan: MAC - Pulmonary Hx Smoking: No Hx Asthma: No Hx Respiratory Symptoms: No COPD: No Home Oxygen Therapy: No Hx Pneumonia: No - Cardiovascular System Hx Hypertension: Yes Hx Heart Attack/AMI: No Hx Angina: No Hx Pacemaker: No Hx Internal Defibrillator: No Hx Peripheral Vascular Disease: Yes - Central Nervous System Hx Seizures: Yes CVA: Yes (Two Strokes; 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
--- NOTE | 2018-07-21 07:19 | Anesthesia Day of Surgery ---
Anesthesia Day of Surgery - Day of Surgery Patient Examined: Yes Patient H&P Reviewed: Yes Patient is NPO: Yes (3 days per patient) Beta Blockers: No Cardiac Clearance: No Pulmonary Clearance: No
[2018-07-21] MEDS ORDERED: NACL 0.9% 1000 ML 1,000 ML ONE (07:20)
[2018-07-21] MEDS ORDERED: NEO SYNEPHRINE ONE (07:35)
[2018-07-21] MEDS ORDERED: SUBLIMAZE ONE (07:35)
[2018-07-21] MEDS ORDERED: VERSED ONE ×2 (07:35→08:23)
[2018-07-21] MEDS ORDERED: XYLOCAINE MPF 2% ONE (07:36)
[2018-07-21] MEDS ORDERED: DIPRIVAN 10 MG/ML IV ONE ×5 (07:36→10:48)
[2018-07-21] MEDS ORDERED: NACL 0.9% 1000 ML 1,000 ML IV SCH (08:00)
[2018-07-21 08:03] LABS: Basophils % (Auto) 0.3 % (0.0-1.8); Eosinophils # (Auto) 0.3 K/mm3 (0.0-0.4); Eosinophils % (Auto) 5.5 % (0.0-4.3); Hemoglobin 11.3 gm/dl (11.8-15.2); Lymphocytes # (Auto) 1.3 K/mm3 (1.2-5.4); Lymphocytes % (Auto) 23.6 % (13.4-35.0); Mean Corpuscular HGB Conc 34 % (32-34); Mean Corpuscular Volume 88 fl (84-94); Monocytes # (Auto) 0.9 K/mm3 (0.0-0.8); Monocytes % (Auto) 15.7 % (0.0-7.3); Platelet Count 141 K/mm3 (140-440); Red Blood Count 3.74 M/mm3 (3.65-5.03)
[2018-07-21 08:16] LABS: INR 1.06 (0.87-1.13)
[2018-07-21 08:17] LABS: Partial Thromboplastin Time 33.7 Sec. (24.2-36.6)
[2018-07-21 08:21] LABS: BUN/Creatinine Ratio 10; Blood Urea Nitrogen 10 mg/dL (9-20); Calcium 9.1 mg/dL (8.4-10.2); Hemolysis Index 0
[2018-07-21] MEDS ORDERED: HEPARIN/NS 5000 UNIT/500ML(CATH LAB) 1,000 ML IR ONE (08:36)
[2018-07-21] MEDS ORDERED: HEPARIN 10,000 UNITS/10 ML ONE (08:36)
[2018-07-21] MEDS ORDERED: ANCEF/STERILE WATER 2 GM/20 ML 2 GM/20 ML SYRINGE IV ONE (08:38)
[2018-07-21] MEDS ORDERED: ELIQUIS ONE (08:40)
--- NOTE | 2018-07-21 08:45 | Short Stay Summary ---
Short Stay Documentation Date of service: 07/21/18 Narrative H&P: 63 year old male with right lower extremity critical limb ischemia and mixed disease and IVC and iliac occlusion requiring reconstruction due to severe swelling preventing healing. - History Principal diagnosis: Venous compression, post thrombotic syndrome, chronic venous insuff with ul H&P: obtained from office - Allergies and Medications Current Medications: Allergies No Known Allergies Allergy (Verified 11/17/16 19:20) Home Medications Medication Instructions Recorded Confirmed Last Taken Type Citalopram [celeXA] 10 mg PO QDAY 04/11/16 07/21/18 07/20/18 History Isosorbide Dinitrate [Isordil 20 mg PO TID 04/11/16 07/21/18 07/20/18 History Titradose] cloNIDine [Catapres] 0.2 mg PO QHS 04/11/16 07/21/18 07/20/18 History Potassium Chloride [K-Dur] 10 meq PO QDAY #30 tablet 08/25/17 07/21/18 07/20/18 Rx hydrALAZINE [Apresoline TAB] 50 mg PO Q8HR #90 tablet 08/25/17 07/21/18 07/20/18 Rx oxyCODONE /ACETAMINOPHEN [Percocet 1 tab PO Q6H PRN #60 tablet 08/25/17 07/21/18 07/20/18 Rx 5/325 mg] Furosemide [Lasix TAB] 80 mg PO DAILY tablet 05/29/18 07/21/18 07/20/18 Rx Gabapentin [Neurontin] 800 mg PO BID capsule 05/29/18 07/21/18 07/20/18 Rx Labetalol [Normodyne TAB] 200 mg PO Q12HR tablet 05/29/18 07/21/18 07/20/18 Rx Multivitamin Tab W-MINERAL 1 each PO QDAY tablet 05/29/18 07/21/18 07/20/18 Rx [Multiple Vitamin/Mineral (Theragran M)] Spironolactone [Aldactone] 25 mg PO BID tablet 05/29/18 07/21/18 07/20/18 Rx Tamsulosin [Flomax] 0.4 mg PO QDAY capsule 05/29/18 07/21/18 07/20/18 Rx Apixaban [Eliquis] 2.5 mg PO BID 06/29/18 07/21/18 07/20/18 History Calcium Carbonate [Hung-Gest] 2 tab PO PRN PRN 07/09/18 07/21/18 07/20/18 History Active Medications Sodium Chloride (Nacl 0.9% 1000 Ml) 1,000 mls @ 42 mls/hr IV DIRECT DAVI - Physical exam General appearance: no acute distress Lungs: Normal air movement Extremities: normal temperature, normal color, abnormal (edema right le worse than left) - Brief post op/procedure progress note Date of procedure: 07/21/18 Pre-op diagnosis: IVC and iliac vein occlusion Post-op diagnosis: same Procedure: 1. Ultrasound guided access of the right superficial femoral vein 2. Venography of the right lower extremity and IVC 3. Selection of the right common femoral vein, external iliac vein, common iliac vein, and IVC 4. Ultrasound guided access of the right internal jugular vein 5. Snaring of the 0.035 wire through the right superficial femoral vein sheath a nd internal jugular vein sheath 6. Angioplasty of the IVC, right common iliac vein, right external iliac vein, right common femoral vein with 7 mm, 12 mm, 14 mm, and 16 mm angioplasty balloons 7. Angioplasty of the IVC with an 18 mm angioplasty balloon 8. Stenting of the right common femoral vein, external iliac vein, and common iliac vein with a 16 mm x 140 mm Venovo 9. Stenting of the IVC and right common femoral vein with a 18 mm x 140 mm Venovo Anesthesia: local (w/ conscious sedation) Surgeon: OTONIEL ESCALONA Estimated blood loss: minimal Condition: stable - Hospital course Hospital course: Tolerated procedure well. No additional respiratory of airway issues. Did well. Followup in 2 weeks. Continue Eliquis and plavix. Started protonix. 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 post BKA. Short Stay Discharge Plan Activity: advance as tolerated Weight Bearing Status: Weight Bear as Tolerated Diet: low carbohydrate, advance as tolerated Wound: keep clean and dry, other (remove pressure dressings on 07/22/18 in AM ) Special Instructions: other (continue plavix and Eliquis ; start on protonix 20 mg PO BID per instuctions.) Follow up with: AMBER CRANDALL MD [Primary Care Provider] - 7 Days Forms: Post Arteriogram Instruct
[2018-07-21] MEDS ORDERED: ZOFRAN IV PRN (08:54)
[2018-07-21] MEDS ORDERED: DILAUDID IV PRN (08:54)
[2018-07-21] MEDS ORDERED: ELIQUIS PO ONE ×2 (09:00→16:00)
[2018-07-21] MEDS: XYLOCAINE 1%/ EPI 1:100,000 INFILTRATI ONE ×2 (09:21→09:37)
[2018-07-21] MEDS ORDERED: HEPARIN/NS 5000 UNIT/500ML(CATH LAB) 500 ML IR ONE (10:03)
--- NOTE | 2018-07-21 12:11 | Operative Report ---
Operative Report Operative Report: EXAM: 1. Ultrasound guided access of the right superficial femoral vein 2. Venography of the right lower extremity and IVC 3. Selection of the right common femoral vein, external iliac vein, common iliac vein, and IVC 4. Ultrasound guided access of the right internal jugular vein 5. Snaring of the 0.035 wire through the right superficial femoral vein sheath and internal jugular vein sheath 6. Intravascular ultrasound of the IVC, right common iliac vein, right external iliac vein, right common femoral vein 6. Angioplasty of the IVC, right common iliac vein, right external iliac vein, right common femoral vein with 7 mm, 12 mm, 14 mm, and 16 mm angioplasty balloons 7. Angioplasty of the IVC with an 18 mm angioplasty balloon 8. Stenting of the right common femoral vein, external iliac vein, and common iliac vein with a 16 mm x 140 mm Venovo 9. Stenting of the IVC and right common femoral vein with a 18 mm x 140 mm Venovo DATE: 07/21/18 COPYWRITER: OTONIEL ESCALONA MD INDICATION: 63-year-old male with lymphedema of the lower extremities, severe swelling of the right lower extremity, ulceration of the right lower extremity, arterial and venous disease of the right lower extremity, post-thrombotic syndrome with occlusion of the IVC and iliac veins, and venous compression who recently had revascularization of the right posterior tibial artery and now presents for iliac vein reconstruction and IVC reconstruction. Status post left below-knee amputation. MEDICATIONS: Please see nursing report for full details. CONTRAST: Please see cork slabs sawyer report for full details. PROCEDURE: The risks, benefits, and alternatives were discussed with the patient. Written informed consent was obtained. Anesthesia was available for the case and provided MAC. They had some issues with large amount of secretions requiring suctioning with some minor bleeding. Please see anesthesia report for more details. The patient's groins and right neck were prepped and draped in sterile fashion. Ultrasound was used to evaluate the right superficial femoral vein which was patent. There were large collaterals arising from the right common femoral vein. The right internal jugular vein was patent. Under direct ultrasound guidance, the right superficial femoral vein was accessed with a 21-gauge micropuncture needle. 0.018 inch wire was passed the common femoral vein. Needle was exchanged for a transitional dilator. Wire was exchanged for 0.035 inch wire. Transitional dilator was exchanged for a 5 [place] sheath. Digital subtraction angiography was performed demonstrating patency of the right common femoral vein at its lower portion with extensive collaterals arising from the common femoral vein along the right flank wall. The right upper common femoral vein was 50% narrowed, and there were multifocal noncontiguous narrowings with 60% to 70% diffuse narrowing in the right external iliac vein, and 90% narrowing with occlusion of the right common iliac vein. The infrarenal IVC was occluded. There was an IVC filter in the occluded IVC. The patient was heparinized. Sheath was exchanged for a 7 [place] 23 cm sheath. Angled catheter was advanced over the wire and various wires were then used to pass a wire to the IVC. I could not cross the IVC from below. Under direct ultrasound guidance, the right internal jugular vein was accessed with a 21-gauge micropuncture needle. 0.018 inch wire was passed into the IVC. Needle was exchanged for transitional dilator. Wire was exchanged for 0.035 inch wire. Transitional dilator was exchanged for a 5 [place] sheath. Various sheath were then used with ultimate placement of a 6 [place] 45 cm [place] destination in the suprarenal IVC. The suprarenal IVC was patent. The renal veins were patent. There is a large collateral extending to the right flank and lumbar region arising from the IVC. The infrarenal IVC and IVC filter were occluded. After manipulation with multiple catheters, sheaths and wires, I believe I was able to crack the cap from a jugular approach. I then returned to a femoral approach and was able to cross the occluded IVC. The wire was then snared from above after the above access was exchanged for a 7 [place] 23 cm sheath. 7 [place] snare with 18-30 mm diameter was used to snare the wire. Through and through access was then obtained. I decided not to reconstruct the left iliac veins due to the left lower extremity amputation. Intravascular ultrasound was advanced over the wire and used to evaluate the v eins. The renal portion of the IVC was collapsed with the patient valsalved, but was otherwise patent. The infrarenal IVC was occluded. The right common iliac vein was essentially occluded. The right external iliac vein was 6 mm in size. The right common femoral vein at its superior portion was 50% narrowed. The right common femoral vein at its normal size range between 12 and 18 mm in diameter. Angioplasty was then sequentially performed with intermittent contrast injection using 7 mm x 200 mm angioplasty balloon to treat the IVC, right common iliac vein, external iliac vein, and right common femoral vein. Afterwards, 12 mm x 60 mm angioplasty with used to treat these vessels. Afterwards, 14 x 40 mm and 16 x 40 mm angioplasty balloons reviewed to treat these areas. Finally, a 18 mm x 40 mm angioplasty balloon was used to perform angioplasty of the IVC. 16 mm x 140 mm Venovo stent was then deployed over the peripheral portion of the common iliac vein, external iliac vein, and upper portion of the common femoral vein. 18 mm x 140 mm Venovo stent was then deployed over the IVC and right common iliac vein. All of the stents were then post dilated with an 18 mm x 40 mm angioplasty balloon. Digital subtraction angiography was performed demonstrating prompt flow through the right common femoral vein into the right common femoral vein stent, right external iliac vein stent, right common iliac vein stent, IVC stent, and then into the IVC without any flow limiting narrowing. When the patient performed a valsalva maneuver, there was some reflux of contrast into the right flank collateral which did not appear unless he performed a Valsalva maneuver. At this point, all wires, catheters, and she is removed. Pressure dressings were applied. Patient tolerated the procedure well. No immediate post procedural complication. FINDINGS: Please see procedure note above IMPRESSION: 1. Successful venous stenting and angioplasty with reconstruction of the IVC, right common iliac vein, right external iliac vein, and right common femoral vein with use of intravascular ultrasound.
[2018-07-21] MEDS ORDERED: PROTONIX PO SCH (14:00)
[2018-07-21 15:06] VITALS: BP 119/79
[2018-07-21] MEDS ORDERED: PROTONIX PO ONE (16:00)
== END 2018-07-21 06:20 | disposition home or self-care (01) ==
LOC: CATHLABREC 06:19
PROVIDERS: ATTEND Radiology Diagnostic Radiology
DX: I70.312 Atherosclerosis of unspecified type of bypass graft(s) of the extremities with intermittent claudication, left leg (principal); I25.10 Atherosclerotic heart disease of native coronary artery without angina pectoris; I70.234 Atherosclerosis of native arteries of right leg with ulceration of heel and midfoot; I87.033 Postthrombotic syndrome with ulcer and inflammation of bilateral lower extremity; I87.1 Compression of vein; I87.2 Venous insufficiency (chronic) (peripheral); I10 Essential (primary) hypertension; F41.9 Anxiety disorder, unspecified; F31.9 Bipolar disorder, unspecified; D64.9 Anemia, unspecified; Z91.81 History of falling; Z79.899 Other long term (current) drug therapy; Z87.440 Personal history of urinary (tract) infections; Z86.73 Personal history of transient ischemic attack (TIA), and cerebral infarction without residual deficits; Z79.01 Long term (current) use of anticoagulants
CPT/HCPCS: 36415; 37238; 37239; 37252; 37253; 75820; 75825; 76937; 80048; 85025; 85610; 85730; C1725; C1753; C1769; C1773; C1887; C1894; J0690; J1644; J2250; J2370; J2704; J3010; J7030; Q9967

== ENCOUNTER 2018-08-11 08:26 | Outpatient (CLI) | payer OTHER, MEDICARE ==
--- NOTE | 2018-08-11 16:51 | Vascular Lab Report ---
PROCEDURE: VL ARTERIAL DUPLEX LE RT TECHNIQUE: Grayscale, color flow and Doppler waveform imaging of the arterial structures of the right lower kidney was performed. HISTORY: CHRONIC VENOUS HYPERTENSION WITH ULCER AND INFLAMMATION OF RIGHT COMPARISONS: Arterial duplex study right lower extremity dated May 28, 2018. FINDINGS: There is demonstration antegrade flow in the arterial structures of the right lower extremity from th e proximal common femoral artery to the anterior tibial and posterior tibial arteries. There is demonstration of plaque formation in the common femoral and popliteal arteries. There is biphasic flow in the proximal common femoral artery and in the profunda artery. There is oth erwise monophasic flow demonstrated. Peak systolic velocities are as follows: (Centimeters per second) Common femoral artery proximal 126 Common Femoral artery distal 104 Superficial femoral artery proximal 89 Superficial femoral artery mid 96 Superficial femoral artery distal 84 Deep femoral artery 77 Popliteal artery 82 Posterior tibial artery 16 Anterior tibial artery 45 IMPRESSION: 1. Evidence of diffuse atherosclerotic vascular disease in the arterial structures of the right lower extremity without ultrasound evidence of hemodynamically significant stenosis. This document is electronically signed by Michelle Mcrae MD., August 11 2018 05:49:14 PM ET
--- NOTE | 2018-08-11 20:21 | Vascular Lab Report ---
PROCEDURE: VL VENOUS DUPLEX LE RT TECHNIQUE: Duplex Doppler sonography of the right lower extremity. Rose scale imaging with and witho ut compression, spectral waveform analysis with and without augmentation, and color flow Doppler were employed. HISTORY: CHRONIC VENOUS HYPERTENSION WITH ULCER AND INFLAMMATION OF RIGHT COMPARISONS: None FINDINGS: Technical difficulties due to patient's condition. The veins are patent without any filling defects d emonstrated normal compressibility. Right saphenofemoral junction: 4125 ms of reflux is noted. It measured 8 mm in diameter. Right common femoral vein: 4758ms reflux is noted. Right popliteal vein: 2867 ms reflux is noted Right GSV: 1358 ms of reflux is noted. It measured 6.7 mm in the proximal thigh, 5.4 mm in the mid th igh, 6.2 mm in the distal thigh, 5.2 mm at the, 5.3 mm in the proximal calf, 3.6 mm in the mid calf a nd 3.5 mm in the distal calf. Branches are noted in the mid thigh and mid calf. Right SSV: It measured 7.7 mm in the proximal calf, 7.0 mm in the mid calf and 5.7 mm in the distal c reny. Borderline enlarged right inguinal lymph node is noted measuring 1.5 cm in short axis. IMPRESSION: No evidence of deep venous thrombosis There is evidence of deep venous, and superficial venous reflux as described above. This document is electronically signed by Suman Rojas MD., August 11 2018 09:19:25 PM ET
--- NOTE | 2018-08-12 00:21 | Vascular Lab Report ---
PROCEDURE: VL BINH EVALUATION TECHNIQUE: Noninvasive physiologic studies of the right lower extremity distal posterior tibial and anterior tibial/dorsalis pedis arteries for ankle brachial indices was performed. The study includes Doppler waveform recording for 1-2 levels. HISTORY: Peripheral vascular disease . RLE ULCER COMPARISONS: None . FINDINGS: Waveforms: Biphasic . Brachial pressures: No side to side gradient . Ankle-brachial index (BINH): 1 IMPRESSION: No evidence of significant arterial insufficiency . This document is electronically signed by Zenaida Naranjo DO., August 12 2018 01:18:44 AM ET
== END 2018-08-11 08:27 | disposition home or self-care (01) ==
LOC: VAS 08:26
PROVIDERS: ATTEND Radiology Diagnostic Radiology
DX: I70.232 Atherosclerosis of native arteries of right leg with ulceration of calf (principal); I87.331 Chronic venous hypertension (idiopathic) with ulcer and inflammation of right lower extremity; I10 Essential (primary) hypertension
CPT/HCPCS: 93922

== ENCOUNTER 2018-11-18 08:05 | Outpatient (CLI) | payer MEDICARE ==
--- NOTE | 2018-11-18 15:59 | Vascular Lab Report ---
DUPLEX DOPPLER LOWER EXTREMITY VEINS, RIGHT INDICATION: venous insuff.; eval. for dvt. TECHNIQUE: Duplex doppler imaging was performed through the veins of the right lower extremity using venous comp ression and other maneuvers. COMPARISON: None available. FINDINGS: Common Femoral vein: Small amount of chronic DVT. Superficial Femoral vein: Negative. Popliteal vein: Negative. Calf veins: Negative. Additional findings: None. IMPRESSION: 1. There is no acute DVT seen. Small amount of chronic thrombus is seen in the right common femoral v ein. Signer Name: Aristeo Pedroza MD Signed: 11/18/2018 3:55 PM Workstation Name: [id number]
--- NOTE | 2018-11-18 16:26 | Vascular Lab Report ---
DUPLEX DOPPLER LOWER EXTREMITY ARTERIAL, BILATERAL INDICATION: MAIN. TECHNIQUE: Arterial duplex examination of both lower extremities performed using B-mode, color flow and spectral Doppler assessment. FINDINGS: RIGHT: Common Femoral Artery: PSV 74 cm/sec. Triphasic waveform. Proximal SFA: PSV 92 cm/sec. Triphasic waveform. Mid SFA: PSV 103 cm/sec. Monophasic waveform. Distal SFA: PSV 90 cm/sec. Monophasic waveform. Popliteal artery: PSV 71 cm/sec. Monophasic waveform. Posterior tibial artery: PSV 103 cm/sec. Monophasic waveform. Dorsalis Pedis Artery: PSV 33 cm/sec. Monophasic waveform. LEFT: Common Femoral Artery: PSV 75 cm/sec. Monophasic waveform. Proximal SFA: PSV 66 cm/sec. Monophasic waveform. Mid SFA: PSV 70 cm/sec. Monophasic waveform. Distal SFA: PSV 70 cm/sec. Monophasic waveform. Popliteal artery: PSV 58 cm/sec. Monophasic waveform. Left BKA Right BINH: 1.04. IMPRESSION: 1. There is evidence of disease in the posterior tibial artery with velocity elevation. On B-mode [place] ges there is disease noted in the anterior tibial and posterior tibial arteries. There is disease in the right superficial femoral artery. Monophasic waveforms suggest this may be si gnificant. Monophasic waveforms noted in left leg from the common femoral artery to popliteal artery patent poss ibility iliac disease. Ankle-Brachial Index (BINH): * Calcified arteries > 1.4 * Normal = 0.9-1.4 * Mild PAD = 0.7-0.89 * Moderate PAD = 0.51-0.69 * Severe PAD < 0.5 Doppler Waveform: * Triphasic is normal. * Biphasic is abnormal if clear transition from triphasic signal along vascular tree. * Monophasic is abnormal. Signer Name: Reed Melendrez MD Signed: 11/18/2018 4:22 PM Workstation Name: [id number]
== END 2018-11-18 08:06 | disposition home or self-care (01) ==
LOC: VAS 08:05
PROVIDERS: ATTEND Radiology Diagnostic Radiology
DX: I70.232 Atherosclerosis of native arteries of right leg with ulceration of calf (principal); I82.411 Acute embolism and thrombosis of right femoral vein; I10 Essential (primary) hypertension
CPT/HCPCS: 93922; 93925